=== PATIENT | female | born 1955 | race American Indian/Alaskan Native ===

== ENCOUNTER → 2017-09-29 13:35 | Outpatient (CLI) | payer OTHER, SELFPAY ==
[2017-09-29 14:53] LABS: Hemoglobin A1C% w Est Avg Glu 9.2 % (4.0-6.0)
== END ==
PROVIDERS: PCP Family Medicine; Visit Provider Family Medicine
DX: E11.610 Type 2 diabetes mellitus with diabetic neuropathic arthropathy (principal); Z79.4 Long term (current) use of insulin
CPT/HCPCS: 36415; 83036

== ENCOUNTER → 2017-12-31 12:38 | Outpatient (CLI) | payer OTHER, SELFPAY ==
[2017-12-31 13:22] LABS: Hemoglobin A1C% w Est Avg Glu 7.6 % (4.0-6.0)
[2017-12-31 13:30] LABS: Alanine Aminotransferase 26 IU/L (9-52); Albumin 4.2 g/dL (3.5-5.0); Albumin Globulin Ratio 1.3 (1.0-2.8); Alkaline Phosphatase 81 U/L (38-126); Aspartate Aminotransferase 20 IU/L (14-36); BUN Creatinine Ratio 18.6 (6-22); Bilirubin Total 0.9 mg/dL (0.2-1.3); Blood Urea Nitrogen 13 mg/dL (7-17); Calcium 9.5 mg/dL (8.4-10.2); Carbon Dioxide 30 mmol/L (22-32); Chloride 101 mmol/L (98-107); Estimated Glomerular Filt Rate > 60.0 mL/min (>60); Globulin 3.2 g/dL (1.7-4.1); Glucose 121 mg/dL (80-110); HEMOLYSIS < 15 (0-50); Potassium 4.5 mmol/L (3.4-5.1); Sodium 143 mmol/L (137-145); Total Protein 7.4 g/dL (6.3-8.2)
== END ==
PROVIDERS: PCP Family Medicine; Visit Provider Internal Medicine
DX: E11.610 Type 2 diabetes mellitus with diabetic neuropathic arthropathy (principal); I10 Essential (primary) hypertension; Z79.4 Long term (current) use of insulin
CPT/HCPCS: 36415; 80053; 83036

== ENCOUNTER → 2018-02-17 11:55 | Outpatient (CLI) | payer OTHER, SELFPAY | PROVIDERS: PCP Family Medicine; Visit Provider Internal Medicine | DX: S81.801A Unspecified open wound, right lower leg, initial encounter (principal) | CPT/HCPCS: 87070; 87075; 87205 ==

== ENCOUNTER 2018-04-20 20:45 | Inpatient (IN) | payer OTHER, SELFPAY ==
[2018-04-20] VITALS (7 sets, daily range): BP systolic 181–223; BP diastolic 64–104; PULSE 90–102; RESP 25–28; TEMP 37.3–39.4; O2SAT 90–96; BMI 51.5
--- NOTE | 2018-04-20 21:00 | ED.FEVER ---
HPI - Fever General Chief Complaint: Fever Stated Complaint: COUGHING Time Seen by Provider: 04/20/18 20:53 Source: patient Mode of arrival: ambulatory Limitations: no limitations History of Present Illness HPI Narrative: 62-year-old female with history of insulin-dependent diabetes and congestive heart failure here for evaluation of approximately 3 days of fever, cough, not feeling well. Patient denies any history of COPD. Is not on oxygen at home. Denies any chest pain. Has not tried anything for symptoms prior to arrival. Related Data Previous Rx's Medication Instructions Recorded fluoxetine 20 mg PO Q DAY #90 cap 01/29/16 atorvastatin [Lipitor] 1 tab OR HS #90 tab 04/23/16 Glucose: Test Strips 0 str EXT BID #60 str 08/26/16 Glucose: Home Monitoring Kit 0 kit BID #1 ea 09/16/16 insulin glargine [Lantus U-100 0 unit SQ SEE INSTRUCTIONS #6 bot 12/27/16 Insulin] fluticasone 1 spray INTRANASAL BID #16 gm 06/09/17 gabapentin [Neurontin] 300 mg PO TID #270 cap 06/09/17 furosemide [Lasix] 20 mg PO QDAY #180 tab 07/21/17 metoprolol succinate ER 100 mg 100 mg PO DAILY #180 tab 08/11/17 tablet,extended release 24 hr omeprazole 40 mg capsule,delayed 40 mg PO QDAY #90 cap 08/11/17 release emollient combination no.72 lotion 1 each TOP BID #250 ml 09/29/17 loratadine 10 mg tablet 10 mg PO DAILY #90 tab 09/29/17 insulin aspart U-100 100 unit/mL 32 unit SUBCUT BID #3 vial 12/23/17 subcutaneous solution meloxicam 7.5 mg tablet 7.5 mg PO BIDCC #60 tab 12/29/17 lisinopril 40 mg tablet 40 mg PO QDAY #90 tab 01/20/18 Syringes: Ultra Fine Insulin #100 each 01/30/18 Syringe w/Needle mupirocin 2 % topical ointment 1 applictn TOP BID #30 gram 02/17/18 oxycodone-acetaminophen 5 mg-325 1 tab PO Q6HP PRN #30 tab 03/25/18 mg tablet tolterodine ER 4 mg 4 mg PO DAILY #30 cap 04/02/18 capsule,extended release 24 hr nystatin 100,000 unit/gram topical 1 applictn TOP BID #15 gram 04/03/18 ointment metformin 1,000 mg tablet 1,000 mg PO BIDCC #60 tab 04/09/18 Allergies Allergy/AdvReac Type Severity Reaction Status Date / Time No Known Drug Allergies Allergy Verified 04/20/18 21:02 Review of Systems Constitutional Reports fever(s), Denies headache(s), Reports lethargy and Reports malaise ENT Ears, Nose, Mouth, and Throat: Denies headache(s) Cardiovascular Denies chest pain and Reports dyspnea Respiratory Reports pain with cough and Reports dyspnea Gastrointestinal Gastrointestinal: Denies abdominal pain, Denies nausea and Denies vomiting Genitourinary Denies dysuria Musculoskeletal Reports myalgias Integumentary/Breasts Denies rash Neurologic Denies behavioral changes and Denies headache(s) Psychiatric Denies behavioral changes Hematologic/Lymphatic Comments: Not on anticoagulation PFSH Medical History Congestive heart failure (Acute) Heart disease (Acute) History of hysterectomy (Acute) Osteoarthritis (Acute) Diabetes mellitus (Chronic) Hypertension (Chronic) Peripheral neuropathy (Chronic) Sleep apnea (Chronic) Surgical History History of cholecystectomy (Resolved) History of knee replacement (Resolved 01/2015) Social History household members: family and children Smoking Status: Never smoker Exam Initial Vital Signs Initial Vital Signs: Vital Signs Temperature 102.9 F H 04/20/18 20:58 Pulse Rate 102 H 04/20/18 20:58 Respiratory Rate 28 H 04/20/18 20:58 Blood Pressure 215/91 H 04/20/18 20:58 Pulse Oximetry 90 L 04/20/18 20:58 Const General: cooperative, well groomed, No acute distress and ill appearing Orientation: alert, awake and oriented x3 HENMT Head: normal to inspection and normocephalic Chest Chest: normal inspection of the chest Resp Effort & Inspection: cough, labored, no retractions and tachypneic Auscultation: diminished lung sounds Cardio Rate: regular rate Rhythm: regular rhythm GI Inspection: non-distended Palpation: soft Skin Lesions: no lesions Rashes: no rashes Neuro General: alert, awake and oriented x3 Cognition: normal cognition Speech: speech normal Sensory Exam: no sensory deficits noted Extrem General: normal to inspection and capillary refill normal Psych Appearance: grossly normal and well kempt Course Orders Ordered: ED Orders 04/20/18 20:55 FLU A and B [Influenza A and B by PCR Rapid] Stat 04/20/18 21:00 Chest [XR chest 1V] Stat 04/20/18 21:01 RT Consult Eval and Treat Now 04/20/18 21:05 EKG-12 Lead Stat 04/20/18 21:18 B Type Natriuretic Peptide Stat Complete Blood Count AUTO DIFF Stat Comprehensive Metabolic Panel Stat Ketones (Beta-Hydroxybutyrate) Stat Lactate (Lactic Acid) Stat Lipase Stat Procalcitonin Stat Troponin I Stat 04/20/18 21:20 Blood Culture Stat 04/21/18 Stool Culture Routine Troponin I Routine Urinalysis and Microscopic Routine 04/21/18 00:23 Magnesium Routine 04/21/18 00:28 Consult to Dietitian, Adult Routine Consult to Discharge Planning Routine 04/21/18 00:29 Hemoglobin A1C % Routine 04/21/18 00:30 Consult to Respiratory Therapy Evaluate & Treat Respiratory Panel Routine 04/21/18 05:00 Basic Metabolic Panel DAILY Complete Blood Count AUTO DIFF DAILY 04/22/18 05:00 Basic Metabolic Panel DAILY Complete Blood Count AUTO DIFF DAILY 04/23/18 05:00 Basic Metabolic Panel DAILY Complete Blood Count AUTO DIFF DAILY 04/24/18 05:00 Basic Metabolic Panel DAILY Complete Blood Count AUTO DIFF DAILY Acetaminophen (Tylenol) 650 mg PO Q6HR PRN PRN Reason: As Needed for Fever/Mild Pain Hydrocodone Bitart/Acetaminophen ([place] 5/325) 1 tab PO Q4HR PRN PRN Reason: Pain, Moderate (4-6) Last Admin: 04/21/18 01:51 Dose: 1 tab Hydrocodone Bitart/Acetaminophen ([place] 5/325) 2 tab PO Q4HR PRN PRN Reason: Pain, Severe (7-10) Al Hydrox/Mg Hydrox/Simethicone (Maalox Plus) 30 ml PO Q6HR PRN PRN Reason: Dyspepsia Albuterol/Ipratropium (Duoneb) 3 ml INH Q4H PRN PRN Reason: Shortness Of Breath Albuterol/Ipratropium (Duoneb) 3 ml INH RTBID [place] Atorvastatin Calcium (Lipitor) 40 mg PO BEDTIME [place] Last Admin: 04/21/18 01:41 Dose: Calcium Carbonate (Tums) 1,000 mg PO Q4HR PRN PRN Reason: Dyspepsia Enoxaparin Sodium (Lovenox) 40 mg SUBCUT DAILY [facility] Furosemide (Lasix) 20 mg PO DAILY [facility] Gabapentin (Neurontin) 300 mg PO TID [facility] Azithromycin 500 mg/ Dextrose 250 mls @ 250 mls/hr IV Q24H [facility] Stop: 04/24/18 00:44 Last Admin: 04/21/18 02:41 Dose: 250 mls/hr Ceftriaxone Sodium/Dextrose (Rocephin) 1 gm in 50 mls @ 100 mls/hr IV Q24H [facility] Stop: 04/26/18 00:34 Last Infusion: 04/21/18 02:43 Dose: 0 mls/hr Admin: 04/21/18 01:57 Dose: 100 mls/hr Sodium Chloride (Normal Saline 0.9%) 250 mls @ 21 mls/hr IV Q24H PRN PRN Reason: Flush Last Admin: 04/21/18 01:57 Dose: 21 mls/hr Lisinopril (Zestril) 40 mg PO DAILY [facility] Last Admin: 04/21/18 01:35 Dose: Metformin HCl (Glucophage) 1,000 mg PO BIDWM [facility] Last Admin: 04/21/18 01:36 Dose: Metoprolol Succinate (Toprol Xl) 100 mg PO DAILY [facility] Naloxone HCl (Narcan) 0.2 mg IV Q2MIN PRN PRN Reason: Opiate Reversal Ondansetron HCl (Zofran Odt) 4 mg PO Q8HR PRN PRN Reason: Nausea And Vomiting Discontinued Medications Acetaminophen (Tylenol) 650 mg PO NOW ONE Stop: 04/20/18 21:07 Last Admin: 04/20/18 21:16 Dose: 650 mg Sodium Chloride (Normal Saline 0.9%) 4,218.42 mls @ 1,406.14 mls/hr 30 ml/kg infuse over 3 hr (4218.42 ml) IV CONT [facility] Last Infusion: 04/21/18 01:02 Dose: 0 mls/hr Admin: 04/20/18 21:20 Dose: 1,406.14 mls/hr Levofloxacin (Levaquin) 750 mg in 150 mls @ 100 mls/hr IV NOW ONE Stop: 04/20/18 22:36 Last Infusion: 04/20/18 23:00 Dose: 0 mls/hr Admin: 04/20/18 21:27 Dose: 100 mls/hr Vital Signs - 8 hr 04/20/18 20:58 04/20/18 21:00 04/20/18 21:16 Temperature 102.9 F H 102.9 F H 103 F H Pulse Rate 102 H 95 H Respiratory Rate 28 H 25 H Blood Pressure 215/91 H Blood Pressure [Left Wrist] 223/104 H Pulse Oximetry 90 L 93 04/20/18 22:09 04/20/18 23:01 04/20/18 23:36 Temperature 99.1 F Pulse Rate 97 H 90 Respiratory Rate 26 H 25 H Blood Pressure Blood Pressure [Left Wrist] 192/80 H 181/64 H Pulse Oximetry 93 96 04/20/18 23:51 04/21/18 00:50 Temperature 99.6 F 98.4 F Pulse Rate 88 Respiratory Rate 20 Blood Pressure 185/84 H Blood Pressure [Left Wrist] Pulse Oximetry 98 MDM - Fever Lab Data Attestation: I reviewed the patient's lab results. Result diagrams: 04/20/18 21:18 04/20/18 21:18 Lab Results 04/20/18 04/20/18 04/20/18 Range/Units 20:55 21:18 21:18 WBC 6.3 (4.5-11.0) X10^3/uL RBC 4.70 (4.0-5.2) X10^6/uL Hgb 13.6 (12.0-16.0) g/dL Hct 40.9 (36-46) % MCV 87.1 (80-100) fL MCH 28.9 (26-34) PG MCHC 33.2 (30-36) % RDW 13.2 (11.6-14.8) % Plt Count 208 (150-400) X10^3/uL Neut % (Auto) 76.6 H (50-75) % Lymph % (Auto) 14.8 L (25-40) % [place] % (Auto) 7.9 (3-14) % Eos % (Auto) 0.2 L (2-4) % Baso % (Auto) 0.5 (0-2) % Neut # (Auto) 4800 (3110-0106) /uL Lymph # (Auto) 900 L (2256-8551) /uL [place] # (Auto) 500 (0-900) /uL Eos # (Auto) 0 (0-450) /uL Baso # (Auto) 0 (0-100) /uL Sodium (137-145) mmol/L Potassium (3.4-5.1) mmol/L Chloride (98-107) mmol/L Carbon Dioxide (22-32) mmol/L BUN (7-17) mg/dL Creatinine (0.52-1.04) mg/dL Estimated GFR (>60) mL/min BUN/Creatinine Ratio (6-22) Glucose (80-110) mg/dL Hemoglobin A1c (4.0-6.0) % Lactate (0.7-2.1) mmol/L Calcium (8.4-10.2) mg/dL Magnesium (1.6-2.3) mg/dL Total Bilirubin (0.2-1.3) mg/dL AST (14-36) IU/L ALT (9-52) IU/L Alkaline Phosphatase (38-126) U/L Troponin I (0.01-0.034) ng/mL B-Natriuretic Peptide < 100 (<100) Total Protein (6.3-8.2) g/dL Albumin (3.5-5.0) g/dL Globulin (1.7-4.1) g/dL Albumin/Globulin Ratio (1.0-2.8) Lipase (23-300) U/L Procalcitonin (<0.5) ng/mL Ketones 0.97 H (<0.27) mmol/L Influenza A & B (PCR) Negative (Negative) 04/20/18 04/20/18 04/20/18 Range/Units 21:18 21:18 21:18 WBC (4.5-11.0) X10^3/uL RBC (4.0-5.2) X10^6/uL Hgb (12.0-16.0) g/dL Hct (36-46) % MCV (80-100) fL MCH (26-34) PG MCHC (30-36) % RDW (11.6-14.8) % Plt Count (150-400) X10^3/uL Neut % (Auto) (50-75) % Lymph % (Auto) (25-40) % [place] % (Auto) (3-14) % Eos % (Auto) (2-4) % Baso % (Auto) (0-2) % Neut # (Auto) (4154-2372) /uL Lymph # (Auto) (8959-4059) /uL [place] # (Auto) (0-900) /uL Eos # (Auto) (0-450) /uL Baso # (Auto) (0-100) /uL Sodium 134 L (137-145) mmol/L Potassium 3.8 (3.4-5.1) mmol/L Chloride 97 L (98-107) mmol/L Carbon Dioxide 25 (22-32) mmol/L BUN 8 (7-17) mg/dL Creatinine 0.80 (0.52-1.04) mg/dL Estimated GFR > 60.0 (>60) mL/min BUN/Creatinine Ratio 10.0 (6-22) Glucose 279 H (80-110) mg/dL Hemoglobin A1c (4.0-6.0) % Lactate 1.1 (0.7-2.1) mmol/L Calcium 8.2 L (8.4-10.2) mg/dL Magnesium (1.6-2.3) mg/dL Total Bilirubin 1.0 (0.2-1.3) mg/dL AST 25 (14-36) IU/L ALT 37 (9-52) IU/L Alkaline Phosphatase 90 (38-126) U/L Troponin I < 0.012 (0.01-0.034) ng/mL B-Natriuretic Peptide (<100) Total Protein 7.6 (6.3-8.2) g/dL Albumin 4.1 (3.5-5.0) g/dL Globulin 3.5 (1.7-4.1) g/dL Albumin/Globulin Ratio 1.2 (1.0-2.8) Lipase 10 L (23-300) U/L Procalcitonin < 0.05 (<0.5) ng/mL Ketones (<0.27) mmol/L Influenza A & B (PCR) (Negative) 04/20/18 04/20/18 Range/Units 21:18 21:18 WBC (4.5-11.0) X10^3/uL RBC (4.0-5.2) X10^6/uL Hgb (12.0-16.0) g/dL Hct (36-46) % MCV (80-100) fL MCH (26-34) PG MCHC (30-36) % RDW (11.6-14.8) % Plt Count (150-400) X10^3/uL Neut % (Auto) (50-75) % Lymph % (Auto) (25-40) % [place] % (Auto) (3-14) % Eos % (Auto) (2-4) % Baso % (Auto) (0-2) % Neut # (Auto) (9468-6980) /uL Lymph # (Auto) (2372-1679) /uL [place] # (Auto) (0-900) /uL Eos # (Auto) (0-450) /uL Baso # (Auto) (0-100) /uL Sodium (137-145) mmol/L Potassium (3.4-5.1) mmol/L Chloride (98-107) mmol/L Carbon Dioxide (22-32) mmol/L BUN (7-17) mg/dL Creatinine (0.52-1.04) mg/dL Estimated GFR (>60) mL/min BUN/Creatinine Ratio (6-22) Glucose (80-110) mg/dL Hemoglobin A1c 9.7 H (4.0-6.0) % Lactate (0.7-2.1) mmol/L Calcium (8.4-10.2) mg/dL Magnesium 1.7 (1.6-2.3) mg/dL Total Bilirubin (0.2-1.3) mg/dL AST (14-36) IU/L ALT (9-52) IU/L Alkaline Phosphatase (38-126) U/L Troponin I (0.01-0.034) ng/mL B-Natriuretic Peptide (<100) Total Protein (6.3-8.2) g/dL Albumin (3.5-5.0) g/dL Globulin (1.7-4.1) g/dL Albumin/Globulin Ratio (1.0-2.8) Lipase (23-300) U/L Procalcitonin (<0.5) ng/mL Ketones (<0.27) mmol/L Influenza A & B (PCR) (Negative) Point of Care Testing Glucose POC 268 Imaging Data Chest x-ray: Radiologist's impression: PROCEDURE: XR CHEST 1V INDICATIONS: shortness of breath/fever TECHNIQUE: One view of the chest was acquired. COMPARISON: [facility], CHEST 2 VIEW, 05/20/2016, 16:21. [facility], CHEST 2 VIEW, 04/19/2016, 12:03. FINDINGS: Surgical changes and devices: None. Lungs and pleura: No pleural effusions or pneumothorax. Mild increased pulmonary vascularity. Minimal increased right basilar opacity. Mediastinum: Mediastinal contours appear normal. Heart size is normal. Bones and chest wall: No suspicious bony lesions. Overlying soft tissues appear unremarkable. IMPRESSION: Mild increased vascularity with minimal increased right basilar opacity. The latter could be represent focal edema or developing airspace disease such as pneumonia and/or atelectasis. Dictated by: Dianne Dominguez M.D. on 04/20/2018 at 21:36 Approved by: Dianne Dominguez M.D. on 04/20/2018 at 21:37 ECG Data Attestation: I personally reviewed and interpreted this ECG as follows: Prior ECG tracings: not available for review Interpretation: Sinus rhythm Ventricular rate of 96 Normal axis Normal QRS Normal QTC No ST T wave changes MDM Narrative Medical decision making narrative: Patient arrived was tachypneic and hypoxic to the high 80s on room air. This improved with oxygen by nasal cannula. Chest x-ray is concerning for pneumonia. She was given antibiotics here in the emergency department. She was hyper glycemic however the rest of her workup was negative for DKA. Blood cultures were obtained. Lactate and procalcitonin was negative. Clinically patient has pneumonia. Discussed case with an piece got the night hospitalist who will admit the patient for further evaluation and treatment. Discharge Plan Departure Patient Disposition: Admitted As Inpatient Clinical Impression: Pneumonia, Hyperglycemia, Fever, Shortness of breath Discharge Date/Time: 04/21/18 01:02 Interventions: ED Discharge Assessment Last Done: 04/21/18 01:01 Admit Date/Time: 04/20/18 23:57 Admit Provider: Eduardo Sims
[2018-04-20] MEDS: ACETAMINOPHEN 325 MG TABLET 650 MG PO (21:16)
[2018-04-20 21:17] LABS: Influenza A and B by PCR Rapid Negative (Negative)
[2018-04-20] MEDS: SODIUM CHLORIDE 0.9% 1406.14 ML IV (21:20)
--- NOTE | 2018-04-20 21:21 | PC.NURSE ---
1000ml NS started of septic fluid bolus
[2018-04-20] MEDS: levoFLOXacin 750 MG/150 ML PIGGYBACK 100 MG IV (21:27)
--- NOTE | 2018-04-20 21:27 | PC.NURSE ---
blood cultures drawn, abx started
[2018-04-20 21:32] LABS: Add Manual Diff / Slide Review NO; Basophils Absolute Auto 0 /uL (0-100); Basophils Percent Auto 0.5 % (0-2); Eosinophils Absolute Auto 0 /uL (0-450); Eosinophils Percent Auto 0.2 % (2-4); Hematocrit 40.9 % (36-46); Hemoglobin 13.6 g/dL (12.0-16.0); Lymphocytes Absolute Auto 900 /uL (1100-4500); Lymphocytes Percent Auto 14.8 % (25-40); Mean Corpuscular HGB Conc 33.2 % (30-36); Mean Corpuscular Hemoglobin 28.9 PG (26-34); Mean Corpuscular Volume 87.1 fL (80-100); Monocytes Absolute Auto 500 /uL (0-900); Monocytes Percent Auto 7.9 % (3-14); Neutrophils Absolute Auto 4800 /uL (1500-7000); Neutrophils Percent Auto 76.6 % (50-75); Platelet Count 208 X10^3/uL (150-400); Red Cell Distribution Width 13.2 % (11.6-14.8); White Blood Cell Count 6.3 X10^3/uL (4.5-11.0)
[2018-04-20 21:42] LABS: Lactate (Lactic Acid) 1.1 mmol/L (0.7-2.1)
[2018-04-20 21:43] LABS: Alanine Aminotransferase 37 IU/L (9-52); Albumin 4.1 g/dL (3.5-5.0); Albumin Globulin Ratio 1.2 (1.0-2.8); Alkaline Phosphatase 90 U/L (38-126); Aspartate Aminotransferase 25 IU/L (14-36); Blood Urea Nitrogen 8 mg/dL (7-17); Calcium 8.2 mg/dL (8.4-10.2); Carbon Dioxide 25 mmol/L (22-32); Chloride 97 mmol/L (98-107); Estimated Glomerular Filt Rate > 60.0 mL/min (>60); Globulin 3.5 g/dL (1.7-4.1); Glucose 279 mg/dL (80-110); HEMOLYSIS < 15 (0-50); Lipase 10 U/L (23-300); Potassium 3.8 mmol/L (3.4-5.1); Sodium 134 mmol/L (137-145); Total Protein 7.6 g/dL (6.3-8.2)
[2018-04-20 21:47] LABS: Ketones (Beta-Hydroxybutyrate) 0.97 mmol/L (<0.27)
[2018-04-20 22:00] LABS: Troponin I < 0.012 ng/mL (0.01-0.034)
[2018-04-20 22:05] LABS: Procalcitonin < 0.05 ng/mL (<0.5)
[2018-04-20 22:09] LABS: B Type Natriuretic Peptide < 100 (<100)
--- NOTE | 2018-04-20 22:10 | PC.NURSE ---
on arrival pt sats were in the upper 80s, pt placed on 2l nasal cannula, sats improved to 93
--- NOTE | 2018-04-20 23:28 | PC.NURSE ---
NS bag # 2 and 3 of 4.2 hung.
[2018-04-21] VITALS (10 sets, daily range): BP systolic 140–185; BP diastolic 65–84; PULSE 61–89; RESP 16–20; TEMP 36.4–37.2; O2SAT 93–99; BMI 51.5
--- NOTE | 2018-04-21 00:44 | PM.HP.1 ---
History of Present Illness Date Patient Seen: 04/20/18 Time Patient Seen: 23:50 Chief complaint: COUGHING Narrative: Ms Jules this is a 62-year-old morbidly obese female with a history of diabetes , hypertension and CHF who presents to the hospital for acute and fever dyspnea, cough and fever. The patient states that her symptoms began abruptly 3 days ago without significant prodrome symptoms. She describes difficulty breathing, wheezing and a cough that is productive for clear sputum. She had associated nausea, vomiting and diarrhea and complains of orthostatic dizziness and headache. She also reports lower chest and epigastric pressure that is worse with deep inspiration but endorses previous cardiac workup and EKG is suggestive of an inferior [place]. Also of note patient underwent cardiac workup in 2016 with an echocardiogram in June, Lexiscan in October and a left heart catheterization in January of that year. Upon arrival in the emergency department patient's initial temperature was 102.9?. Patient was also found to have a pulse oximetry of 90% on air. The patient is also found to be hyperglycemic with a blood sugar 279 on chemistries. The patient states that she has been too sick the last few days to use her insulin indicating that she takes glargine and sliding scale insulin. 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 The patient is a past smoker having quit 40 years ago and describes herself as a social smoker at that time. Patient does not consume alcohol. She does not use recreational pharmaceuticals or cannabis products. Advanced directives: The patient wishes full resuscitation, she has not designated a surrogate decision maker. Meds Home Medications Medication Instructions Recorded Confirmed Type fluoxetine 20 mg PO Q DAY #90 cap 01/29/16 02/19/18 Rx atorvastatin [Lipitor] 1 tab OR HS #90 tab 04/23/16 02/19/18 Rx Glucose: Test Strips 0 str EXT BID #60 str 08/26/16 02/19/18 Rx Glucose: Home Monitoring Kit 0 kit BID #1 ea 09/16/16 02/19/18 Rx insulin glargine [Lantus U-100 0 unit SQ SEE INSTRUCTIONS #6 bot 12/27/16 02/19/18 Rx Insulin] fluticasone 1 spray INTRANASAL BID #16 gm 06/09/17 02/19/18 Rx gabapentin [Neurontin] 300 mg PO TID #270 cap 06/09/17 02/19/18 Rx furosemide [Lasix] 20 mg PO QDAY #180 tab 07/21/17 02/19/18 Rx metoprolol succinate ER 100 mg 100 mg PO DAILY #180 tab 08/11/17 02/19/18 Rx tablet,extended release 24 hr omeprazole 40 mg capsule,delayed 40 mg PO QDAY #90 cap 08/11/17 02/19/18 Rx release emollient combination no.72 lotion 1 each TOP BID #250 ml 09/29/17 02/19/18 Rx loratadine 10 mg tablet 10 mg PO DAILY #90 tab 09/29/17 02/19/18 Rx insulin aspart U-100 100 unit/mL 32 unit SUBCUT BID #3 vial 12/23/17 02/19/18 Rx subcutaneous solution meloxicam 7.5 mg tablet 7.5 mg PO BIDCC #60 tab 12/29/17 02/19/18 Rx lisinopril 40 mg tablet 40 mg PO QDAY #90 tab 01/20/18 02/19/18 Rx Syringes: Ultra Fine Insulin #100 each 01/30/18 02/19/18 Rx Syringe w/Needle mupirocin 2 % topical ointment 1 applictn TOP BID #30 gram 02/17/18 02/19/18 Rx oxycodone-acetaminophen 5 mg-325 1 tab PO Q6HP PRN #30 tab 03/25/18 Rx mg tablet tolterodine ER 4 mg 4 mg PO DAILY #30 cap 04/02/18 Rx capsule,extended release 24 hr nystatin 100,000 unit/gram topical 1 applictn TOP BID #15 gram 04/03/18 Rx ointment metformin 1,000 mg tablet 1,000 mg PO BIDCC #60 tab 04/09/18 Rx Allergies Allergy/AdvReac Type Severity Reaction Status Date / Time No Known Drug Allergies Allergy Verified 04/20/18 21:02 Review of Systems Review of Systems Constitutional: Positive for fevers and chills, sweats and malaise, poor appetite Denies weight chaneg Eyes: Denies visual changes, denies floaters, diplopia ENT: Positive for headache nasal congestion and left lymph node pain, Denies hearing changes, ear pain, dysphagia, dentalgia, no neck stiffness Respiratory: Positive for cough intermittently productive for clear sputum, wheezing and shortness of breath Cardiovascular: Pleuritic low chest and epigastric pain, orthostatic dizziness denies palpitations, syncope, edema Gastrointestinal: Positive for nausea, vomiting, dry heaves, diarrhea, Denies abdominal pain, denies blood in stool. Genitourinary: denies vaginal discharge, no complains of frequency, burning or urgency, hematuria on voiding Musculoskeletal: Positive for history of osteoarthritis, partial right knee replacement, left knee pain, lumbar spine pain, denies falls, weakness, muscle cramps, myalgia or joint swelling. Integumentary: Positive for abdominal skin rash, denies skin lesions, masses, hives, itching or hair loss Neurological: denies dizziness, confusion, speech difficulties or seizures Psychiatric: denies disturbances in thought, attentions or mood, denies substance abuse Endocrine: Positive for diabetes, denies goiter, lethargy, abnormal sweating, and heat/cold intolerance. Heme/lymph: Denies lymphadenopathy, abnormal bleeding or bruising Exam Vital Signs (past 8 hours): - 04/20/18 20:58 04/20/18 21:00 04/20/18 21:16 Temperature 102.9 F H 102.9 F H 103 F H Pulse Rate 102 H 95 H Respiratory Rate 28 H 25 H Blood Pressure 215/91 H Blood Pressure [Left Wrist] 223/104 H Pulse Oximetry 90 L 93 04/20/18 22:09 04/20/18 23:01 04/20/18 23:36 Temperature 99.1 F Pulse Rate 97 H 90 Respiratory Rate 26 H 25 H Blood Pressure Blood Pressure [Left Wrist] 192/80 H 181/64 H Pulse Oximetry 93 96 04/20/18 23:51 Temperature 99.6 F Pulse Rate Respiratory Rate Blood Pressure Blood Pressure [Left Wrist] Pulse Oximetry Oxygen Delivery Method Nasal Cannula Oxygen Flow Rate 2 Narrative Exam Narrative: General: Well developed, morbidly obese female, BMI 50.6, moderately ill-appearing Skin: Warm, dry, pink, no rashes, no visible lesions HEENT: Normocephalic, PERRLA, EOMs intact without nystagmus, conjunctiva moist, sclera is anicteric, hearing grossly normal, no sinus tenderness to percussion, no rhinorrhea, oropharynx is moist and pink without lesions or exudate, on dentition, uvula midline, posterior pharynx without inflammation, left superior anterior cervical lymphadenopathy Neck: Supple, no masses, thyroid non tender without thyromegaly or nodules, trachea midline, no carotid bruits or JVD, no supraclavicular lymphadenopathy Cardiac: Regular rate and rhythm, S1-S2, no murmur, no gallops or rubs, 2+ radial pulse, 1+ dorsalis pedis pulse, capillary refill is brisk, trace pedal edema Chest: No pain to AP and lateral compression, shallow respirations, symmetrical movement, breathing non labored, dry nonproductive cough present, BS diminished globally with expiratory wheezes, right basilar crackles not clearing with cough Abdomen: Large round, no epigastric or abdominal tenderness or guarding, no masses or organomegaly, exam limited by body habitus no flank or suprapubic pain, BS normal. Back: Normal curvature, lumbar tenderness to palpation, no palpable muscle spasms, no CVA tenderness on percussion Extremities: Preserved range of motion, no synovial effusions or deformities, strength 5/5 and symmetrical, stable gait without accessory devices Neuro: AAOx4, cranial nerves II-XII grossly intact, reflexes 1+ and symmetrical no paresthesias Psych: Somewhat flat affect, cooperative, stable mood and congruent affect Objective Labs Result Diagrams: 04/20/18 21:18 04/20/18 21:18 Labs: Laboratory Results - last 24 hr 04/20/18 04/20/18 04/20/18 20:55 21:18 21:18 WBC 6.3 RBC 4.70 Hgb 13.6 Hct 40.9 MCV 87.1 MCH 28.9 MCHC 33.2 RDW 13.2 Plt Count 208 Neut % (Auto) 76.6 H Lymph % (Auto) 14.8 L [place] % (Auto) 7.9 Eos % (Auto) 0.2 L Baso % (Auto) 0.5 Neut # (Auto) 4800 Lymph # (Auto) 900 L [place] # (Auto) 500 Eos # (Auto) 0 Baso # (Auto) 0 Sodium Potassium Chloride Carbon Dioxide BUN Creatinine Estimated GFR BUN/Creatinine Ratio Glucose Lactate Calcium Total Bilirubin AST ALT Alkaline Phosphatase Troponin I B-Natriuretic Peptide < 100 Total Protein Albumin Globulin Albumin/Globulin Ratio Lipase Procalcitonin Ketones 0.97 H Influenza A & B (PCR) Negative 04/20/18 04/20/18 04/20/18 21:18 21:18 21:18 WBC RBC Hgb Hct MCV MCH MCHC RDW Plt Count Neut % (Auto) Lymph % (Auto) [place] % (Auto) Eos % (Auto) Baso % (Auto) Neut # (Auto) Lymph # (Auto) [place] # (Auto) Eos # (Auto) Baso # (Auto) Sodium 134 L Potassium 3.8 Chloride 97 L Carbon Dioxide 25 BUN 8 Creatinine 0.80 Estimated GFR > 60.0 BUN/Creatinine Ratio 10.0 Glucose 279 H Lactate 1.1 Calcium 8.2 L Total Bilirubin 1.0 AST 25 ALT 37 Alkaline Phosphatase 90 Troponin I < 0.012 B-Natriuretic Peptide Total Protein 7.6 Albumin 4.1 Globulin 3.5 Albumin/Globulin Ratio 1.2 Lipase 10 L Procalcitonin < 0.05 Ketones Influenza A & B (PCR) PATIENT NAME: ROSE MARIE JULES : 1955 EXAM DATE: 04/20/2018 21:[address] MOLLY LINDSAY M.D. CC: MODALITY: CR PATIENT TYPE: ER CONTRAST MEDIA: STATION ID: [id number] FLUORO TIME: PROCEDURE: XR CHEST 1V INDICATIONS: shortness of breath/fever TECHNIQUE: One view of the chest was acquired. COMPARISON: [facility], CHEST 2 VIEW, 05/20/2016, 16:21. [facility], CHEST 2 VIEW, 04/19/2016, 12:03. FINDINGS: Surgical changes and devices: None. Lungs and pleura: No pleural effusions or pneumothorax. Mild increased pulmonary vascularity. Minimal increased right basilar opacity. Mediastinum: Mediastinal contours appear normal. Heart size is normal. Bones and chest wall: No suspicious bony lesions. Overlying soft tissues appear unremarkable. IMPRESSION: Mild increased vascularity with minimal increased right basilar opacity. The latter could be represent focal edema or developing airspace disease such as pneumonia and/or atelectasis. Dictated by: Dianne Dominguez M.D. on 04/20/2018 at 21:36 Approved by: Dianne Dominguez M.D. on 04/20/2018 at 21:37 Assessment & Plan Plan: Assessment/Plan Narrative: 1. Pneumonia, community acquired, acute -patient presents with sudden onset of symptoms 3 days ago with intermittently productive cough and high fever -white cell count is 6.3 however there is a left shift present, procalcitonin and lactate are both negative, flu a and B are negative, -chest x-ray demonstrates right basilar opacity -will obtain a respiratory panel -antibiotics azithromycin for 2 days and ceftriaxone daily days -respiratory to consult and DuoNeb scheduled twice daily and as needed -oxygen as needed keep sats greater than 92% 2. Diabetes type 2, uncontrolled, chronic -patient presents with morbid obesity BMI of 50.6 -hyperglycemic on chemistry at 279, hemoglobin A1c 9.7 -positive for neuropathy, no evidence of nephropathy or retinopathy -patient states has not been taking her insulin the last few days due to feeling poorly -Accu-Cheks AC and HS, sliding-scale insulin. -dietary to consult, patient will need diabetic education 3. Congestive heart failure, present on admission, chronic -chest x-ray demonstrates vascular congestion -troponin is less than 0.012, will recheck troponin with morning labs -prior history of echocardiogram in June 2016 demonstrating normal left ventricle with diastolic dysfunction, EF 60-65% at that time. Patient had 1 Lexiscan on 10/25/2016 and like heart catheterization on 01/23/2017. -12 lead EKG is suggestive of inferior infarct with small Q-waves inferiorly, questionable ST depression in V5 and V6 however there are no EKG changes compared with tracing of 08/15/2016. -patient has been on Lasix 20 mg daily it appears dehydrated and has only trace pedal edema bilateral ankles. She received 1 L of IV fluid emergency department. 4. Hypertension, present on admission, chronic -patient's pressures in the ER are variable between 130s and 180s -blood pressures have been taken on patient's wrist due to obesity -patient typically takes lisinopril 40 metoprolol 100 for hypertension which will be continued 5. Hyperlipidemia, chronic, presumed stable -the patient is taking atorvastatin 40 mg daily 6. Osteoarthritis, chronic -patient has had a partial knee replacement on the right has chronic pain left -patient also describes chronic lumbar spine pain -she has been taking gabapentin 300 mg t.i.d. which will be continued ,-will cover pain with Tylenol and 1-2 [place] as needed The patient is admitted inpatient and will remain past 2 midnights.
[2018-04-21 00:48] LABS: Magnesium 1.7 mg/dL (1.6-2.3)
--- NOTE | 2018-04-21 01:03 | PC.NURSE ---
Fluids to be continued in acute care. ED provider reccomended AC RN get an order to stop fluids and change to TKO rate. JOB Polanco informed by JOB everett.
[2018-04-21 01:12] LABS: Hemoglobin A1C% w Est Avg Glu 9.7 % (4.0-6.0)
[2018-04-21] MEDS: HYDROCODONE/ACET 5/325 TABLET 1 TAB PO ×2 (01:51→09:23)
[2018-04-21] MEDS: SODIUM CHLORIDE 0.9% 250 ML 21 ML IV (01:57)
[2018-04-21] MEDS: CEFTRIAXONE 1 GM/50 ML FROZ.PIGGY IV (01:57)
[2018-04-21] MEDS: AZITHROMYCIN 500 MG in DEXTROSE 5% IN WATER 250 ML IV (02:41)
--- NOTE | 2018-04-21 05:24 | PC.NURSE ---
Shift note: Admitted pt to unit 00:50, pt able to ambulate with FWW but c/o SOB and weakness, also states that she has no cartilage in left knee which makes walking difficult and hx of partial right knee replacement, uses walker or cane at home. Pt has bruising to sacrum but denies recent falls. Pt reports hx of ulcer to right lower extremity that at admission is slightly indurated but appears to be healed. Pt c/o diarrhea since start of illness 3 days ago, and has a hx of stress incontinence for which she wears an adult brief since 1987. Diarrhea was present in brief and adelita-care and brief change were performed, subsequent order for stool and urine sample ordered d/t on-going c/o diarrhea. Pt has various c/o pain but specifically in her back that was 8/10 on pain scale and treated per JUN. Pt appeared to be resting comfortably and this RN noted that pt was talking in her sleep. VSS noted for hypertension of 185/84 on admission with hx of HTN managed with medications. Breath sounds were absent in the bases and diminished throughout with no wheezing or adventitious breath sounds but pt unable to take deep breaths d/t complaints of pain on inspiration. At this time on 2L NC with O2 sat of 99. Pt given abx per JUN but no IV fluids at this time d/t CHF and PIV is saline locked.
[2018-04-21 06:45] LABS: Add Manual Diff / Slide Review NO; Basophils Absolute Auto 0 /uL (0-100); Basophils Percent Auto 0.6 % (0-2); Eosinophils Absolute Auto 0 /uL (0-450); Eosinophils Percent Auto 0.2 % (2-4); Hematocrit 38.4 % (36-46); Hemoglobin 12.6 g/dL (12.0-16.0); Lymphocytes Absolute Auto 1100 /uL (1100-4500); Lymphocytes Percent Auto 18.9 % (25-40); Mean Corpuscular HGB Conc 32.9 % (30-36); Mean Corpuscular Hemoglobin 28.8 PG (26-34); Mean Corpuscular Volume 87.6 fL (80-100); Monocytes Absolute Auto 500 /uL (0-900); Monocytes Percent Auto 9.3 % (3-14); Neutrophils Absolute Auto 4000 /uL (1500-7000); Platelet Count 181 X10^3/uL (150-400); Red Blood Cell Count 4.38 X10^6/uL (4.0-5.2); Red Cell Distribution Width 13.4 % (11.6-14.8); White Blood Cell Count 5.7 X10^3/uL (4.5-11.0)
[2018-04-21 06:51] LABS: BUN Creatinine Ratio 11.7 (6-22); Blood Urea Nitrogen 7 mg/dL (7-17); Calcium 7.4 mg/dL (8.4-10.2); Carbon Dioxide 24 mmol/L (22-32); Chloride 102 mmol/L (98-107); Estimated Glomerular Filt Rate > 60.0 mL/min (>60); Glucose 243 mg/dL (80-110); HEMOLYSIS < 15 (0-50); Potassium 3.9 mmol/L (3.4-5.1); Sodium 135 mmol/L (137-145)
[2018-04-21 07:09] LABS: Troponin I < 0.012 ng/mL (0.01-0.034)
--- NOTE | 2018-04-21 08:54 | CM.DANOTE ---
DCP: Case received, EMR reviewed and met with patient. Introduced self and role. DCP template completed with information currently available. Patient is a 62 year old female who admitted yesterday evening to the care of the hospitalist team. PCP: Dr. Patel. Payer: confirmed: [facility]. Patient came to hospital via family vehicle due to severe cough and weakness. Patient has history of IDDM as well as CHF. Patient carries diagnosis of Pneumonia. Met with patient in room. Pleasant, alert and oriented. 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 Has other son and [id number] as well, and offer support as well. She stated that her son has family to care for him while she is here in hospital. Patient is independent at home, uses no walker or cane, and drives. Asked her if she had any issues wither her medications, insulin, etc. She stated that she has had no problem with her medications to manage her blood sugars. Patient stated that these symptoms of coughing had gone on for approximately 3 ays, and she developed a fever as well. She has been for 25 years, and is a full code. P: DCP to continue to follow and offer any resources that patient may need at discharge. She should be able to go home when she is medically stable. Fatmata Mendenhall RN/Quality Assurance Nurse
[2018-04-21] MEDS: ACETAMINOPHEN 325 MG TABLET 650 MG PO (09:24)
[2018-04-21] MEDS: FUROSEMIDE 20 MG TABLET PO (09:25)
[2018-04-21] MEDS: METFORMIN HCL 500 MG TABLET 1000 MG PO ×2 (09:25→17:01)
[2018-04-21] MEDS: ENOXAPARIN 40 MG/0.4 ML SYRINGE SUBCUT (09:25)
[2018-04-21] MEDS: METOPROLOL ER 50 MG TABLET 100 MG PO (09:26)
[2018-04-21] MEDS: GABAPENTIN 300 MG CAPSULE PO ×2 (09:26→20:45)
[2018-04-21] MEDS: LISINOPRIL 20 MG TABLET 40 MG PO (09:26)
[2018-04-21] MEDS: ALBUTEROL/IPRATROPIUM 3 ML AMPUL INH ×2 (09:28→19:41)
--- NOTE | 2018-04-21 13:12 | PC.NURSE ---
Addendum entered by Angelique Layton R.N. 04/21/18 15:52: Note left for Dr Villa requesting that she order the sliding scale insulin that this copywriter had talked with her about earlier (I tried but could not figure out to input it and pharmacy couldn't help me either). Also, mentioned in the note that patient had 1 bottle (anaerobic) of blood cultures positive for Gram+ Cocci. Placed on contact and droplet isolation. Droplet per MD Villa, as a cautionary for possible norovirus, until all cultures come back. Original Note: Home med list: Patient unsure exactly which meds she takes. Her PCP was Dr Linn at [facility] and she was not due to see her new PCP until later this month. This copywriter left message at [facility] (via machine packager to pass on to RN) asking if they can fax up a copy of her list of meds from Dr Linn. Will look out for fax, office is open until 1700 if fax not received.
[2018-04-21 16:05] LABS: RBC Urine None Seen (0-5/HPF)
[2018-04-21 16:08] LABS: Appearance Urine UA CLEAR; Bilirubin Urine UA NEGATIVE (NEGATIVE); Color Urine UA YELLOW; Glucose Urine UA 2+ g/dL (Negative); Ketones Urine UA 1+ (NEGATIVE); Leukocyte Esterase Urine UA NEGATIVE (NEGATIVE); Nitrite Urine UA POSITIVE (Negative); Occult Blood Urine UA NEGATIVE (Negative); Protein Urine UA NEGATIVE (Negative); Urobilinogen Urine UA 0.2 E.U./dL (0.2)
[2018-04-21 16:15] LABS: Squamous Epithelial Cell Urine 1-5 /HPF; WBC Urine 1-5/HPF (0-5/HPF)
[2018-04-21 16:16] LABS: Bacteria Urine Moderate (10-30); Culture Indicated Urine Specimen Cultured
[2018-04-21 16:44] LABS: Enterococcus species Not Detected (Not Detect); Methicillin-resistant gene Detected (Not Detect)
[2018-04-21 16:45] LABS: Acinetobacter baumannii Not Detected (Not Detect); Candida albicans Not Detected (Not Detect); Candida glabrata Not Detected (Not Detect); Candida krusei Not Detected (Not Detect); Candida parapsilosis Not Detected (Not Detect); Candida tropicalis Not Detected (Not Detect); E. coli Not Detected (Not Detect); Enterobacter cloacae complex Not Detected (Not Detect); Enterobacteriaceae species Not Detected (Not Detect); Haemophilus influenzae Not Detected (Not Detect); Listeria monocytogenes Not Detected (Not Detect); Neisseria meningitidis Not Detected (Not Detect); Proteus species Not Detected (Not Detect); Pseudomonas aeruginosa Not Detected (Not Detect); Serratia marcescens Not Detected (Not Detect); Staphylococcus species Detected (Not Detect); Streptococcus agalactiae (Gr B Not Detected (Not Detect); Streptococcus pneumonia Not Detected (Not Detect); Streptococcus pyogenes (Gr A) Not Detected (Not Detect); Streptococcus species Not Detected (Not Detect)
[2018-04-21] MEDS: HYDROCODONE/ACET 5/325 TABLET 2 TAB PO ×2 (17:09→21:49)
[2018-04-21 18:09] LABS: Adenovirus Not Detected (Not Detect); Bordetella pertussis Not Detected (Not Detect); Chlamydophila pneumoniae Not Detected (Not Detect); Coronavirus 229E Not Detected (Not Detect); Coronavirus HKU1 Not Detected (Not Detect); Coronavirus NL 63 Not Detected (Not Detect); Coronavirus OC43 Not Detected (Not Detect); Human Metapneumovirus Not Detected (Not Detect); Human Rhinovirus/Enterovirus Not Detected (Not Detect); Influenza A Not Detected (Not Detect); Influenza B Not Detected (Not Detect); Mycoplasma pneumoniae Not Detected (Not Detect); Parainfluenza Virus 1 Not Detected (Not Detect); Parainfluenza Virus 2 Not Detected (Not Detect); Parainfluenza Virus 3 Not Detected (Not Detect); Parainfluenza Virus 4 Not Detected (Not Detect); Respiratory Syncytial Virus Detected (Not Detect)
[2018-04-21 18:11] LABS: Adenovirus F 40/41 Not Detected (Not Detect); Astrovirus Not Detected (Not Detect); Campylobacter Not Detected (Not Detect); Clostridium difficile toxin AB Not Detected (Not Detect); Cryptosporidium Not Detected (Not Detect); Cyclospora cayetanensis Not Detected (Not Detect); Entamoeba histolytica Not Detected (Not Detect); Enteroaggregative E.coli Not Detected (Not Detect); Enteropathogenic E.coli Not Detected (Not Detect); Enterotoxigenic E.coli It/st Not Detected (Not Detect); Giardia lamblia Not Detected (Not Detect); Norovirus GI/GII Not Detected (Not Detect); Plesiomonsa shigelloides Not Detected (Not Detect); Rotavirus A Not Detected (Not Detect); Salmonella Not Detected (Not Detect); Sapovirus Not Detected (Not Detect); Shiga-like toxin-prod E.coli Not Detected (Not Detect); Shigella/Enteroinvasive E.coli Not Detected (Not Detect); Vibrio Not Detected (Not Detect); Vibrio cholerae Not Detected (Not Detect); Yersinia enterocolitica Not Detected (Not Detect)
[2018-04-21] MEDS: ONDANSETRON 4 MG ODT PO (19:38)
[2018-04-21] MEDS: ATORVASTATIN 20 MG TABLET 40 MG PO (20:44)
[2018-04-21] MEDS: INSULIN ASPART 100 UNIT/ML INSULN PEN SUBCUT (20:45)
[2018-04-21] MEDS: SODIUM CHLORIDE 0.9% FLUSH 10 ML IV (20:46)
[2018-04-21] MEDS: INSULIN GLARGINE 100 UNIT/ML 3ML PEN 20 UNIT SUBCUT (20:46)
[2018-04-22] VITALS (7 sets, daily range): BP systolic 114–148; BP diastolic 56–76; PULSE 56–66; RESP 15–20; TEMP 36.5–36.6; O2SAT 93–96
[2018-04-22] MEDS: SODIUM CHLORIDE 0.9% FLUSH 10 ML IV ×3 (00:30→12:27)
[2018-04-22] MEDS: CEFTRIAXONE 1 GM/50 ML FROZ.PIGGY IV (00:30)
[2018-04-22] MEDS: ALBUTEROL/IPRATROPIUM 3 ML AMPUL INH ×3 (00:50→12:45)
[2018-04-22] MEDS: AZITHROMYCIN 500 MG in DEXTROSE 5% IN WATER 250 ML IV (01:11)
--- NOTE | 2018-04-22 01:37 | PC.NURSE ---
Addendum entered by Tawny Arita R.N. 04/22/18 05:47: Up to bathroom with walker and SBA. Noted buttocks and posterior thighs reddened but no open areas. Also noted reddened right LE with quarter size darker red area but nothing is open. Sat now while awake is 97% on 2L/min oxygen. States pain currently 2/10 and tolerable. Original Note: Addendum entered by Tawny Arita R.N. 04/22/18 03:19: Has been asleep and sats 92% with CPAP + 2L oxygen. CBG currently 267. Complains of 6/10 back pain so medicated with [place]. Original Note: Patient is alert and oriented. Breath sounds tight with expiratory wheezes throughout. Oxygen at 2L/min per NC with sat of 97%. RT placed on CPAP without oxygen but patient noted to desat into 70's so now has oxygen bled in and sat is 98%. Patient states she is coughing up clear sputum but no coughing has been noted since start of shift. HRR but bradycardic at 56 bpm. Denies nausea. BT present and abdomen is soft; had loose stools on previous shift. Denies dysuria, frequency or urgency. Is able to move self in bed but due to weakness gets out of bed only with assistance. Fall risk score is moderate; bed alarm is activated because patient does not always call appropriately. Denies pain. Wearing bilateral SCD's. On contact precautions for gm + cocci on blood culture and droplet for RSV +.
[2018-04-22] MEDS: HYDROCODONE/ACET 5/325 TABLET 1 TAB PO (03:18)
[2018-04-22] MEDS: PANTOPRAZOLE 40 MG TABLET PO (06:01)
[2018-04-22 06:25] LABS: Add Manual Diff / Slide Review NO; Basophils Absolute Auto 0 /uL (0-100); Basophils Percent Auto 0.5 % (0-2); Eosinophils Absolute Auto 200 /uL (0-450); Eosinophils Percent Auto 3.4 % (2-4); Hematocrit 37.3 % (36-46); Hemoglobin 12.2 g/dL (12.0-16.0); Lymphocytes Absolute Auto 1900 /uL (1100-4500); Mean Corpuscular HGB Conc 32.8 % (30-36); Mean Corpuscular Hemoglobin 28.8 PG (26-34); Mean Corpuscular Volume 87.9 fL (80-100); Monocytes Absolute Auto 400 /uL (0-900); Monocytes Percent Auto 8.8 % (3-14); Neutrophils Absolute Auto 2400 /uL (1500-7000); Neutrophils Percent Auto 49.3 % (50-75); Platelet Count 197 X10^3/uL (150-400); Red Blood Cell Count 4.25 X10^6/uL (4.0-5.2); Red Cell Distribution Width 13.6 % (11.6-14.8)
[2018-04-22 06:29] LABS: Blood Urea Nitrogen 8 mg/dL (7-17); Calcium 7.6 mg/dL (8.4-10.2); Carbon Dioxide 26 mmol/L (22-32); Chloride 100 mmol/L (98-107); Estimated Glomerular Filt Rate > 60.0 mL/min (>60); Glucose 320 mg/dL (80-110); HEMOLYSIS < 15 (0-50); Magnesium 1.8 mg/dL (1.6-2.3); Potassium 3.5 mmol/L (3.4-5.1); Sodium 135 mmol/L (137-145)
--- NOTE | 2018-04-22 06:39 | P.PN_ITS ---
Subjective Date Patient Seen: 04/22/18 Interval history: Donald Jules is a 62-year-old morbidly obese female with past medical history significant for hypertension, diastolic heart failure stage I, and hypertension who presented to [facility] for fever, productive cough, dyspnea, nausea, vomiting, diarrhea. Overnight: The patient was stable and there were no acute events. The patient is resting in bed comfortably and in no acute distress. He or she denies headache, ear pain, rhinitis, sore throat, cough, shortness of breath, chest pain, abdominal pain, nausea, vomiting, fever, chills, dysuria, diarrhea or constipation. He or she is voiding and eliminating without difficulty. He or she is up ambulating without or with assistance. Exam Vital Signs (past 8 hours): - 04/22/18 00:15 04/22/18 00:51 04/22/18 03:05 Temperature 97.7 F 97.8 F Pulse Rate 56 L 56 L Respiratory Rate 15 16 Blood Pressure 148/76 H 115/56 L Pulse Oximetry 96 96 93 04/22/18 05:26 Temperature Pulse Rate Respiratory Rate Blood Pressure Pulse Oximetry 96 Oxygen Delivery Method Nasal Cannula Oxygen Flow Rate 2 Narrative Exam Narrative: General: No acute distress, well-developed, well-nourished, appropriately interactive HEENT: Normocephalic, atraumatic. External ears without defect. Pupils equal, round, and reactive to light and accommodation. Anicteric sclerae, moist conjunctivae, and no lid lag. Oropharynx free of erythema and cobble stoning with moist mucosa. Neck: Supple with full range of motion. No jugular venous distension. No bruits. No lymphadenopathy or thyromegaly. Cardiovascular: Regular rate and rhythm without murmurs, rubs, or gallops appreciated Pulmonary: Clear to auscultation bilaterally without crackles, wheezes, or rhonchi. Normal respiratory effort with no use of accessory muscles. Abdomen: Bowel tones present. Soft, nontender, nondistended. No hepatosplenomegaly or masses appreciated. Extremities: No clubbing, cyanosis, or edema. Skin: Normal temperature, turgor, and texture; no rash, ulcers, or subcutaneous nodules appreciated. Neurological: Cranial nerves grossly intact. Normal muscle strength, tone, and bulk. Reflexes, coordination, and sensory function within normal limits. No known gait impairment. Psychiatric: Normal mood and affect. Alert and oriented to person, place, and time. Objective Labs Result Diagrams: 04/22/18 05:58 04/21/18 06:22 Labs: Laboratory Results - last 24 hr 04/20/18 04/21/18 04/21/18 21:18 06:20 06:22 WBC 5.7 RBC 4.38 Hgb 12.6 Hct 38.4 MCV 87.6 MCH 28.8 MCHC 32.9 RDW 13.4 Plt Count 181 Neut % (Auto) 71.0 Lymph % (Auto) 18.9 L Jackson % (Auto) 9.3 Eos % (Auto) 0.2 L Baso % (Auto) 0.6 Neut # (Auto) 4000 Lymph # (Auto) 1100 Jackson # (Auto) 500 Eos # (Auto) 0 Baso # (Auto) 0 Sodium 135 L Potassium 3.9 Chloride 102 Carbon Dioxide 24 BUN 7 Creatinine 0.60 Estimated GFR > 60.0 BUN/Creatinine Ratio 11.7 Glucose 243 H Calcium 7.4 L Troponin I Urine Color Urine Appearance Urine pH Ur Specific Downey Urine Protein Urine Glucose (UA) Urine Ketones Urine Occult Blood Urine Nitrate Urine Bilirubin Urine Urobilinogen Ur Leukocyte Esterase Urine RBC Urine WBC Ur Squamous Epith Cells Urine Bacteria Ur Culture Indicated? Stl C. cayetanensis PCR Stool Rotavirus (PCR) Stool Adenovirus (PCR) Stool Astrovirus (PCR) Stool Cryptosporidium PCR Stl E.coli Shiga Tox PCR St Sh/Enteroin Ecoli PCR Stool E coli O157 PCR Stl Enterotoxigenic E PCR Stool EPEC (PCR) Stl E. histolytica PCR Stool Giardia Lamblia PCR Stool Sapovirus (PCR) Stl P. shigelloides PCR St Y.enterocolitica PCR Stool Vibrio (PCR) Stl Vibrio cholerae PCR Stl Enteroaggr Ecoli PCR Stl Norovirus GI/GII PCR A. baumannii (PCR) Not detected Chlamy pneumoniae PCR Adenovirus (PCR) B.parapertussis DNA PCR Campylobacter (PCR) Princess albicans (PCR) Not detected C. glabrata (PCR) Not detected C. krusei (PCR) Not detected C. parapsilosis (PCR) Not detected C. tropicalis (PCR) Not detected C. difficile Tox (PCR) Coronavirus OC43 (PCR) Coronavirus HKU1 (PCR) Coronavirus 229E (PCR) Coronavirus NL63 (PCR) Enterobacteriac sp PCR Not detected E. cloacae complex PCR Not detected Enterococcus sp PCR Not detected E. coli (PCR) Not detected H. influenzae (PCR) Not detected Human Metapneumovir PCR Influenza Type A (PCR) Influenza Type B (PCR) Klebsiella oxytoca PCR Not detected Klebsiella pneumoniae Not detected List. monocytogenes PCR Not detected M. pneumoniae (PCR) N. meningitidis (PCR) Not detected Parainfluenza 1 (PCR) Parainfluenza 2 (PCR) Parainfluenza 3 (PCR) Parainfluenza 4 (PCR) Proteus species (PCR) Not detected RSV (PCR) Entero/Rhino (PCR) Salmonella (PCR) Serratia marcescens PCR Not detected Staphylococcus sp PCR Detected H Staph aureus (PCR) Not detected mecA-Methicil Res Gene Detected H Streptococcus sp PCR Not detected Group A Strep (PCR) Not detected Strep agalactiae (PCR) Not detected Strep pneumoniae (PCR) Not detected P. aeruginosa (PCR) Not detected Tito/B-Vanco Res Genes TNP KPC-Carbap Res Gene PCR TNP 04/21/18 04/21/18 04/21/18 06:22 10:30 15:59 WBC RBC Hgb Hct MCV MCH MCHC RDW Plt Count Neut % (Auto) Lymph % (Auto) Jackson % (Auto) Eos % (Auto) Baso % (Auto) Neut # (Auto) Lymph # (Auto) Jackson # (Auto) Eos # (Auto) Baso # (Auto) Sodium Potassium Chloride Carbon Dioxide BUN Creatinine Estimated GFR BUN/Creatinine Ratio Glucose Calcium Troponin I < 0.012 Urine Color Yellow Urine Appearance Clear Urine pH 6.0 Ur Specific Downey 1.010 Urine Protein Negative Urine Glucose (UA) 2+ H Urine Ketones 1+ H Urine Occult Blood Negative Urine Nitrate Positive H Urine Bilirubin Negative Urine Urobilinogen 0.2 Ur Leukocyte Esterase Negative Urine RBC None seen Urine WBC 1-5/hpf Ur Squamous Epith Cells 1-5 /hpf Urine Bacteria Moderate (10-30) H Ur Culture Indicated? Specimen cultured Stl C. cayetanensis PCR Not detected Stool Rotavirus (PCR) Not detected Stool Adenovirus (PCR) Not detected Stool Astrovirus (PCR) Not detected Stool Cryptosporidium PCR Not detected Stl E.coli Shiga Tox PCR Not detected St Sh/Enteroin Ecoli PCR Not detected Stool E coli O157 PCR Not Reportable Stl Enterotoxigenic E PCR Not detected Stool EPEC (PCR) Not detected Stl E. histolytica PCR Not detected Stool Giardia Lamblia PCR Not detected Stool Sapovirus (PCR) Not detected Stl P. shigelloides PCR Not detected St Y.enterocolitica PCR Not detected Stool Vibrio (PCR) Not detected Stl Vibrio cholerae PCR Not detected Stl Enteroaggr Ecoli PCR Not detected Stl Norovirus GI/GII PCR Not detected A. baumannii (PCR) Chlamy pneumoniae PCR Adenovirus (PCR) B.parapertussis DNA PCR Campylobacter (PCR) Not detected Princess albicans (PCR) C. glabrata (PCR) C. krusei (PCR) C. parapsilosis (PCR) C. tropicalis (PCR) C. difficile Tox (PCR) Not detected Coronavirus OC43 (PCR) Coronavirus HKU1 (PCR) Coronavirus 229E (PCR) Coronavirus NL63 (PCR) Enterobacteriac sp PCR E. cloacae complex PCR Enterococcus sp PCR E. coli (PCR) H. influenzae (PCR) Human Metapneumovir PCR Influenza Type A (PCR) Influenza Type B (PCR) Klebsiella oxytoca PCR Klebsiella pneumoniae List. monocytogenes PCR M. pneumoniae (PCR) N. meningitidis (PCR) Parainfluenza 1 (PCR) Parainfluenza 2 (PCR) Parainfluenza 3 (PCR) Parainfluenza 4 (PCR) Proteus species (PCR) RSV (PCR) Entero/Rhino (PCR) Salmonella (PCR) Not detected Serratia marcescens PCR Staphylococcus sp PCR Staph aureus (PCR) mecA-Methicil Res Gene Streptococcus sp PCR Group A Strep (PCR) Strep agalactiae (PCR) Strep pneumoniae (PCR) P. aeruginosa (PCR) Tito/B-Vanco Res Genes KPC-Carbap Res Gene PCR 04/21/18 04/22/18 16:20 05:58 WBC 5.0 RBC 4.25 Hgb 12.2 Hct 37.3 MCV 87.9 MCH 28.8 MCHC 32.8 RDW 13.6 Plt Count 197 Neut % (Auto) 49.3 L D Lymph % (Auto) 38.0 Jackson % (Auto) 8.8 Eos % (Auto) 3.4 Baso % (Auto) 0.5 Neut # (Auto) 2400 Lymph # (Auto) 1900 Jackson # (Auto) 400 Eos # (Auto) 200 Baso # (Auto) 0 Sodium Potassium Chloride Carbon Dioxide BUN Creatinine Estimated GFR BUN/Creatinine Ratio Glucose Calcium Troponin I Urine Color Urine Appearance Urine pH Ur Specific Downey Urine Protein Urine Glucose (UA) Urine Ketones Urine Occult Blood Urine Nitrate Urine Bilirubin Urine Urobilinogen Ur Leukocyte Esterase Urine RBC Urine WBC Ur Squamous Epith Cells Urine Bacteria Ur Culture Indicated? Stl C. cayetanensis PCR Stool Rotavirus (PCR) Stool Adenovirus (PCR) Stool Astrovirus (PCR) Stool Cryptosporidium PCR Stl E.coli Shiga Tox PCR St Sh/Enteroin Ecoli PCR Stool E coli O157 PCR Stl Enterotoxigenic E PCR Stool EPEC (PCR) Stl E. histolytica PCR Stool Giardia Lamblia PCR Stool Sapovirus (PCR) Stl P. shigelloides PCR St Y.enterocolitica PCR Stool Vibrio (PCR) Stl Vibrio cholerae PCR Stl Enteroaggr Ecoli PCR Stl Norovirus GI/GII PCR A. baumannii (PCR) Chlamy pneumoniae PCR Not detected Adenovirus (PCR) Not detected B.parapertussis DNA PCR Not detected Campylobacter (PCR) Princess albicans (PCR) C. glabrata (PCR) C. krusei (PCR) C. parapsilosis (PCR) C. tropicalis (PCR) C. difficile Tox (PCR) Coronavirus OC43 (PCR) Not detected Coronavirus HKU1 (PCR) Not detected Coronavirus 229E (PCR) Not detected Coronavirus NL63 (PCR) Not detected Enterobacteriac sp PCR E. cloacae complex PCR Enterococcus sp PCR E. coli (PCR) H. influenzae (PCR) Human Metapneumovir PCR Not detected Influenza Type A (PCR) Not detected Influenza Type B (PCR) Not detected Klebsiella oxytoca PCR Klebsiella pneumoniae List. monocytogenes PCR M. pneumoniae (PCR) Not detected N. meningitidis (PCR) Parainfluenza 1 (PCR) Not detected Parainfluenza 2 (PCR) Not detected Parainfluenza 3 (PCR) Not detected Parainfluenza 4 (PCR) Not detected Proteus species (PCR) RSV (PCR) Detected H Entero/Rhino (PCR) Not detected Salmonella (PCR) Serratia marcescens PCR Staphylococcus sp PCR Staph aureus (PCR) mecA-Methicil Res Gene Streptococcus sp PCR Group A Strep (PCR) Strep agalactiae (PCR) Strep pneumoniae (PCR) P. aeruginosa (PCR) Tito/B-Vanco Res Genes KPC-Carbap Res Gene PCR Assessment & Plan Plan: Assessment/Plan Narrative: Donald Jules is a 62-year-old morbidly obese female with past medical history significant for hypertension, diastolic heart failure stage I, and hypertension who presented to [facility] for fever, productive cough, dyspnea nausea, vomiting, diarrhea. 1. Acute RSV with possible superimposed bacterial community-acquired pneumonia , present on admission. Active. -Patient presented with fever, productive cough, dyspnea, nausea, vomiting, and diarrhea x 3 days. -Initial WBC was 6.3 with normal procalcitonin and lactic acid. -Chest x-ray demonstrated right basilar opacity. -Respiratory viral PCR positive for RSV. Continue symptom management. -Continue azithromycin 500 mg for 3 days and ceftriaxone daily for 5 days. -Ordered DuoNeb scheduled twice daily and every 4 hr as needed. -May use supplemental oxygen as needed keep sats greater than 92%. 2. Diastolic congestive heart failure stage I, possible acute on chronic, present on admission. Active. -Chest x-ray demonstrates vascular congestion -Initial Troponin within normal limits at less than 0.012. -Previous echocardiogram 06/2016 preserved systolic function with EF 60-65% and diastolic stage I. Patient had Lexiscan on 10/25/2016 and heart catheterization on 01/23/2017 which did not demonstrate any obstructive cardiomyopathy. Ordered repeat echocardiogram. -12 lead EKG is suggestive of inferior infarct with small Q-waves inferiorly, questionable ST depression in V5 and V6 however there are no EKG changes compared with tracing of 08/15/2016. -Patient has been on Lasix 20 mg daily with mild bilateral peripheral edema. She received 1 L of IV fluid emergency department. 3. Diabetes mellitus type 2, insulin using, chronic, present on admission. Active. -Hemoglobin A1c 9.7 %. -Continue gabapentin for diabetic neuropathy. -Continue Lantus 20 units twice daily. Patient previously on Lantus 80 units twice daily outpatient but was being titrated down? -Ordered high-dose correction scale insulin. -Accu-Cheks ACHS. , sliding-scale insulin. -Dietary to consult, patient will need diabetic education. 4. Hypertension, chronic, present on admission. Stable. -Continue lisinopril 40 and metoprolol succinate 100 mg daily. 5. Hyperlipidemia, chronic, present on admission. Presumed stable. -Continue atorvastatin 40 mg daily 6. Osteoarthritis, chronic, present on admission. Stable. -Patient has had a partial knee replacement on the right has chronic pain left -Continue gabapentin 300 mg 3 times daily. -Ordered Tylenol and 1-2 Ethel as needed for mild and severe, respectively. 7. Morbid obesity, chronic, present on admission. Presumed stable. -Initial BMI of 50.6. -Counseled the patient on lifestyle modification including diet and exercise. -Dietary consult as above. Disposition: Quality VTE Deep Vein Thrombosis/Pulmonary Embolism Present on Admission: No
[2018-04-22 06:47] LABS: Procalcitonin 0.05 ng/mL (<0.5)
[2018-04-22] MEDS: FLUoxetine 20 MG CAPSULE PO (08:26)
[2018-04-22] MEDS: TOLTERODINE LA 4 MG PO (08:26)
[2018-04-22] MEDS: ENOXAPARIN 40 MG/0.4 ML SYRINGE SUBCUT (08:26)
[2018-04-22] MEDS: LORATADINE 10 MG TABLET PO (08:27)
[2018-04-22] MEDS: GABAPENTIN 300 MG CAPSULE PO (08:30)
[2018-04-22] MEDS: FUROSEMIDE 20 MG TABLET PO (08:31)
[2018-04-22] MEDS: INSULIN ASPART 100 UNIT/ML INSULN PEN SUBCUT ×2 (08:34→12:27)
[2018-04-22] MEDS: INSULIN GLARGINE 100 UNIT/ML 3ML PEN 20 UNIT SUBCUT (08:34)
[2018-04-22] MEDS: HYDROCODONE/ACET 5/325 TABLET 2 TAB PO (09:30)
[2018-04-22] MEDS: LISINOPRIL 20 MG TABLET 40 MG PO (12:26)
[2018-04-22] MEDS: METOPROLOL ER 50 MG TABLET 100 MG PO (12:36)
--- NOTE | 2018-04-22 14:06 | CM.DPC ---
DCP Discharge Home: Per MD, pt seems to be medically stable and requesting to d/c home today and pt not in any acute needs to pursue Echo here in the hospital and could be followed up with her PCP after discharge if needed. No barriers to discharge identified. Plan: Patient to d/c home today via POV and follow up with her primary clinic at discharge. No SW needs at this time. LIZZY Neves
--- NOTE | 2018-04-22 14:24 | P.DS_ITS ---
History of Present Illness Date Patient Seen: 04/21/18 Chief complaint: COUGHING Narrative: Written by Eduardo BUSTILLOS: Ms Jules this is a 62-year-old morbidly obese female with a history of diabetes , hypertension and CHF who presents to the hospital for acute and fever dyspnea , cough and fever. The patient states that her symptoms began abruptly 3 days ago without significant prodrome symptoms. She describes difficulty breathing, wheezing and a cough that is productive for clear sputum. She had associated nausea, vomiting and diarrhea and complains of orthostatic dizziness and headache. She also reports lower chest and epigastric pressure that is worse with deep inspiration but endorses previous cardiac workup and EKG is suggestive of an inferior MA. Also of note patient underwent cardiac workup in 2016 with an echocardiogram in June, Lexiscan in October and a left heart catheterization in January of that year. Upon arrival in the emergency department patient's initial temperature was 102.9?. Patient was also found to have a pulse oximetry of 90% on air. The patient is also found to be hyperglycemic with a blood sugar 279 on chemistries. The patient states that she has been too sick the last few days to use her insulin indicating that she takes glargine and sliding scale insulin. Discharge Providers Date of admission: 04/20/18 23:57 Primary care physician: Florin Patel MD Consults: 04/21/18 00:28 Consult to Dietitian, Adult Routine Comment: Reason For Exam: Diabetes, Morbid Obesity Consult to Discharge Planning Routine Comment: 04/21/18 00:30 Consult to Respiratory Therapy Evaluate & Treat Comment: Pneumonia, wheezing Physician Instructions: Evaluate and treat Discharge provider: Kandis Villa DO Discharge Date: 04/22/18 Summary Discharge Diagnosis: 1. Acute RSV with less likely superimposed bacterial community-acquired pneumonia, present on admission. Improved. 2. Diastolic congestive heart failure stage I, chronic, present on admission. Presumed stable. 3. Diabetes mellitus type 2, insulin using, chronic, present on admission. Presumed stable. 4. Hypertension, chronic, present on admission. Stable. 5. Hyperlipidemia, chronic, present on admission. Presumed stable. 6. Osteoarthritis, chronic, present on admission. Stable. 7. Morbid obesity, chronic, present on admission. Presumed stable. Hospital Course: Donald Jules is a 62-year-old morbidly obese female with past medical history significant for hypertension, diastolic heart failure stage I, and hypertension who presented to [facility] for fever, productive cough, dyspnea nausea, vomiting, diarrhea. 1. Acute RSV with less likely superimposed bacterial community-acquired pneumonia, present on admission. Improved. -Patient presented with fever, productive cough, dyspnea, nausea, vomiting, and diarrhea x 3 days. -No leukocytosis with normal procalcitonin and lactic acid. -Chest x-ray demonstrated right basilar opacity. -Respiratory viral PCR positive for RSV. Continue symptom management. -Ordered DuoNeb scheduled twice daily and every 4 hr as needed. -May use supplemental oxygen as needed keep sats greater than 92%. -Started on azithromycin 500 mg for 3 days (discharged with last to complete course) and received ceftriaxone x 2 doses. 2. Diastolic congestive heart failure stage I, chronic, present on admission. Presumed stable. -Chest x-ray demonstrated vascular congestion -Initial Troponin within normal limits at less than 0.012. -Previous echocardiogram 06/2016 preserved systolic function with EF 60-65% and diastolic stage I. Patient had Lexiscan on 10/25/2016 and heart catheterization on 01/23/2017 which did not demonstrate any obstructive cardiomyopathy. Ordered repeat echocardiogram. -12 lead EKG is suggestive of inferior infarct with small Q-waves inferiorly, questionable ST depression in V5 and V6 however there are no EKG changes compared with tracing of 08/15/2016. -Patient has been on Lasix 20 mg daily and appears dehydrated with only trace pedal edema bilateral ankles. She received 1 L of IV fluid emergency department. -Ordered echocardiogram to delineate status of CHF, however, patient significantly improved with hydration and minimal treatment therefore she was discharged. Could consider pursuing echocardiogram outpatient. 3. Diabetes mellitus type 2, insulin using, chronic, present on admission. Presumed stable. -Hemoglobin A1c 9.7 %. -Continued gabapentin for diabetic neuropathy. -Continue Lantus 20 units twice daily. Patient previously on Lantus 80 units twice daily outpatient but was being titrated down? Recommended addressing outpatient with her PCP on 04/29/2018. -Ordered high-dose correction scale insulin. -Accu-Cheks ACHS. 4. Hypertension, chronic, present on admission. Stable. -Continued lisinopril 40 and metoprolol succinate 100 mg daily. 5. Hyperlipidemia, chronic, present on admission. Presumed stable. -Continued atorvastatin 40 mg daily 6. Osteoarthritis, chronic, present on admission. Stable. -Patient has had a partial knee replacement on the right has chronic pain left -Continued gabapentin 300 mg 3 times daily. -Ordered Tylenol and 1-2 [place] as needed for mild and severe, respectively. 7. Morbid obesity, chronic, present on admission. Presumed stable. -Initial BMI of 50.6. -Counseled the patient on lifestyle modification including diet and exercise. Status at Discharge Functional status at discharge: independent ambulation Overall status at discharge: patient is progressing back to baseline Exam Vital Signs (past 8 hours): - 04/22/18 08:00 04/22/18 12:00 04/22/18 12:45 Temperature 97.9 F Pulse Rate 60 66 Respiratory Rate 16 20 Blood Pressure 114/56 L 126/63 Pulse Oximetry 96 94 Fraction of Inspired Oxygen 21 Oxygen Delivery Method Room Air Oxygen Flow Rate 0 Narrative Exam Narrative: General: Middle-aged female sitting in bed and in no acute distress, well- developed, well-nourished, appropriately interactive. HEENT: Normocephalic, atraumatic. External ears without defect. Pupils equal, round, and reactive to light and accommodation. Anicteric sclerae, moist conjunctivae, and no lid lag. Oropharynx free of erythema and cobble stoning with moist mucosa. Neck: Supple with full range of motion. No jugular venous distension.No lymphadenopathy or thyromegaly. Cardiovascular: Regular rate and rhythm without murmurs, rubs, or gallops appreciated Pulmonary: Clear to auscultation bilaterally with scattered wheezes. No crackles or rhonchi. Normal respiratory effort with no use of accessory muscles. Abdomen: Soft, obese, bowel sounds present, nontender, nondistended. No hepatosplenomegaly or masses appreciated. Extremities: No clubbing or cyanosis. Bipedal edema. Skin: Normal temperature, turgor, and texture; no rash, ulcers, or subcutaneous nodules appreciated. Neurological: Cranial nerves grossly intact. Normal muscle strength, tone, and bulk. Reflexes, coordination, and sensory function within normal limits. No known gait impairment. Psychiatric: Normal mood and affect. Alert and oriented to person, place, and time. Objective Labs Result Diagrams: 04/22/18 05:58 04/22/18 05:58 Labs: Laboratory Results - last 24 hr 04/20/18 04/21/18 04/21/18 21:18 10:30 15:59 WBC RBC Hgb Hct MCV MCH MCHC RDW Plt Count Neut % (Auto) Lymph % (Auto) [place] % (Auto) Eos % (Auto) Baso % (Auto) Neut # (Auto) Lymph # (Auto) [place] # (Auto) Eos # (Auto) Baso # (Auto) Sodium Potassium Chloride Carbon Dioxide BUN Creatinine Estimated GFR BUN/Creatinine Ratio Glucose Calcium Magnesium Procalcitonin Urine Color Yellow Urine Appearance Clear Urine pH 6.0 Ur Specific [place] 1.010 Urine Protein Negative Urine Glucose (UA) 2+ H Urine Ketones 1+ H Urine Occult Blood Negative Urine Nitrate Positive H Urine Bilirubin Negative Urine Urobilinogen 0.2 Ur Leukocyte Esterase Negative Urine RBC None seen Urine WBC 1-5/hpf Ur Squamous Epith Cells 1-5 /hpf Urine Bacteria Moderate (10-30) H Ur Culture Indicated? Specimen cultured Stl C. cayetanensis PCR Not detected Stool Rotavirus (PCR) Not detected Stool Adenovirus (PCR) Not detected Stool Astrovirus (PCR) Not detected Stool Cryptosporidium PCR Not detected Stl E.coli Shiga Tox PCR Not detected St Sh/Enteroin Ecoli PCR Not detected Stool E coli O157 PCR Not Reportable Stl Enterotoxigenic E PCR Not detected Stool EPEC (PCR) Not detected Stl E. histolytica PCR Not detected Stool Giardia Lamblia PCR Not detected Stool Sapovirus (PCR) Not detected Stl P. shigelloides PCR Not detected St Y.enterocolitica PCR Not detected Stool Vibrio (PCR) Not detected Stl Vibrio cholerae PCR Not detected Stl Enteroaggr Ecoli PCR Not detected Stl Norovirus GI/GII PCR Not detected A. baumannii (PCR) Not detected Chlamy pneumoniae PCR Adenovirus (PCR) B.parapertussis DNA PCR Campylobacter (PCR) Not detected Princess albicans (PCR) Not detected C. glabrata (PCR) Not detected C. krusei (PCR) Not detected C. parapsilosis (PCR) Not detected C. tropicalis (PCR) Not detected C. difficile Tox (PCR) Not detected Coronavirus OC43 (PCR) Coronavirus HKU1 (PCR) Coronavirus 229E (PCR) Coronavirus NL63 (PCR) Enterobacteriac sp PCR Not detected E. cloacae complex PCR Not detected Enterococcus sp PCR Not detected E. coli (PCR) Not detected H. influenzae (PCR) Not detected Human Metapneumovir PCR Influenza Type A (PCR) Influenza Type B (PCR) Klebsiella oxytoca PCR Not detected Klebsiella pneumoniae Not detected List. monocytogenes PCR Not detected M. pneumoniae (PCR) N. meningitidis (PCR) Not detected Parainfluenza 1 (PCR) Parainfluenza 2 (PCR) Parainfluenza 3 (PCR) Parainfluenza 4 (PCR) Proteus species (PCR) Not detected RSV (PCR) Entero/Rhino (PCR) Salmonella (PCR) Not detected Serratia marcescens PCR Not detected Staphylococcus sp PCR Detected H Staph aureus (PCR) Not detected mecA-Methicil Res Gene Detected H Streptococcus sp PCR Not detected Group A Strep (PCR) Not detected Strep agalactiae (PCR) Not detected Strep pneumoniae (PCR) Not detected P. aeruginosa (PCR) Not detected Tito/B-Vanco Res Genes TNP KPC-Carbap Res Gene PCR TNP 04/21/18 04/22/18 04/22/18 16:20 05:58 05:58 WBC 5.0 RBC 4.25 Hgb 12.2 Hct 37.3 MCV 87.9 MCH 28.8 MCHC 32.8 RDW 13.6 Plt Count 197 Neut % (Auto) 49.3 L D Lymph % (Auto) 38.0 [place] % (Auto) 8.8 Eos % (Auto) 3.4 Baso % (Auto) 0.5 Neut # (Auto) 2400 Lymph # (Auto) 1900 [place] # (Auto) 400 Eos # (Auto) 200 Baso # (Auto) 0 Sodium 135 L Potassium 3.5 Chloride 100 Carbon Dioxide 26 BUN 8 Creatinine 0.80 Estimated GFR > 60.0 BUN/Creatinine Ratio 10.0 Glucose 320 H Calcium 7.6 L Magnesium 1.8 Procalcitonin Urine Color Urine Appearance Urine pH Ur Specific [place] Urine Protein Urine Glucose (UA) Urine Ketones Urine Occult Blood Urine Nitrate Urine Bilirubin Urine Urobilinogen Ur Leukocyte Esterase Urine RBC Urine WBC Ur Squamous Epith Cells Urine Bacteria Ur Culture Indicated? Stl C. cayetanensis PCR Stool Rotavirus (PCR) Stool Adenovirus (PCR) Stool Astrovirus (PCR) Stool Cryptosporidium PCR Stl E.coli Shiga Tox PCR St Sh/Enteroin Ecoli PCR Stool E coli O157 PCR Stl Enterotoxigenic E PCR Stool EPEC (PCR) Stl E. histolytica PCR Stool Giardia Lamblia PCR Stool Sapovirus (PCR) Stl P. shigelloides PCR St Y.enterocolitica PCR Stool Vibrio (PCR) Stl Vibrio cholerae PCR Stl Enteroaggr Ecoli PCR Stl Norovirus GI/GII PCR A. baumannii (PCR) Chlamy pneumoniae PCR Not detected Adenovirus (PCR) Not detected B.parapertussis DNA PCR Not detected Campylobacter (PCR) Princess albicans (PCR) C. glabrata (PCR) C. krusei (PCR) C. parapsilosis (PCR) C. tropicalis (PCR) C. difficile Tox (PCR) Coronavirus OC43 (PCR) Not detected Coronavirus HKU1 (PCR) Not detected Coronavirus 229E (PCR) Not detected Coronavirus NL63 (PCR) Not detected Enterobacteriac sp PCR E. cloacae complex PCR Enterococcus sp PCR E. coli (PCR) H. influenzae (PCR) Human Metapneumovir PCR Not detected Influenza Type A (PCR) Not detected Influenza Type B (PCR) Not detected Klebsiella oxytoca PCR Klebsiella pneumoniae List. monocytogenes PCR M. pneumoniae (PCR) Not detected N. meningitidis (PCR) Parainfluenza 1 (PCR) Not detected Parainfluenza 2 (PCR) Not detected Parainfluenza 3 (PCR) Not detected Parainfluenza 4 (PCR) Not detected Proteus species (PCR) RSV (PCR) Detected H Entero/Rhino (PCR) Not detected Salmonella (PCR) Serratia marcescens PCR Staphylococcus sp PCR Staph aureus (PCR) mecA-Methicil Res Gene Streptococcus sp PCR Group A Strep (PCR) Strep agalactiae (PCR) Strep pneumoniae (PCR) P. aeruginosa (PCR) Tito/B-Vanco Res Genes KPC-Carbap Res Gene PCR 04/22/18 05:58 WBC RBC Hgb Hct MCV MCH MCHC RDW Plt Count Neut % (Auto) Lymph % (Auto) [place] % (Auto) Eos % (Auto) Baso % (Auto) Neut # (Auto) Lymph # (Auto) [place] # (Auto) Eos # (Auto) Baso # (Auto) Sodium Potassium Chloride Carbon Dioxide BUN Creatinine Estimated GFR BUN/Creatinine Ratio Glucose Calcium Magnesium Procalcitonin 0.05 Urine Color Urine Appearance Urine pH Ur Specific [place] Urine Protein Urine Glucose (UA) Urine Ketones Urine Occult Blood Urine Nitrate Urine Bilirubin Urine Urobilinogen Ur Leukocyte Esterase Urine RBC Urine WBC Ur Squamous Epith Cells Urine Bacteria Ur Culture Indicated? Stl C. cayetanensis PCR Stool Rotavirus (PCR) Stool Adenovirus (PCR) Stool Astrovirus (PCR) Stool Cryptosporidium PCR Stl E.coli Shiga Tox PCR St Sh/Enteroin Ecoli PCR Stool E coli O157 PCR Stl Enterotoxigenic E PCR Stool EPEC (PCR) Stl E. histolytica PCR Stool Giardia Lamblia PCR Stool Sapovirus (PCR) Stl P. shigelloides PCR St Y.enterocolitica PCR Stool Vibrio (PCR) Stl Vibrio cholerae PCR Stl Enteroaggr Ecoli PCR Stl Norovirus GI/GII PCR A. baumannii (PCR) Chlamy pneumoniae PCR Adenovirus (PCR) B.parapertussis DNA PCR Campylobacter (PCR) Princess albicans (PCR) C. glabrata (PCR) C. krusei (PCR) C. parapsilosis (PCR) C. tropicalis (PCR) C. difficile Tox (PCR) Coronavirus OC43 (PCR) Coronavirus HKU1 (PCR) Coronavirus 229E (PCR) Coronavirus NL63 (PCR) Enterobacteriac sp PCR E. cloacae complex PCR Enterococcus sp PCR E. coli (PCR) H. influenzae (PCR) Human Metapneumovir PCR Influenza Type A (PCR) Influenza Type B (PCR) Klebsiella oxytoca PCR Klebsiella pneumoniae List. monocytogenes PCR M. pneumoniae (PCR) N. meningitidis (PCR) Parainfluenza 1 (PCR) Parainfluenza 2 (PCR) Parainfluenza 3 (PCR) Parainfluenza 4 (PCR) Proteus species (PCR) RSV (PCR) Entero/Rhino (PCR) Salmonella (PCR) Serratia marcescens PCR Staphylococcus sp PCR Staph aureus (PCR) mecA-Methicil Res Gene Streptococcus sp PCR Group A Strep (PCR) Strep agalactiae (PCR) Strep pneumoniae (PCR) P. aeruginosa (PCR) Tito/B-Vanco Res Genes KPC-Carbap Res Gene PCR XR CHEST 1V INDICATIONS: shortness of breath/fever TECHNIQUE: One view of the chest was acquired. COMPARISON: [facility], CHEST 2 VIEW, 05/20/2016, 16:21. [facility], CHEST 2 VIEW, 04/19/2016, 12:03. FINDINGS: Surgical changes and devices: None. Lungs and pleura: No pleural effusions or pneumothorax. Mild increased pulmonary vascularity. Minimal increased right basilar opacity. Mediastinum: Mediastinal contours appear normal. Heart size is normal. Bones and chest wall: No suspicious bony lesions. Overlying soft tissues appear unremarkable. IMPRESSION: Mild increased vascularity with minimal increased right basilar opacity. The latter could be represent focal edema or developing airspace disease such as pneumonia and/or atelectasis. Dictated by: Dianne Dominguez M.D. on 04/20/2018 at 21:36 Approved by: Dianne Dominguez M.D. on 04/20/2018 at 21:37 Discharge Plan Discharge Plan Patient Disposition: Home Discharge comment: You are being discharged home. Please keep your scheduled appointment with your PCP on 04/29/2018. You will need an x-ray in 6 weeks to ensure that your pneumonia has cleared. Please discuss your insulin including Lantus and NovoLog. You have a virus called RSV in which there is no treatment other than symptom management. Please try to stay well hydrated and get plenty of rest. Please use good hand hygiene. You have 1 dose of azithromycin 500 mg to take tomorrow for complete treatment of possible bacterial pneumonia. Discharge Med Rec/Prescriptions Prescriptions: New azithromycin 500 mg tablet 500 mg PO DAILY Qty: 1 RF: 0 Continue fluoxetine 20 MG capsule 20 mg PO Q DAY Qty: 90 RF: 1 atorvastatin [Lipitor] 40 MG tablet 1 tab OR HS Qty: 90 RF: 0 Glucose: Test Strips EXT BID Qty: 60 RF: 11 Glucose: Home Monitoring Kit BID Qty: 1 RF: 0 insulin glargine [Lantus U-100 Insulin] 100 UNIT/1 ML solution SQ SEE INSTRUCTIONS Qty: 6 RF: 11 fluticasone 16 GM spray,suspension 1 spray Intranasal BID Qty: 16 RF: 3 gabapentin [Neurontin] 300 MG capsule 300 mg PO TID Qty: 270 RF: 3 furosemide [Lasix] 20 MG tablet 20 mg PO QDAY Qty: 180 RF: 3 omeprazole 40 mg capsule,delayed release(DR/EC) 40 mg PO QDAY Qty: 90 RF: 0 metoprolol succinate 100 mg tablet extended release 24 hr 100 mg PO DAILY Qty: 180 RF: 0 insulin aspart U-100 [Novolog U-100 Insulin aspart] 100 unit/mL solution 32 unit SUBCUT BID Qty: 3 RF: 1 meloxicam [Mobic] 7.5 mg tablet 7.5 mg PO BIDCC Qty: 60 RF: 3 lisinopril 40 mg tablet 40 mg PO QDAY Qty: 90 RF: 0 Syringes: Ultra Fine Insulin Syringe w/Needle .Route .MEDSUPPLY Qty: 100 RF: 0 oxycodone-acetaminophen 5-325 mg tablet 1 tab PO Q6HP PRN (Reason: pain) Qty: 30 RF: 0 tolterodine 4 mg capsule,extended release 24hr 4 mg PO DAILY Qty: 30 RF: 0 nystatin 100,000 unit/gram ointment 1 applictn TOP BID Qty: 15 RF: 0 metformin [Glucophage] 1,000 mg tablet 1,000 mg PO BIDCC Qty: 60 RF: 0 loratadine [Claritin] 10 mg tablet 10 mg PO DAILY Qty: 90 RF: 3 emollient combination no.72 [Eucerin Intensive Repair] lotion 1 each TOP BID Qty: 250 RF: 3 mupirocin 2 % ointment 1 applictn TOP BID Qty: 30 RF: 0 Provider Discharge Instructions Diet: Carb-consistent/Diabetic, Low-sodium and Low-cholesterol Activity: Activity as tolerated Skin/Wound/Dressing Care Report to your healthcare provider any signs of infection, such as:: chills, fever Visit Report/Discharge Packet Instructions: DI for Respiratory Syncytial Virus -- Adults Discharge Data Primary Care Provider: Florin Patel Attending Provider: Eduardo Sims Admit Date/Time: 04/20/18 23:57 Quality VTE Deep Vein Thrombosis/Pulmonary Embolism Present on Admission: No
[2018-04-23 14:12] LABS: Anti-Streptolysin O Antibody < 50 IU/mL (< 200)
== END 2018-04-22 17:10 | disposition home or self-care (01) | DRG 194 ==
LOC: ED 23:52 → AC 23:57
PROVIDERS: Internal Medicine; Admitting Provider Nurse Practitioner Adult Health; Emergency Provider Emergency Medicine; PCP Student in an Organized Health Care Education/Training Program; Visit Provider Nurse Practitioner Adult Health
DX: J12.1 Respiratory syncytial virus pneumonia (principal); Z68.43 Body mass index [BMI] 50.0-59.9, adult; I50.32 Chronic diastolic (congestive) heart failure; E11.65 Type 2 diabetes mellitus with hyperglycemia; E11.40 Type 2 diabetes mellitus with diabetic neuropathy, unspecified; I11.0 Hypertensive heart disease with heart failure; E66.01 Morbid (severe) obesity due to excess calories; Z79.4 Long term (current) use of insulin; E78.5 Hyperlipidemia, unspecified; M19.90 Unspecified osteoarthritis, unspecified site
CPT/HCPCS: 36415; 36591; 71045; 80048; 80053; 81001; 82009; 82962; 83036; 83605; 83690; 83735; 83880; 84145; 84484; 85025; 86060; 87040; 87077; 87086; 87147; 87150; 87205; 87400; 87449; 87507; 87633; 93005; 93010; 94640; 94762; 96361; 96365; 96366; 99284; 99285; J1650; J1956

== ENCOUNTER → 2018-04-29 13:59 | Outpatient (CLI) | payer OTHER, SELFPAY ==
[2018-04-21 00:54] VITALS: BMI 51.5
[2018-04-29 15:27] LABS: Microalbumi Creatinin Ratio Ur 56.2 ug/mg CR (<30); Microalbumin Urine Random 8.5 mg/dL (0-1.6)
== END ==
PROVIDERS: PCP Student in an Organized Health Care Education/Training Program; Visit Provider Student in an Organized Health Care Education/Training Program
DX: E11.610 Type 2 diabetes mellitus with diabetic neuropathic arthropathy (principal); Z79.4 Long term (current) use of insulin
CPT/HCPCS: 82043; 82570

== ENCOUNTER 2018-06-16 12:11 | Day surgery (SDC) | payer OTHER, SELFPAY ==
[2018-04-21 00:54] VITALS: BMI 51.5
[2018-06-16] VITALS (8 sets, daily range): BP systolic 132–153; BP diastolic 54–91; PULSE 57–84; RESP 11–20; TEMP 36.3–37; O2SAT 95–97; BMI 51.1
[2018-06-16] MEDS: SODIUM CHLORIDE 0.9% 1,000 ML 150 ML IV (13:47)
--- NOTE | 2018-06-16 14:06 | PM.HP.1 ---
History of Present Illness Date Patient Seen: 06/16/18 Time Patient Seen: 14:07 Chief complaint: [id number] SCREENING COLONOSCOPY Narrative: Pleasant 63-year-old lady who presents for her 1st screening colonoscopy. She denies any new problems or symptoms related to the function of her GI tract. She admits that her diabetes is poorly controlled. She does not have any family history of colon cancer or other GI malignancy. She denies any bright red blood per rectum or unexplained weight loss. She denies any constitutional symptoms. She reports she needs a colonoscopy as part of a health maintenance program. Patient History Medical History Congestive heart failure (Acute) Heart disease (Acute) History of hysterectomy (Acute) Osteoarthritis (Acute) Diabetes mellitus (Chronic) Hypertension (Chronic) Peripheral neuropathy (Chronic) Sleep apnea (Chronic) Surgical History History of cholecystectomy (Resolved) History of knee replacement (Resolved 01/2015) Family History Mother Alcohol abuse Skin cancer Father Heart attack Social History household members: family and children Smoking Status: Never smoker Family & Social History Family History Mother Alcohol abuse Skin cancer Father Heart attack Social History: household members family,children Tobacco & Substance use: Smoking Status Never smoker alcohol intake frequency 0-2 drinks per day Substance Use Type does not use Meds Home Medications Medication Instructions Recorded Confirmed Type fluticasone 1 spray INTRANASAL BID #16 gm 06/09/17 05/12/18 Rx omeprazole 40 mg capsule,delayed 40 mg PO QDAY #90 cap 08/11/17 05/12/18 Rx release emollient combination no.72 lotion 1 each TOP BID #250 ml 09/29/17 05/12/18 Rx loratadine 10 mg tablet 10 mg PO DAILY #90 tab 09/29/17 06/16/18 Rx mupirocin 2 % topical ointment 1 applictn TOP BID #30 gram 02/17/18 05/12/18 Rx nystatin 100,000 unit/gram topical 1 applictn TOP BID #15 gram 04/03/18 06/16/18 Rx ointment Glucose: Home Monitoring Kit #1 device 04/29/18 05/12/18 Rx Glucose: Test Strips #100 each 04/29/18 05/12/18 Rx Syringes: Ultra Fine Insulin #100 each 04/29/18 05/12/18 Rx Syringe w/Needle atorvastatin 40 mg tablet 40 mg PO HS #90 tab 04/29/18 06/16/18 Rx furosemide 20 mg tablet 20 mg PO QDAY #90 tab 04/29/18 06/16/18 Rx insulin aspart U- 100 100 unit/mL 30 unit SUBCUT QAC #3 vial 04/29/18 06/16/18 Rx subcutaneous solution lisinopril 40 mg tablet 40 mg PO QDAY #90 tab 04/29/18 06/16/18 Rx meloxicam 7.5 mg tablet 7.5 mg PO BIDCC #180 tab 04/29/18 06/16/18 Rx metoprolol succinate ER 200 mg 200 mg PO DAILY #90 tab 04/29/18 06/16/18 Rx tablet,extended release 24 hr oxycodone-acetaminophen 5 mg-325 1 tab PO Q6H PRN #60 tab 04/29/18 06/16/18 Rx mg tablet tolterodine ER 4 mg 4 mg PO DAILY #90 cap 04/29/18 06/16/18 Rx capsule,extended release 24 hr metformin 1,000 mg tablet 1,000 mg PO BIDCC #180 tab 05/06/18 06/16/18 Rx gabapentin 300 mg capsule 300 mg PO TID #270 cap 05/26/18 06/16/18 Rx insulin glargine (U- 100) 100 80 unit SUBCUT BID #50 ml 06/04/18 06/16/18 Rx unit/mL subcutaneous solution Allergies Allergy/AdvReac Type Severity Reaction Status Date / Time No Known Drug Allergies Allergy Verified 05/12/18 15:44 Review of Systems Review of Systems All systems reviewed & are unremarkable except as noted in HPI and below Exam Vital Signs (past 8 hours): - 06/16/18 13:24 Temperature 97.4 F L Pulse Rate 60 Respiratory Rate 20 Blood Pressure 149/81 H Pulse Oximetry 95 Oxygen Delivery Method Room Air Narrative Exam Narrative: Pleasant lady in no obvious distress. She is morbidly obese with a BMI 51.2 HEENT: Normocephalic and atraumatic, pupils equal round reactive to light accommodation with anicteric sclera Lungs: Clear to auscultation bilaterally Heart: Regular rate and rhythm without murmur rub or gallop Abdomen: Soft, nontender, active bowel sounds. Extremities: Warm and well perfused without edema Assessment & Plan Assessment & Plan narrative: Pleasant lady with significant underlying health problems making her at the very least and ASA 3. Her diabetes is very poorly controlled and was greater than 300 today at the time of admission even after having used 80 units of Lantus. I have discussed the risks and benefits of colonoscopy with her today. She understands that she has a greater than average risk of complications and greater than average risk of poor outcome if any complications should occur. Even considering all of these things, she has expressed a willingness to complete the procedure today because she has already completed the prep.
[2018-06-16] MEDS: MIDAZOLAM 5 MG/5 ML VIAL IV (14:20)
[2018-06-16] MEDS: fentaNYL 250 MCG/5 ML INJ IV (14:21)
--- NOTE | 2018-06-16 14:44 | P.OP_ITS ---
Operative Date/Time/Diagnoses Date of procedure: 06/16/18 Time of procedure: 14:41 Pre-op diagnosis: Screening colonoscopy Post-op diagnosis: same Procedure & Clinicians Procedure: colonoscopy to the cecum with polypectomy x1 Same procedure as scheduled: Yes Indications: no prior colonoscopy Surgeon: Deneen Villareal Click Yes if Unassisted: Yes Anesthesia Type: Sedation ( Versed 6 mg; fentanyl 200 mcg) Operative Notes Findings: 1. Very poor prep 2. A single 3 mm pedunculated polyp just distal to the cecum. This was removed with snare and cautery. We were not able to retain the polyp due to the large amount of matter within the colon. It repeatedly clogged the scope and we were not able to separate the polyp material from the other solid matter. 3. minimal diverticulosis limited to the sigmoid region 4. grade 2 internal hemorrhoids Closure Type: not applicable Specimen(s): none sent Procedure in detail: After obtaining informed consent, the patient was brought to the GI suite and placed in the left lateral decubitus position on the examination table. After placement of appropriate monitors, the patient was given incremental doses of Versed and Fentanyl until an appropriate level of sedation was achieved. A time out was held per SCOAP protocol. A digital rectal examination was performed and did not reveal any masses or obstructing lesions. The colonoscope was gently passed into the patient's anus and the entire colon navigated to the level of the cecum with minimal d ifficulty. Once in the cecum, the scope was withdrawn being sure to go before and beyond all mucosal folds and prominences and get an excellent examination. The findings are noted above. At the level of the rectal vault, the scope was retroflexed and the internal anal canal was examined. The scope was straightened and air aspirated from the colon. The instrument was removed from the patient's body and the procedure was concluded. The patient was allowed to awaken from sedation without difficulty and taken to the post-anesthesia care unit in good condition. total sedation time was 28 min total withdrawal time was 16 min Complications: other ( unable to retain polyp) Condition: stable Disposition: PACU Plan for aftercare: 1. Discharge to home 2. Plan to repeat colonoscopy in 3 years with stacked preps.
[2018-06-16] MEDS: INSULIN REGULAR 100 UNIT/ML 3 ML VIAL SUBCUT (15:01)
--- NOTE | 2018-06-16 15:12 | SUR.PHASEI ---
dr gleason notified about blodd sugar od 253, 5 units regular insulin given, will keep pt 1 hour and recheck per her instructions. to opd.
--- NOTE | 2018-06-16 15:27 | SUR.PHASEII ---
Pt brought to opd for observation eating ice and call germain in hand.
--- NOTE | 2018-06-16 16:12 | SUR.PHASEII ---
Dr Villareal called, informed of cbg, pt ok to leave, assisted pt to dress.
--- NOTE | 2018-06-16 16:17 | SUR.PHASEII ---
Pt left when ready and left in stable condition.
== END 2018-06-16 16:27 ==
LOC: ENDO 12:12
PROVIDERS: PCP Student in an Organized Health Care Education/Training Program; Visit Provider Surgery
PROC: 0DJD8ZZ Inspection of Lower Intestinal Tract, Via Natural or Artificial Opening Endoscopic (ICD-10-PCS; CPT 45378; principal; 2018-06-16 16:00)
DX: Z12.11 Encounter for screening for malignant neoplasm of colon (principal); K57.30 Diverticulosis of large intestine without perforation or abscess without bleeding; K64.1 Second degree hemorrhoids; E11.9 Type 2 diabetes mellitus without complications; I50.9 Heart failure, unspecified; I10 Essential (primary) hypertension; G62.9 Polyneuropathy, unspecified; G47.30 Sleep apnea, unspecified; Z79.4 Long term (current) use of insulin
CPT/HCPCS: 45385; 99152; 99153; J2250; J3010

== ENCOUNTER → 2018-07-28 14:40 | Outpatient (CLI) | payer OTHER, SELFPAY ==
[2018-04-21 00:54] VITALS: BMI 51.5
[2018-07-28 17:39] LABS: Appearance Urine UA SL CLOUDY; Bilirubin Urine UA NEGATIVE (NEGATIVE); Color Urine UA YELLOW; Glucose Urine UA NEGATIVE (Negative); Ketones Urine UA TRACE (NEGATIVE); Leukocyte Esterase Urine UA 2+ (NEGATIVE); Nitrite Urine UA NEGATIVE (Negative); Occult Blood Urine UA TRACE-LYSED (Negative); Protein Urine UA 2+ (Negative); Urobilinogen Urine UA 0.2 E.U./dL (0.2); pH Urine UA 5.5 (4.5-8.0)
[2018-07-28 17:45] LABS: Bacteria Urine Few (2-10); Culture Indicated Urine Specimen Cultured; RBC Urine 0-1/HPF (0-5/HPF); Squamous Epithelial Cell Urine 0-1 /HPF (0-5/HPF); WBC Urine 10-30/HPF (0-5/HPF)
[2018-07-28 19:10] LABS: BUN Creatinine Ratio 13.8 (6-22); Blood Urea Nitrogen 11 mg/dL (7-17); Calcium 8.4 mg/dL (8.4-10.2); Carbon Dioxide 26 mmol/L (22-32); Chloride 101 mmol/L (98-107); Cholesterol 138 mg/dL (140-199); Estimated Glomerular Filt Rate > 60.0 mL/min (>60); Glucose 47 mg/dL (80-110); HDL Cholesterol 33 mg/dL (40-60); HEMOLYSIS < 15 (0-50); LDL Cholesterol Calculated 27 mg/dL (<100); Potassium 4.1 mmol/L (3.4-5.1); Sodium 138 mmol/L (137-145); Triglycerides 391 mg/dL (35-150)
[2018-07-28 19:50] LABS: Hemoglobin A1C% w Est Avg Glu 7.9 % (4.0-6.0)
[2018-07-28 20:04] LABS: Creatinine Urine Random 254.1 mg/dL
[2018-07-28 20:21] LABS: Microalbumi Creatinin Ratio Ur 99.9 ug/mg CR (<30); Microalbumin Urine Random 25.4 mg/dL (0-1.6)
[2018-07-28 20:51] LABS: Vitamin D 25 Hydroxy (D3) < 12.8 ng/mL (30.0-100.0)
== END ==
PROVIDERS: PCP Student in an Organized Health Care Education/Training Program; Visit Provider Student in an Organized Health Care Education/Training Program
DX: E55.9 Vitamin D deficiency, unspecified (principal); E11.610 Type 2 diabetes mellitus with diabetic neuropathic arthropathy; E11.69 Type 2 diabetes mellitus with other specified complication; E66.01 Morbid (severe) obesity due to excess calories; E78.5 Hyperlipidemia, unspecified; I10 Essential (primary) hypertension; E11.21 Type 2 diabetes mellitus with diabetic nephropathy; R30.0 Dysuria; Z68.43 Body mass index [BMI] 50.0-59.9, adult; Z79.4 Long term (current) use of insulin
CPT/HCPCS: 36415; 80048; 80061; 81001; 82043; 82306; 82570; 83036; 87077; 87086; 87186

== ENCOUNTER → 2018-09-11 13:52 | Outpatient (CLI) | payer OTHER, SELFPAY ==
[2018-04-21 00:54] VITALS: BMI 51.5
--- NOTE | 2018-09-11 | DI.MG.S_ITS ---
BILATERAL DIGITAL SCREENING MAMMOGRAM 3D/2D WITH CAD: 09/11/2018 CLINICAL: Routine screening. Comparison is made to exams dated: 05/13/2017 mammogram, 04/22/2016 mammogram - [facility], and 06/05/2009 mammogram - [facility]. The tissue of both breasts is heterogeneously dense. This may lower the sensitivity of mammography. Current study was also evaluated with a Computer Aided Detection (CAD) system. No significant masses, calcifications, or other findings are seen in either breast. There has been no significant interval change. IMPRESSION: NEGATIVE There is no mammographic evidence of malignancy. A 1 year screening mammogram is recommended. This exam was interpreted at Station ID: [id number]. NOTE: For mammograms, a report in lay terms will be sent to the patient. Approximately 15% of breast malignancies will not be visualized mammographically. In the management of a palpable breast mass, a negative mammogram must not discourage biopsy of a clinically suspicious lesion. Electronically Signed By: Agustin mark/jena:09/14/2018 16:36:44 letter sent: Normal Exam ACR BI-RADS Category 1: Negative [id number]
== END ==
PROVIDERS: PCP Student in an Organized Health Care Education/Training Program; Visit Provider Student in an Organized Health Care Education/Training Program
DX: Z12.31 Encounter for screening mammogram for malignant neoplasm of breast (principal)
CPT/HCPCS: 77063; 77067

== ENCOUNTER → 2018-10-19 11:53 | Outpatient (CLI) | payer OTHER, SELFPAY ==
[2018-04-21 00:54] VITALS: BMI 51.5
== END ==
PROVIDERS: PCP Student in an Organized Health Care Education/Training Program; Visit Provider Registered Nurse
DX: L02.416 Cutaneous abscess of left lower limb (principal)
CPT/HCPCS: 87070; 87077; 87147; 87185; 87186; 87205

== ENCOUNTER 2018-11-04 11:25 | Emergency (ER) | payer OTHER, SELFPAY ==
[2018-04-21 00:54] VITALS: BMI 51.5
[2018-11-04 11:30] VITALS: BP 230/92; PULSE 77; RESP 16; TEMP 36.7; O2SAT 97; BMI 51.3
--- NOTE | 2018-11-04 11:37 | DI.RAD.S_ITS ---
PROCEDURE: XR RIBS LT MIN 3V W CXR1V INDICATIONS: Rib pain while pushing laundry bins TECHNIQUE: 2 views of the left ribs were acquired, along with a single view chest. COMPARISON: None. FINDINGS: Surgical changes and devices: None. Bones and chest wall: No fractures or dislocations. No suspicious bony lesions. Overlying soft tissues appear unremarkable. Lungs and pleura: No pleural effusions or pneumothorax. Lungs appear clear. Mediastinum: Mediastinal contours appear normal. Heart size is normal. IMPRESSION: No displaced rib fracture Dictated by: Farida Cooper MD, PhD on 11/04/2018 at 12:19 Approved by: Farida Cooper MD, PhD on 11/04/2018 at 12:24
--- NOTE | 2018-11-04 11:38 | ED.CHESTPAIN ---
HPI - Chest Pain <Bertha MejiaTRESSA - Last Filed: 11/04/18 15:59> General Chief Complaint: Chest Pain Stated Complaint: L rib pain Time Seen by Provider: 11/04/18 11:27 Source: patient Mode of arrival: ambulatory Limitations: no limitations History of Present Illness HPI narrative: 63-year-old female with a history of diabetes, high blood pressure, cholecystectomy, and morbid obesity, presents emergency department today complaining of left rib pain starting yesterday after she was pushing laundry carts around. She states the pain is a burning 8/10 that is worse with movement, sitting, and better with lying down. She states it feels like ?my ribs are trying to bust and reported the pain was worse when she tried to sit on the toilet. She denies any trauma, falls, headaches, chest pain, shortness of breath, abdominal pain, nausea, vomiting, diarrhea, syncope, or fevers. She states she took Tylenol for it yesterday but has not taken anything today. MD complaint: other Onset (ago): hour(s) Duration: constant Onset: during exertion Pain location: other Severity: severe Quality: other Pain radiation: none Relieving factors: rest Exacerbating factors: movement Related Data Home Medications Medication Instructions Recorded Confirmed Lantus U-100 Insulin 100 unit SUBCUT BID 11/04/18 11/04/18 atorvastatin [Lipitor] 40 mg PO BEDTIME 11/04/18 11/04/18 bupropion HCl 150 mg PO QAM 11/04/18 11/04/18 furosemide [Lasix] 20 mg PO DAILY 11/04/18 11/04/18 gabapentin 600 mg PO TID 11/04/18 11/04/18 lisinopril 40 mg PO QNOON 11/04/18 11/04/18 Previous Rx's Medication Instructions Recorded Glucose: Home Monitoring Kit #1 device 04/29/18 Glucose: Test Strips #100 each 04/29/18 Syringes: Ultra Fine Insulin #100 each 04/29/18 Syringe w/Needle insulin aspart U- 100 100 unit/mL 30 unit SUBCUT QAC #3 vial 04/29/18 subcutaneous solution metoprolol succinate ER 200 mg 200 mg PO DAILY #90 tab 04/29/18 tablet,extended release 24 hr metformin 1,000 mg tablet 1,000 mg PO BIDCC #180 tab 05/06/18 oxycodone-acetaminophen 5 mg-325 1 tab PO BID PRN #60 tab 10/28/18 mg tablet sulfamethoxazole-trimethoprim 1 tab PO BID 7 Days #14 tab 11/04/18 [Bactrim DS] Allergies Allergy/AdvReac Type Severity Reaction Status Date / Time No Known Drug Allergies Allergy Verified 11/04/18 11:30 Review of Systems <TRESSA oTbar - Last Filed: 11/04/18 15:59> Review of Systems REVIEW OF SYSTEMS: GENERAL: Denies fever or chills. HENT: No head trauma. EYES: No double vision or vision loss. CARDIOVASCULAR: No chest pain or syncope. RESPIRATORY: No shortness of breath or cough. GASTROINTESTINAL: No nausea, vomiting, diarrhea, or constipation. GENITOURINARY: No flank pain or dysuria. MUSCULOSKELETAL: Complains of left side pain, see HPI. INTEGUMENTARY: No rash, lesions, or pruritus. NEURO: No numbness, tingling. PSYCH: No behavior or mood changes. PFSH <TRESSA Tobar - Last Filed: 11/04/18 15:59> Medical History Congestive heart failure (Acute) Heart disease (Acute) History of hysterectomy (Acute) Osteoarthritis (Acute) Diabetes mellitus (Chronic) Hypertension (Chronic) Peripheral neuropathy (Chronic) Sleep apnea (Chronic) Surgical History History of cholecystectomy (Resolved) History of knee replacement (Resolved 01/2015) Family History Mother Alcohol abuse Skin cancer Father Heart attack Social History household members: family and children Smoking Status: Never smoker Family History Mother Alcohol abuse Skin cancer Father Heart attack Social History household members: family and children Smoking Status: Never smoker Exam <TRESSA Tobar - Last Filed: 11/04/18 15:59> Initial Vital Signs Initial Vital Signs: Vital Signs Temperature 98.1 F 11/04/18 11:30 Pulse Rate 77 11/04/18 11:30 Respiratory Rate 16 11/04/18 11:30 Blood Pressure 230/92 H 11/04/18 11:30 Pulse Oximetry 97 11/04/18 11:30 PHYSICAL EXAMINATION: GENERAL: Alert, and cooperative, obese appearing female. Answers questions promptly and appropriately. Vital signs noted. HENT: Normocephalic, atraumatic. EYES: Symmetrical, sclera white, no periorbital swelling. CARDIOVASCULAR: S1 and S2 sounds normal. Regular rate and rhythm, no murmurs, clicks, or bruits. No pedal edema. RESPIRATORY: Normal respiratory rate, trachea midline, airway patent. No stridor, nasal flaring or accessory muscle use. Lungs are clear in all alfredo. MUSCULOSKELETAL: Very slight tenderness along the left-sided latissimus Dorsi muscle, reproducible and worse with movement. Patient has slow gait due to pain. Decreased spinal rotation range of motion due to pain. After administration of Toradol patient exhibited full range of motion of her back including spinal rotation, she was able to stand and sit without pain. Equal tone and mass bilaterally. No spinal tenderness or deformities. EXTREMITIES: CMS intact. No pedal edema. SKIN: Warm, dry, soft, appropriate color for ethnicity. No lesions, rashes, or wounds. NEURO: Alert and Oriented X 3. No sensory deficits. PSYCH: Appropriate affect and mood. <Ghazal Camp DO - Last Filed: 11/04/18 17:41> Initial Vital Signs Initial Vital Signs: Vital Signs Temperature 98.1 F 11/04/18 11:30 Pulse Rate 77 11/04/18 11:30 Respiratory Rate 16 11/04/18 11:30 Blood Pressure 230/92 H 11/04/18 11:30 Pulse Oximetry 97 11/04/18 11:30 Course <TRESSA Tobar - Last Filed: 11/04/18 15:59> Course Narrative: After administration of Toradol patient was able to exhibit full spinal rotation, she reports significant decrease in pain and increasing mobility. She states she feels better much to go home. Orders Ordered: ED Orders 11/04/18 11:37 XR ribs LT min 3V w CXR1V Stat 11/04/18 13:58 Urine Culture Stat Urine Microscopic Stat Discontinued Medications Ketorolac Tromethamine (Toradol) 30 mg IM NOW ONE Stop: 11/04/18 11:38 Last Admin: 11/04/18 11:49 Dose: 30 mg Vital Signs - 8 hr 11/04/18 11:30 11/04/18 12:20 11/04/18 13:00 Temperature 98.1 F Pulse Rate 77 60 60 Respiratory Rate 16 19 19 Blood Pressure 230/92 H Blood Pressure [Left Wrist] 130/50 L 152/85 H Pulse Oximetry 97 93 96 11/04/18 14:30 Temperature Pulse Rate 53 L Respiratory Rate 19 Blood Pressure Blood Pressure [Left Wrist] 182/87 H Pulse Oximetry 99 <Ghazal Camp DO - Last Filed: 11/04/18 17:41> Orders Ordered: ED Orders 11/04/18 11:37 XR ribs LT min 3V w CXR1V Stat 11/04/18 13:58 Urine Culture Stat Urine Microscopic Stat Discontinued Medications Ketorolac Tromethamine (Toradol) 30 mg IM NOW ONE Stop: 11/04/18 11:38 Last Admin: 11/04/18 11:49 Dose: 30 mg Vital Signs - 8 hr 11/04/18 11:30 11/04/18 12:20 11/04/18 13:00 Temperature 98.1 F Pulse Rate 77 60 60 Respiratory Rate 16 19 19 Blood Pressure 230/92 H Blood Pressure [Left Wrist] 130/50 L 152/85 H Pulse Oximetry 97 93 96 11/04/18 14:30 Temperature Pulse Rate 53 L Respiratory Rate 19 Blood Pressure Blood Pressure [Left Wrist] 182/87 H Pulse Oximetry 99 MDM - Chest Pain <TRESSA Tobar - Last Filed: 11/04/18 15:59> Medical Records Data Attestation: I reviewed the patient's medical records. Lab Data Attestation: I reviewed the patient's lab results. Lab Results 11/04/18 Range/Units 13:58 Urine RBC None seen (0-5/HPF) Urine WBC 10-30/hpf H (0-5/HPF) Ur Squamous Epith Cells 1-5 /hpf (0-5/HPF) Urine Bacteria Many (>30) H (None) Ur Culture Indicated? Specimen cultured Urine Dip Bedside Urine Glucose 100 mg/dl Bedside Urine Bilirubin - Negative Bedside Urine Ketone - Negative Urine Specific [place] 1.015 Bedside Urine Occult Blood - Negative Bedside Urine pH 6.0 Bedside Urine Protein +/- 15 Bedside Urine Urobilinogen - Negative Bedside Urine Nitrite - Negative Bedside Urine Leukocytes +++ 500 Esterase MDM Narrative Medical decision making narrative: Muscle strain most likely the cause of patient's back pain due mechanism of injury (pushing a cart), pain is reproducible with movement and better with rest, slight tenderness on examination, and lack of systemic symptoms for infection. However due to location urinalysis was ordered and a urinary tract infection was found. It is possible that this could be contributing to her pain, however I have a low suspicion of pyelonephritis has pain is reproducible with movement, no systemic symptoms, no dysuria, and pain and heard after pushing a cart. Culture was sent. Strict return precautions were given and follow-up instructions discussed. Very little concern for an acute abdomen due to very benign examination and no complaints of nausea, vomiting, or diarrhea. <Ghazal Camp DO - Last Filed: 11/04/18 17:41> Lab Data Lab Results 11/04/18 Range/Units 13:58 Urine RBC None seen (0-5/HPF) Urine WBC 10-30/hpf H (0-5/HPF) Ur Squamous Epith Cells 1-5 /hpf (0-5/HPF) Urine Bacteria Many (>30) H (None) Ur Culture Indicated? Specimen cultured Urine Dip Bedside Urine Glucose 100 mg/dl Bedside Urine Bilirubin - Negative Bedside Urine Ketone - Negative Urine Specific [place] 1.015 Bedside Urine Occult Blood - Negative Bedside Urine pH 6.0 Bedside Urine Protein +/- 15 Bedside Urine Urobilinogen - Negative Bedside Urine Nitrite - Negative Bedside Urine Leukocytes +++ 500 Esterase Discharge Plan Departure Patient Disposition: Home Clinical Impression: Back strain Qualifiers: Encounter type: initial encounter Qualified Code(s): S39.012A - Strain of muscle, fascia and tendon of lower back, initial encounter Urinary tract infection Qualifiers: Urinary tract infection type: acute cystitis Hematuria presence: without hematuria Qualified Code(s): N30.00 - Acute cystitis without hematuria Discharge Date/Time: 11/04/18 14:57 Interventions: ED Discharge Assessment Last Done: 11/04/18 14:56 Instructions: DI for Low Back Pain, DI for Urinary Tract Infection (UTI) Activity Restrictions/Additional Instructions: Thank you for entrusting me with your care today. As discussed, your x-ray does not show any fractures. However, your urine test showed that you have a urinary tract infection. I prescribed antibiotics at this time. We have sent this to be cultured and will call you in 2 days if your antibiotics need to be changed. Please follow up with her primary care provider in the next week. Return to the emergency department if he develops fevers, chills, abdominal pain, uncontrollable nausea and vomiting, chest pain, or shortness of breath. Prescriptions: New sulfamethoxazole-trimethoprim [Bactrim DS] 800-160 mg tablet 1 tab PO BID 7 Days Qty: 14 RF: 0 No Action metformin [Glucophage] 1,000 mg tablet 1,000 mg PO BIDCC Qty: 180 RF: 3 oxycodone-acetaminophen 5-325 mg tablet 1 tab PO BID PRN (Reason: pain) Qty: 60 RF: 0 insulin aspart U-100 [Novolog U-100 Insulin aspart] 100 unit/mL solution 30 unit SUBCUT QAC Qty: 3 RF: 11 metoprolol succinate 200 mg tablet extended release 24 hr 200 mg PO DAILY Qty: 90 RF: 3 Glucose: Home Monitoring Kit .Route .MEDSUPPLY Qty: 1 RF: 0 Glucose: Test Strips .Route .MEDSUPPLY Qty: 100 RF: 11 Syringes: Ultra Fine Insulin Syringe w/Needle .Route .MEDSUPPLY Qty: 100 RF: 11 gabapentin 300 mg Capsule 600 mg PO TID RF: 0 bupropion HCl 150 mg Tablet Extended Release 24 Hr 150 mg PO QAM RF: 0 atorvastatin [Lipitor] 40 mg tablet 40 mg PO BEDTIME RF: 0 furosemide [Lasix] 20 mg tablet 20 mg PO DAILY RF: 0 lisinopril 40 mg tablet 40 mg PO QNOON RF: 0 Lantus U-100 Insulin 100 unit/mL solution 100 unit SUBCUT BID RF: 0 Referrals: Florin Patel MD [Primary Care Provider] - <Ghazal Camp DO - Last Filed: 11/04/18 17:41> Cosign ED Attending Jackson[place] Attestation: I was immediately available in the department for consultation. This documentation has been reviewed and I agree with assessment and plan. Supervised by Ghazal Camp DO
[2018-11-04] MEDS: KETOROLAC 60 MG/2 ML VIAL 30 MG IM (11:49)
[2018-11-04 12:20] VITALS: BP 130/50; PULSE 60; RESP 19; O2SAT 93
[2018-11-04 13:00] VITALS: BP 152/85; PULSE 60; RESP 19; O2SAT 96
[2018-11-04 14:21] LABS: RBC Urine None Seen (0-5/HPF)
[2018-11-04 14:30] VITALS: BP 182/87; PULSE 53; RESP 19; O2SAT 99
[2018-11-04 14:37] LABS: Bacteria Urine Many (>30); Culture Indicated Urine Specimen Cultured; Squamous Epithelial Cell Urine 1-5 /HPF (0-5/HPF); WBC Urine 10-30/HPF (0-5/HPF)
== END 2018-11-04 14:57 | disposition home or self-care (01) ==
PROVIDERS: Emergency Provider Nurse Practitioner; PCP Student in an Organized Health Care Education/Training Program
DX: S39.012A Strain of muscle, fascia and tendon of lower back, initial encounter (principal); N30.00 Acute cystitis without hematuria; X50.0XXA Overexertion from strenuous movement or load, initial encounter
CPT/HCPCS: 71101; 81003; 81015; 87077; 87086; 87186; 96372; 99283; J1885

== ENCOUNTER → 2019-01-07 08:29 | Outpatient (CLI) | payer OTHER, SELFPAY ==
[2018-04-21 00:54] VITALS: BMI 51.5
[2019-01-07 09:42] LABS: Alkaline Phosphatase 98 U/L (38-126); BUN Creatinine Ratio 22.9 (6-22); Blood Urea Nitrogen 16 mg/dL (7-17); Calcium 9.3 mg/dL (8.4-10.2); Carbon Dioxide 27 mmol/L (22-32); Chloride 100 mmol/L (98-107); Estimated Glomerular Filt Rate > 60.0 mL/min (>60); Glucose 184 mg/dL (80-110); HEMOLYSIS < 15 (0-50); Phosphorous 3.5 mg/dL (2.8-4.1); Potassium 3.8 mmol/L (3.4-5.1); Sodium 139 mmol/L (137-145)
[2019-01-07 10:10] LABS: Vitamin D 25 Hydroxy (D3) 20.8 ng/mL (30.0-100.0)
[2019-01-09 14:47] LABS: Parathyroid Hormone Int 76 pg/mL (14-64)
== END ==
PROVIDERS: PCP Student in an Organized Health Care Education/Training Program; Visit Provider Student in an Organized Health Care Education/Training Program
DX: E55.9 Vitamin D deficiency, unspecified (principal); E11.610 Type 2 diabetes mellitus with diabetic neuropathic arthropathy; Z79.4 Long term (current) use of insulin
CPT/HCPCS: 36415; 80048; 82306; 83036; 83516; 83970; 84075; 84100

== ENCOUNTER → 2019-04-30 14:05 | Outpatient (CLI) | payer OTHER, SELFPAY ==
[2018-04-21 00:54] VITALS: BMI 51.5
[2019-04-30 15:17] LABS: Appearance Urine UA SL CLOUDY; Bilirubin Urine UA NEGATIVE (NEGATIVE); Color Urine UA YELLOW; Glucose Urine UA NEGATIVE (Negative); Ketones Urine UA NEGATIVE (NEGATIVE); Leukocyte Esterase Urine UA 1+ (NEGATIVE); Nitrite Urine UA NEGATIVE (Negative); Occult Blood Urine UA NEGATIVE (Negative); Protein Urine UA NEGATIVE (Negative); Specific Gravity Urine UA 1.015 (1.000-1.035); Urobilinogen Urine UA 0.2 E.U./dL (0.2)
[2019-04-30 15:24] LABS: Bacteria Urine Many (>30); Culture Indicated Urine Cult Not Indicated; RBC Urine 0-1/HPF (0-5/HPF); Squamous Epithelial Cell Urine 1-5 /HPF (0-5/HPF); WBC Urine 5-10/HPF (0-5/HPF); pH Urine UA 6.5 (4.5-8.0)
[2019-04-30 15:32] LABS: Hemoglobin A1C% w Est Avg Glu 8.1 % (4.0-6.0)
[2019-04-30 16:10] LABS: Vitamin D 25 Hydroxy (D3) 20.7 ng/mL (30.0-100.0)
[2019-05-04 15:03] LABS: Parathyroid Hormone Int 120 pg/mL (14-64)
== END ==
PROVIDERS: PCP Student in an Organized Health Care Education/Training Program; Visit Provider Student in an Organized Health Care Education/Training Program
DX: E11.21 Type 2 diabetes mellitus with diabetic nephropathy (principal); E55.9 Vitamin D deficiency, unspecified; R30.0 Dysuria; E11.610 Type 2 diabetes mellitus with diabetic neuropathic arthropathy; I10 Essential (primary) hypertension; Z79.4 Long term (current) use of insulin
CPT/HCPCS: 36415; 81001; 82306; 83036; 83970; 87077; 87086; 87186

== ENCOUNTER 2019-05-15 13:21 | Emergency (ER) | payer OTHER, SELFPAY ==
[2018-04-21 00:54] VITALS: BMI 51.5
[2019-05-15 13:30] VITALS: BP 180/7; PULSE 75; RESP 18; TEMP 37; O2SAT 96; BMI 54.5
--- NOTE | 2019-05-15 13:48 | ED_ITS ---
HPI - Extremity Problem <Bertha MejiaTRESSA - Last Filed: 05/15/19 21:34> General Chief complaint: Extremity Problem,Nontraumatic Stated complaint: Pain in Both Legs Time Seen by Provider: 05/15/19 13:24 Source: patient Mode of arrival: Ambulatory Limitations: no limitations History of Present Illness HPI Narrative: 63yo female with a history of DM, obesity, CHF, presents to the emergency department complaining of worsening right leg swelling since this morning. She also states her leg has begun ?burning? she noticed the area of redness has increased and is concerned that she may need antibiotics. She states she takes daily ?water pills ?and is consistent with controlling her salt and fluid intake to help with her fluid retention. Patient denies any other symptoms such as chest pain, shortness of breath, dizziness, nausea, vomiting, diarrhea, or other concerns. She states she recently seen Dr. Patel 8 days ago and was put on ?blood pressure medication and antibiotics (patient states she thought that the antibiotics were for her leg, however, note states it was for the urinary tract infection). Related Data Home Medications Medication Instructions Recorded Confirmed furosemide [Lasix] 20 mg PO DAILY 11/04/18 04/30/19 lisinopril 40 mg PO QNOON 11/04/18 04/30/19 Previous Rx's Medication Instructions Recorded Glucose: Home Monitoring Kit #1 device 04/29/18 metoprolol succinate 200 mg 200 mg PO DAILY #90 tab 04/29/18 tablet,extended release 24 hr metformin 1,000 mg tablet 1,000 mg PO BIDCC #180 tab 05/06/18 Glucose: Test Strips #100 each 12/16/18 Syringes: Ultra Fine Insulin #100 each 12/16/18 Syringe w/Needle gabapentin 300 mg capsule 600 mg PO TID #180 cap 12/16/18 insulin aspart U-100 100 unit/mL 30 unit SUBCUT QAC #3 vial 12/16/18 subcutaneous solution insulin glargine 100 unit/mL 80 unit SUBCUT BID #10 ml 12/16/18 subcutaneous solution omeprazole 40 mg capsule,delayed 40 mg PO DAILY #90 cap 12/21/18 release atorvastatin 40 mg tablet 40 mg PO BEDTIME #90 tab 01/19/19 meloxicam 7.5 mg tablet 7.5 mg PO BIDCC #180 tab 01/19/19 furosemide [Lasix] 20 mg PO DAILY 14 Days #14 tab 05/15/19 oxycodone-acetaminophen 5 mg-325 1 tab PO BID PRN #60 tab 05/25/19 mg tablet diltiazem HCl 120 mg 120 mg PO BID #60 cap 05/26/19 capsule,extended release 12 hr Allergies Allergy/AdvReac Type Severity Reaction Status Date / Time No Known Drug Allergies Allergy Verified 04/30/19 13:34 Review of Systems <TRESSA Tobar - Last Filed: 05/15/19 21:34> Review of Systems Narrative: REVIEW OF SYSTEMS: GENERAL: Denies fever or chills. HENT: No head trauma, hearing loss or sore throat. EYES: No loss of vision, double vision, eye pain, or irritation. CARDIOVASCULAR: No chest pain or syncope. RESPIRATORY: No shortness of breath or cough. GASTROINTESTINAL: No nausea, vomiting, diarrhea, or constipation. GENITOURINARY: No flank pain or dysuria. MUSCULOSKELETAL: Complains of right leg swelling and pain, see HPI. INTEGUMENTARY: No rash, lesions, or pruritus. NEURO: No numbness or tingling. PSYCH: No behavior or mood changes. Patient History <TRESSA Tobar - Last Filed: 05/15/19 21:34> Medical History Congestive heart failure (Acute) Diabetes mellitus (Chronic) Heart disease (Acute) Hypertension (Chronic) Osteoarthritis (Acute) Peripheral neuropathy (Chronic) Sleep apnea (Chronic) Surgical History History of cholecystectomy (Resolved) History of hysterectomy (Acute) History of knee replacement (Resolved 01/2015) Family History Mother Alcohol abuse Skin cancer Father Heart attack Social History household members: family and children Smoking Status: Never smoker Smoking Status: Never smoker alcohol intake frequency: 0-2 drinks per day Substance Use Type: does not use Exam <TRESSA Tobar - Last Filed: 05/15/19 21:34> Initial Vital Signs Initial Vital Signs: Vital Signs Temperature 98.6 F 05/15/19 13:30 Pulse Rate 75 05/15/19 13:30 Respiratory Rate 18 05/15/19 13:30 Blood Pressure 180/7 H 05/15/19 13:30 Pulse Oximetry 96 05/15/19 13:30 PHYSICAL EXAMINATION: GENERAL: Well groomed, alert, and cooperative. Answers questions promptly and appropriately. Vital signs noted. HENT: Normocephalic, atraumatic. EYES: Conjunctiva pink, sclera white, no periorbital swelling. CHEST: Normal to inspection and without deformities. CARDIOVASCULAR: S1 and S2 sounds normal. Regular rate and rhythm, no murmurs, clicks, or bruits. No pedal edema. RESPIRATORY: Normal respiratory rate, trachea midline, airway patent. No stridor, nasal flaring or accessory muscle use. Lungs are clear in all alfredo w ithout wheeze, rhonchi, or crackles. GASTROINTESTINAL: Bowel sounds normoactive. Abdomen is soft and non-tender. No organomegaly. MUSCULOSKELETAL: Significant swelling noted to legs bilaterally, increased erythema noted to anterior and lateral aspect of leg suggesting possible beginnings of cellulitis. No blisters, lesions, or oozing. EXTREMITIES: CMS intact. Moves all extremities. Cap refill less than 2 seconds in toes. SKIN: Warm, dry, soft, appropriate color for ethnicity. No lesions, rashes, or wounds. NEURO: Alert and Oriented X 3. Good coordination. PSYCH: Appropriate affect and mood. <Catrina Fonseca MD - Last Filed: 05/29/19 18:36> Initial Vital Signs Initial Vital Signs: Vital Signs Temperature 98.6 F 05/15/19 13:30 Pulse Rate 75 05/15/19 13:30 Respiratory Rate 18 05/15/19 13:30 Blood Pressure 180/7 H 05/15/19 13:30 Pulse Oximetry 96 05/15/19 13:30 Scores <TRESSA Tobar - Last Filed: 05/15/19 21:34> Wells' Criteria for DVT Active Cancer (Treatment within 6 months): No Bedridden recently >3 days or major surgery within 4 weeks: No Calf Swelling >3cm compared to other leg: No Collateral (nonvericose) superficial veins present: No Entire leg swollen: No Localized tenderness along the deep vein system: No Pitting edema, confined to symtomatic leg: No Paralysis, paresis, or recent plaster immobilization of ext: No Previously documented DVT: No Alternative dx to DVT as likely or more likely: No Wells' criteria for DVT: 0 Course <TRESSA Tobar - Last Filed: 05/15/19 21:34> Orders Ordered: ED Orders 05/15/19 14:15 Complete Blood Count AUTO DIFF Stat Comprehensive Metabolic Panel Stat NT-proBNP (BNP-Adult 18+) Stat Consultations Consultation #1: Patient staffed with Dr. Fonseca who also viewed patient's legs. Vital Signs Vital signs: Vital Signs - 8 hr 05/15/19 13:30 05/15/19 15:50 Temperature 98.6 F Pulse Rate 75 71 Respiratory Rate 18 16 Blood Pressure 180/7 H Blood Pressure [Right Arm] 151/76 H Pulse Oximetry 96 98 <Catrina Fonseca MD - Last Filed: 05/29/19 18:36> Orders Ordered: ED Orders 05/15/19 14:15 Complete Blood Count AUTO DIFF Stat Comprehensive Metabolic Panel Stat NT-proBNP (BNP-Adult 18+) Stat Vital Signs Vital signs: Vital Signs - 8 hr 05/15/19 13:30 05/15/19 15:50 Temperature 98.6 F Pulse Rate 75 71 Respiratory Rate 18 16 Blood Pressure 180/7 H Blood Pressure [Right Arm] 151/76 H Pulse Oximetry 96 98 MDM - Extremity (Nontraumatic) <TRESSA Tobar - Last Filed: 05/15/19 21:34> Medical Records Attestation: I reviewed the patient's medical records. Lab Data Attestation: I reviewed the patient's lab results. Result diagrams: 05/15/19 14:15 05/15/19 14:15 Labs: Lab Results 05/15/19 05/15/19 Range/Units 14:15 14:15 WBC 10.9 (4.5-11.0) X10^3/uL RBC 4.00 (4.0-5.2) X10^6/uL Hgb 11.8 L (12.0-16.0) g/dL Hct 35.2 L (36-46) % MCV 87.8 (80-100) fL MCH 29.6 (26-34) PG MCHC 33.7 (30-36) % RDW 13.7 (11.6-14.8) % Plt Count 280 (150-400) X10^3/uL Neut % (Auto) 67.6 (50-75) % Lymph % (Auto) 23.7 L (25-40) % [place] % (Auto) 4.6 (3-14) % Eos % (Auto) 3.5 (2-4) % Baso % (Auto) 0.6 (0-2) % Neut # (Auto) 7400 H (4406-5252) /uL Lymph # (Auto) 2600 (5410-5650) /uL [place] # (Auto) 500 (0-900) /uL Eos # (Auto) 400 (0-450) /uL Baso # (Auto) 100 (0-100) /uL Sodium 140 (137-145) mmol/L Potassium 3.7 (3.4-5.1) mmol/L Chloride 102 (98-107) mmol/L Carbon Dioxide 30 (22-32) mmol/L BUN 12 (7-17) mg/dL Creatinine 0.80 (0.52-1.04) mg/dL Estimated GFR > 60.0 (>60) mL/min BUN/Creatinine Ratio 15.0 (6-22) Glucose 131 H (80-110) mg/dL Calcium 8.6 (8.4-10.2) mg/dL Total Bilirubin 0.5 (0.2-1.3) mg/dL AST 22 (14-36) IU/L ALT 23 (<35) IU/L Alkaline Phosphatase 118 (38-126) U/L NT-Pro-B Natriuret Pep 72 (<125) pg/mL Total Protein 7.3 (6.3-8.2) g/dL Albumin 3.9 (3.5-5.0) g/dL Globulin 3.4 (1.7-4.1) g/dL Albumin/Globulin Ratio 1.1 (1.0-2.8) MDM Narrative Medical decision making narrative: 63-year-old female presenting to the emergency department for increased swelling to right leg, burning, and redness. I suspect this most likely caused from worsening chronic lymphedema and possibly the start of cellulitis due to increased redness. Less likely CHF exacerbation as patient denies shortness of breath, lung sounds are normal, and BNP is within normal limits. Patient's renal function is intact so after consultation with Dr. Fonseca, her Lasix was increased. Patient's blood pressure is slightly elevated so do not suspect that this will largely affect her blood pressure. She was also started on doxycycline to cover for cellulitis (redness, complains of burning, and increased swelling). Less likely DVT due to location of pain mostly on the lateral aspect leg, associated redness, and history of lymphedema, no history of blood clots. Patient agreed to plan of care verbalized unde rstanding. She was encouraged to follow-up the primary care provider in 1-2 weeks for further evaluation. <Catrina Fonseca MD - Last Filed: 05/29/19 18:36> Lab Data Labs: Lab Results 05/15/19 05/15/19 Range/Units 14:15 14:15 WBC 10.9 (4.5-11.0) X10^3/uL RBC 4.00 (4.0-5.2) X10^6/uL Hgb 11.8 L (12.0-16.0) g/dL Hct 35.2 L (36-46) % MCV 87.8 (80-100) fL MCH 29.6 (26-34) PG MCHC 33.7 (30-36) % RDW 13.7 (11.6-14.8) % Plt Count 280 (150-400) X10^3/uL Neut % (Auto) 67.6 (50-75) % Lymph % (Auto) 23.7 L (25-40) % [place] % (Auto) 4.6 (3-14) % Eos % (Auto) 3.5 (2-4) % Baso % (Auto) 0.6 (0-2) % Neut # (Auto) 7400 H (1846-2545) /uL Lymph # (Auto) 2600 (7356-4417) /uL [place] # (Auto) 500 (0-900) /uL Eos # (Auto) 400 (0-450) /uL Baso # (Auto) 100 (0-100) /uL Sodium 140 (137-145) mmol/L Potassium 3.7 (3.4-5.1) mmol/L Chloride 102 (98-107) mmol/L Carbon Dioxide 30 (22-32) mmol/L BUN 12 (7-17) mg/dL Creatinine 0.80 (0.52-1.04) mg/dL Estimated GFR > 60.0 (>60) mL/min BUN/Creatinine Ratio 15.0 (6-22) Glucose 131 H (80-110) mg/dL Calcium 8.6 (8.4-10.2) mg/dL Total Bilirubin 0.5 (0.2-1.3) mg/dL AST 22 (14-36) IU/L ALT 23 (<35) IU/L Alkaline Phosphatase 118 (38-126) U/L NT-Pro-B Natriuret Pep 72 (<125) pg/mL Total Protein 7.3 (6.3-8.2) g/dL Albumin 3.9 (3.5-5.0) g/dL Globulin 3.4 (1.7-4.1) g/dL Albumin/Globulin Ratio 1.1 (1.0-2.8) Discharge Plan Departure Patient Disposition: Home Clinical Impression: Lymphedema Cellulitis Qualifiers: Site of cellulitis: extremity Site of cellulitis of extremity: lower extremity Laterality: right Qualified Code(s): L03.115 - Cellulitis of right lower limb Discharge Date/Time: 05/15/19 16:13 Instructions: DI for Cellulitis -- Adult Activity Restrictions/Additional Instructions: Thank you for entrusting me with your care today. As discussed, your laboratory work is non-remarkable. I have given a prescription for an additional water pill to take daily for the next 2 weeks. Please take 1 pill with the pills that your ready take. I have also prescribed antibiotics as it appears that you may be developing an infection in your right leg. Your prescriptions were sent to [facility]. Please take these as directed. Follow up with your primary care provider in the next 1-2 weeks for further evaluation. Return emergency department for any new or worsening symptoms such as high fevers, shortness of breath, chest pain, uncontrollable vomiting, worsening swelling, or other concerns. Prescriptions: New furosemide [Lasix] 20 mg tablet 20 mg PO DAILY 14 Days Qty: 14 RF: 0 No Action metformin [Glucophage] 1,000 mg tablet 1,000 mg PO BIDCC Qty: 180 RF: 3 Novolog U-100 Insulin aspart 100 unit/mL solution 30 unit SUBCUT QAC Qty: 3 RF: 11 (DME) Glucose: Test Strips 0 .Route .MEDSUPPLY Qty: 100 RF: 11 Lantus U-100 Insulin 100 unit/mL solution 80 unit SUBCUT BID Qty: 10 RF: 11 (DME) Syringes: Ultra Fine Insulin Syringe w/Needle 0 .Route .MEDSUPPLY Qty: 100 RF: 11 gabapentin 300 mg capsule 600 mg PO TID Qty: 180 RF: 1 omeprazole 40 mg capsule,delayed release(DR/EC) 40 mg PO DAILY Qty: 90 RF: 0 atorvastatin [Lipitor] 40 mg tablet 40 mg PO BEDTIME Qty: 90 RF: 3 meloxicam [Mobic] 7.5 mg tablet 7.5 mg PO BIDCC Qty: 180 RF: 3 oxycodone-acetaminophen 5-325 mg tablet 1 tab PO BID PRN (Reason: pain) Qty: 60 RF: 0 diltiazem HCl 120 mg capsule,extended release 12 hr 120 mg PO BID Qty: 60 RF: 0 metoprolol succinate 200 mg tablet extended release 24 hr 200 mg PO DAILY Qty: 90 RF: 3 (DME) Glucose: Home Monitoring Kit 0 .Route .MEDSUPPLY Qty: 1 RF: 0 furosemide [Lasix] 20 mg tablet 20 mg PO DAILY RF: 0 lisinopril 40 mg tablet 40 mg PO QNOON RF: 0 Referrals: Florin Patel MD [Primary Care Provider] -
[2019-05-15 14:29] LABS: Add Manual Diff / Slide Review NO; Basophils Absolute Auto 100 /uL (0-100); Basophils Percent Auto 0.6 % (0-2); Eosinophils Absolute Auto 400 /uL (0-450); Eosinophils Percent Auto 3.5 % (2-4); Hematocrit 35.2 % (36-46); Hemoglobin 11.8 g/dL (12.0-16.0); Lymphocytes Absolute Auto 2600 /uL (1100-4500); Lymphocytes Percent Auto 23.7 % (25-40); Mean Corpuscular HGB Conc 33.7 % (30-36); Mean Corpuscular Hemoglobin 29.6 PG (26-34); Mean Corpuscular Volume 87.8 fL (80-100); Monocytes Absolute Auto 500 /uL (0-900); Monocytes Percent Auto 4.6 % (3-14); Neutrophils Absolute Auto 7400 /uL (1500-7000); Neutrophils Percent Auto 67.6 % (50-75); Platelet Count 280 X10^3/uL (150-400); Red Cell Distribution Width 13.7 % (11.6-14.8); White Blood Cell Count 10.9 X10^3/uL (4.5-11.0)
[2019-05-15 14:30] LABS: HEMOLYSIS < 15 (0-50)
[2019-05-15 14:36] LABS: Alanine Aminotransferase 23 IU/L (<35); Albumin 3.9 g/dL (3.5-5.0); Albumin Globulin Ratio 1.1 (1.0-2.8); Alkaline Phosphatase 118 U/L (38-126); Aspartate Aminotransferase 22 IU/L (14-36); Bilirubin Total 0.5 mg/dL (0.2-1.3); Blood Urea Nitrogen 12 mg/dL (7-17); Calcium 8.6 mg/dL (8.4-10.2); Carbon Dioxide 30 mmol/L (22-32); Chloride 102 mmol/L (98-107); Estimated Glomerular Filt Rate > 60.0 mL/min (>60); Globulin 3.4 g/dL (1.7-4.1); Glucose 131 mg/dL (80-110); Potassium 3.7 mmol/L (3.4-5.1); Sodium 140 mmol/L (137-145); Total Protein 7.3 g/dL (6.3-8.2)
[2019-05-15 15:09] LABS: NT-proBNP (BNP-Adult 18+) 72 pg/mL (<125)
[2019-05-15 15:50] VITALS: BP 151/76; PULSE 71; RESP 16; O2SAT 98
== END 2019-05-15 16:13 | disposition home or self-care (01) ==
PROVIDERS: Emergency Provider Nurse Practitioner; PCP Student in an Organized Health Care Education/Training Program
DX: I89.0 Lymphedema, not elsewhere classified (principal); L03.115 Cellulitis of right lower limb
CPT/HCPCS: 36415; 80053; 83880; 85025; 99281; 99283

== ENCOUNTER 2019-05-23 15:49 | Emergency (ER) | payer OTHER, SELFPAY ==
[2018-04-21 00:54] VITALS: BMI 51.5
[2019-05-23 16:10] VITALS: BP 161/77; PULSE 83; RESP 20; TEMP 36.5; O2SAT 98; BMI 53.2
--- NOTE | 2019-05-23 18:41 | PC.NURSE ---
pt c/o left leg infection starting, recently treated for cellulites in her right leg.
[2019-05-23 19:36] LABS: Add Manual Diff / Slide Review NO; Basophils Absolute Auto 100 /uL (0-100); Basophils Percent Auto 0.5 % (0-2); Eosinophils Absolute Auto 200 /uL (0-450); Eosinophils Percent Auto 2.3 % (2-4); Hematocrit 35.1 % (36-46); Hemoglobin 11.7 g/dL (12.0-16.0); Lymphocytes Absolute Auto 2100 /uL (1100-4500); Mean Corpuscular HGB Conc 33.2 % (30-36); Mean Corpuscular Hemoglobin 29.7 PG (26-34); Mean Corpuscular Volume 89.4 fL (80-100); Monocytes Absolute Auto 500 /uL (0-900); Monocytes Percent Auto 4.3 % (3-14); Neutrophils Absolute Auto 7700 /uL (1500-7000); Neutrophils Percent Auto 72.9 % (50-75); Platelet Count 291 X10^3/uL (150-400); Red Blood Cell Count 3.93 X10^6/uL (4.0-5.2); Red Cell Distribution Width 14.2 % (11.6-14.8); White Blood Cell Count 10.6 X10^3/uL (4.5-11.0)
[2019-05-23 19:45] LABS: Alanine Aminotransferase 38 IU/L (<35); Albumin 3.9 g/dL (3.5-5.0); Albumin Globulin Ratio 1.1 (1.0-2.8); Alkaline Phosphatase 88 U/L (38-126); Aspartate Aminotransferase 44 IU/L (14-36); BUN Creatinine Ratio 18.6 (6-22); Bilirubin Total 0.5 mg/dL (0.2-1.3); Blood Urea Nitrogen 13 mg/dL (7-17); Carbon Dioxide 32 mmol/L (22-32); Chloride 104 mmol/L (98-107); Estimated Glomerular Filt Rate > 60.0 mL/min (>60); Globulin 3.4 g/dL (1.7-4.1); Glucose 92 mg/dL (80-110); HEMOLYSIS < 15 (0-50); Sodium 142 mmol/L (137-145); Total Protein 7.3 g/dL (6.3-8.2)
[2019-05-23 19:54] LABS: NT-proBNP (BNP-Adult 18+) 133 pg/mL (<125)
[2019-05-23] MEDS: FUROSEMIDE 20 MG TABLET PO (19:56)
[2019-05-23] MEDS: IBUPROFEN 400 MG TABLET PO (19:56)
[2019-05-23] MEDS: ACETAMINOPHEN 325 MG TABLET 650 MG PO (19:56)
--- NOTE | 2019-05-23 20:01 | ED_ITS ---
HPI - Extremity Problem <TRESSA Ruiz - Last Filed: 05/23/19 22:24> General Chief complaint: Extremity Problem,Nontraumatic Stated complaint: legs swelling and lots of pain Time Seen by Provider: 05/23/19 18:40 Source: patient Mode of arrival: Wheelchair Limitations: no limitations History of Present Illness HPI Narrative: This is a 63-year-old female, nonsmoker, who presents to ED with chief complain of swelling to bilateral legs, burning and tightness sensation to bilateral leg which is worse in left side. Patient reports she has been walking more since she is working more. Patient denies chest pain, breathing difficulty, fever, nausea or vomiting. Patient takes furosemide, water pill, 20 mg twice a day usually but she had not taking the medication since she was do ing laundry at son's house and she knew the bathroom door will be locked today. Patient was evaluated in ED about a week ago for similar symptoms and was discharged to home with doxycycline b.i.d. dose for 7 day course which she just completed to cover cellulitis and increased dose of Lasix. Patient denies history of blood clots, taking hormone replacement therapy, a prolonged travel. Patient contacted Dr. Patel with request of refilling antibiotic medication and was instructed to get an evaluation in ED. Related Data Home Medications Medication Instructions Recorded Confirmed furosemide [Lasix] 20 mg PO DAILY 11/04/18 04/30/19 lisinopril 40 mg PO QNOON 11/04/18 04/30/19 Previous Rx's Medication Instructions Recorded Glucose: Home Monitoring Kit #1 device 04/29/18 metoprolol succinate 200 mg 200 mg PO DAILY #90 tab 04/29/18 tablet,extended release 24 hr metformin 1,000 mg tablet 1,000 mg PO BIDCC #180 tab 05/06/18 Glucose: Test Strips #100 each 12/16/18 Syringes: Ultra Fine Insulin #100 each 12/16/18 Syringe w/Needle gabapentin 300 mg capsule 600 mg PO TID #180 cap 12/16/18 insulin aspart U-100 100 unit/mL 30 unit SUBCUT QAC #3 vial 12/16/18 subcutaneous solution insulin glargine 100 unit/mL 80 unit SUBCUT BID #10 ml 12/16/18 subcutaneous solution omeprazole 40 mg capsule,delayed 40 mg PO DAILY #90 cap 12/21/18 release atorvastatin 40 mg tablet 40 mg PO BEDTIME #90 tab 01/19/19 meloxicam 7.5 mg tablet 7.5 mg PO BIDCC #180 tab 01/19/19 oxycodone-acetaminophen 5 mg-325 1 tab PO BID PRN #60 tab 04/27/19 mg tablet diltiazem HCl 120 mg 120 mg PO BID #60 cap 04/30/19 capsule,extended release 12 hr furosemide [Lasix] 20 mg PO DAILY 14 Days #14 tab 05/15/19 Allergies Allergy/AdvReac Type Severity Reaction Status Date / Time No Known Drug Allergies Allergy Verified 04/30/19 13:34 Review of Systems <TRESSA Ruiz - Last Filed: 05/23/19 22:24> Review of Systems Narrative: General: Denies fever, chills, fatigue, malaise, sweats. HEENT: Denies sinus pain, ear pain, sore throat, difficulty swallowing, dizziness. Respiratory: Denies dyspnea, cough, wheezing, hemoptysis, sputum. Cardiovascular: Denies chest pain, palpitations, orthopnea, edema. Gastrointestinal: Denies nausea, vomiting, abdominal pain, diarrhea, constipation, melena. : Denies dysuria, frequency, incontinence, hematuria, urinary retention. Musculoskeletal: See HPI Skin: See HPI Neurologic: Denies weakness, headache, numbness, change in speech, confusion, seizures, incoordination. Psychiatric: No concerning psychosocial issues. 12-point review of systems is negative except for those stated above. Patient History <TRESSA Ruiz - Last Filed: 05/23/19 22:24> Medical History Congestive heart failure (Acute) Diabetes mellitus (Chronic) Heart disease (Acute) Hypertension (Chronic) Osteoarthritis (Acute) Peripheral neuropathy (Chronic) Sleep apnea (Chronic) Surgical History History of cholecystectomy (Resolved) History of hysterectomy (Acute) History of knee replacement (Resolved 01/2015) Family History Mother Alcohol abuse Skin cancer Father Heart attack Social History household members: family and children Smoking Status: Never smoker Smoking Status: Never smoker alcohol intake frequency: 0-2 drinks per day Substance Use Type: does not use Exam <TRESSA Ruiz - Last Filed: 05/23/19 22:24> Narrative Exam Narrative: GEN: Alert, oriented x 3, obese female, and in no acute distres s. Head: Normal cephalic, atraumatic. No scalp or temporal tenderness, palpable mass or rash. EYES: Pupils are equal, round, and reactive to light and accommodation. Extraocular muscles are intact bilaterally. There is no subconjunctival hemorrhage, exudate and sclera non-icteric. ENT: Bilateral auditory canals and tympanic membranes clear. Hearing grossly intact. Nose without bleeding, purulent discharge or deviation. Facial sinuses nontender to palpate. Mucous membrane moist, no mucosal lesion. Throat without erythema, tonsillar hypertrophy or exudate. Uvula in midline, airway patent. Neck: Trachea in midline. No JVD, non-tender without lymphadenopathy. No masses or thyroid megaly. Supple, non-tender and no meningeal signs. CARDIAC: Normal regular rate and rhythm without murmurs, gallops, or rubs. No chest wall tenderness. +1 lower peripheral edema without cyanosis or pallor. Capillary refill is less than 2 seconds. RESPIRATORY: Lungs are clear to auscultate bilaterally. No cough, wheezes, rales, or rhonchi. No stridor, respiratory distress, increase work of breathing, or accessary muscle used. ABD: Abdomen soft, nontender, obese but non-distended. No guarding or rebound tenderness to palpate. Bowel sounds are normal in all 4 quadrants. There is no palpable masses or organomegaly. EXT: Tenderness to palpate in bilateral lower extremities with no loss of sensation, strength, effusion. SKIN: Warm, dry, normal color for patient. Bilateral lower extremity rubra without clear demarcation, small vesicles over bilateral lower leg, no signif icant warmth appreciated. Skin appears to be thicken BACK: Nontender without deformity or crepitance. No flank tenderness. NEUROLOGICAL: Alert and oriented to place, time and person. Sensation and motor function intact bilaterally. PSYCHIATRIC: Good judgement and reason, without hallucinations, abnormal affect or abnormal behaviors during the examination. Initial Vital Signs Initial Vital Signs: Vital Signs Temperature 97.7 F 05/23/19 16:10 Pulse Rate 83 05/23/19 16:10 Respiratory Rate 20 05/23/19 16:10 Blood Pressure 161/77 H 05/23/19 16:10 Pulse Oximetry 98 05/23/19 16:10 <Michael Lopez DO - Last Filed: 05/24/19 05:39> Initial Vital Signs Initial Vital Signs: Vital Signs Temperature 97.7 F 05/23/19 16:10 Pulse Rate 83 05/23/19 16:10 Respiratory Rate 20 05/23/19 16:10 Blood Pressure 161/77 H 05/23/19 16:10 Pulse Oximetry 98 05/23/19 16:10 Scores <TRESSA Ruiz - Last Filed: 05/23/19 22:24> GCS Anni coma scale eye opening: Spontaneous Anni coma scale verbal response: Orientated Anni coma scale motor response: Obey commands [place] coma scale total score: 15 Wells' Criteria for DVT Active Cancer (Treatment within 6 months): No Bedridden recently >3 days or major surgery within 4 weeks: No Calf Swelling >3cm compared to other leg: No Collateral (nonvericose) superficial veins present: No Entire leg swollen: Yes Localized tenderness along the deep vein system: No Pitting edema, confined to symtomatic leg: No Paralysis, paresis, or recent plaster immobilization of ext: No Previously documented DVT: No Alternative dx to DVT as likely or more likely: Yes Wells' criteria for DVT: -1 Course <TRESSA Ruiz - Last Filed: 05/23/19 22:24> Orders Ordered: Discontinued Medications Acetaminophen (Tylenol) 650 mg PO NOW ONE Stop: 05/23/19 19:53 Last Admin: 05/23/19 19:56 Dose: 650 mg Documented by: ELIDIA Furosemide (Lasix) 20 mg PO NOW ONE Stop: 05/23/19 19:04 Last Admin: 05/23/19 19:56 Dose: 20 mg Documented by: ELIDIA Ibuprofen (Advil) 400 mg PO NOW ONE Stop: 05/23/19 19:53 Last Admin: 05/23/19 19:56 Dose: 400 mg Documented by: ELIDIA Vital Signs Vital signs: Vital Signs - 8 hr 05/23/19 16:10 05/23/19 20:29 05/23/19 20:33 Temperature 97.7 F Pulse Rate 83 78 83 Respiratory Rate 20 18 18 Blood Pressure 161/77 H Blood Pressure [Right Arm] 188/87 H Pulse Oximetry 98 95 96 <Michael Lopez DO - Last Filed: 05/24/19 05:39> Orders Ordered: Discontinued Medications Acetaminophen (Tylenol) 650 mg PO NOW ONE Stop: 05/23/19 19:53 Last Admin: 05/23/19 19:56 Dose: 650 mg Documented by: ELIDIA Furosemide (Lasix) 20 mg PO NOW ONE Stop: 05/23/19 19:04 Last Admin: 05/23/19 19:56 Dose: 20 mg Documented by: ELIDIA Ibuprofen (Advil) 400 mg PO NOW ONE Stop: 05/23/19 19:53 Last Admin: 05/23/19 19:56 Dose: 400 mg Documented by: ELIDIA Vital Signs Vital signs: Vital Signs - 8 hr 05/23/19 16:10 05/23/19 20:29 05/23/19 20:33 Temperature 97.7 F Pulse Rate 83 78 83 Respiratory Rate 20 18 18 Blood Pressure 161/77 H Blood Pressure [Right Arm] 188/87 H Pulse Oximetry 98 95 96 MDM - Extremity (Nontraumatic) <TRESSA Ruiz - Last Filed: 05/23/19 22:24> Differential Diagnosis Differential diagnosis: Likely cellulitis, lower extremity edema, deep vein thrombosis of lower extremity and other (Venous stasis, lymphadema, venous insufficiency, CHF) Medical Records Attestation: I reviewed the patient's medical records. Lab Data Attestation: I reviewed the patient's lab results. Result diagrams: 05/23/19 19:26 05/23/19 19:26 Labs: Lab Results 05/23/19 05/23/19 Range/Units 19:26 19:26 WBC 10.6 (4.5-11.0) X10^3/uL RBC 3.93 L (4.0-5.2) X10^6/uL Hgb 11.7 L (12.0-16.0) g/dL Hct 35.1 L (36-46) % MCV 89.4 (80-100) fL MCH 29.7 (26-34) PG MCHC 33.2 (30-36) % RDW 14.2 (11.6-14.8) % Plt Count 291 (150-400) X10^3/uL Neut % (Auto) 72.9 (50-75) % Lymph % (Auto) 20.0 L (25-40) % [place] % (Auto) 4.3 (3-14) % Eos % (Auto) 2.3 (2-4) % Baso % (Auto) 0.5 (0-2) % Neut # (Auto) 7700 H (4560-0822) /uL Lymph # (Auto) 2100 (1142-0229) /uL [place] # (Auto) 500 (0-900) /uL Eos # (Auto) 200 (0-450) /uL Baso # (Auto) 100 (0-100) /uL Sodium 142 (137-145) mmol/L Potassium 4.0 (3.4-5.1) mmol/L Chloride 104 (98-107) mmol/L Carbon Dioxide 32 (22-32) mmol/L BUN 13 (7-17) mg/dL Creatinine 0.70 (0.52-1.04) mg/dL Estimated GFR > 60.0 (>60) mL/min BUN/Creatinine Ratio 18.6 (6-22) Glucose 92 (80-110) mg/dL Calcium 9.0 (8.4-10.2) mg/dL Total Bilirubin 0.5 (0.2-1.3) mg/dL AST 44 H (14-36) IU/L ALT 38 H (<35) IU/L Alkaline Phosphatase 88 (38-126) U/L NT-Pro-B Natriuret Pep 133 H (<125) pg/mL Total Protein 7.3 (6.3-8.2) g/dL Albumin 3.9 (3.5-5.0) g/dL Globulin 3.4 (1.7-4.1) g/dL Albumin/Globulin Ratio 1.1 (1.0-2.8) MDM Narrative Medical decision making narrative: This is 63-year-old female who takes daily La six for bilateral leg swelling who was in ED about a week ago with similar symptoms and was treated with doxycycline for cellulitis coverage and increased Lasix dose for her symptoms. Patient reports she had not taken today b.i.d. dose of Lasix in anticipation not being able to use restroom. Patient here for evaluation whether she needs additional course of antibiotic medication. It is unlikely patient has cellulitis. Given she just completed doxycycline course. Bilateral legs were in rubra collar without clear demarcation, hot to touch and patient was afebrile. There was no leukocytosis. BNP was drawn with very mild elevation given patient had not taken Lasix today, it is unlikely this is the cause for her symptoms. Patient also did not have chest pain, breathing difficulty. This unlikely patient has DVT since her symptoms are in bilateral lower extremity, the Wells' criteria for DVT score was -1. Her physical exam is more likely venous stasis, venous insufficiency, dependent leg edema. Patient reports she is not wearing any compression stockings at this time. Patient adv ised to follow-up with her primary care physician and discuss the possibility of getting an order or a referral to medical supply/equipment store to get compression stocking fitted. Patient advised to elevated legs during rest. She was medicated with her routine dose of Lasix 20 mg while in ED and patient refused to take another 20 mg at this time. Patient advised not to skip her Lasix dose since this will help the leg swelling and discomfort. Return precautions were discussed with the patient and patient verbalized understanding and in agreement with the treatment plan. <Michael Lopez, - Last Filed: 05/24/19 05:39> Lab Data Labs: Lab Results 05/23/19 05/23/19 Range/Units 19:26 19:26 WBC 10.6 (4.5-11.0) X10^3/uL RBC 3.93 L (4.0-5.2) X10^6/uL Hgb 11.7 L (12.0-16.0) g/dL Hct 35.1 L (36-46) % MCV 89.4 (80-100) fL MCH 29.7 (26-34) PG MCHC 33.2 (30-36) % RDW 14.2 (11.6-14.8) % Plt Count 291 (150-400) X10^3/uL Neut % (Auto) 72.9 (50-75) % Lymph % (Auto) 20.0 L (25-40) % [place] % (Auto) 4.3 (3-14) % Eos % (Auto) 2.3 (2-4) % Baso % (Auto) 0.5 (0-2) % Neut # (Auto) 7700 H (6571-9861) /uL Lymph # (Auto) 2100 (9287-9998) /uL [place] # (Auto) 500 (0-900) /uL Eos # (Auto) 200 (0-450) /uL Baso # (Auto) 100 (0-100) /uL Sodium 142 (137-145) mmol/L Potassium 4.0 (3.4-5.1) mmol/L Chloride 104 (98-107) mmol/L Carbon Dioxide 32 (22-32) mmol/L BUN 13 (7-17) mg/dL Creatinine 0.70 (0.52-1.04) mg/dL Estimated GFR > 60.0 (>60) mL/min BUN/Creatinine Ratio 18.6 (6-22) Glucose 92 (80-110) mg/dL Calcium 9.0 (8.4-10.2) mg/dL Total Bilirubin 0.5 (0.2-1.3) mg/dL AST 44 H (14-36) IU/L ALT 38 H (<35) IU/L Alkaline Phosphatase 88 (38-126) U/L NT-Pro-B Natriuret Pep 133 H (<125) pg/mL Total Protein 7.3 (6.3-8.2) g/dL Albumin 3.9 (3.5-5.0) g/dL Globulin 3.4 (1.7-4.1) g/dL Albumin/Globulin Ratio 1.1 (1.0-2.8) Discharge Plan Departure Patient Disposition: Home Clinical Impression: Edema of lower extremity due to peripheral venous insufficiency Discharge Date/Time: 05/23/19 20:33 Instructions: DI for Edema Due to Venous Stasis, DI for Peripheral Edema -- Bilateral Activity Restrictions/Additional Instructions: You have been diagnosed with [bilateral leg swelling it is likely due to venous insufficiency. Please take your water pill as scheduled and do not skip it. This will help getting rid of extra fluid in your legs. Your blood tests were unremarkable today for indication for infection and heart failure and water retention]. What to do: *Take your medications as directed. *Follow up with your primary care provider in 2-3 days, call for an appointment. Let them know you were seen in the ED and that we asked you to be seen in follow up. *Return to ED if you have any new, worsening, or concerning symptoms, such as [chest pain, breathing difficulty, fever, chills, unable to tolerate fluids, increasing redness/warmth/swelling on her bilateral legs or any acute concerns]. Prescriptions: No Action metformin [Glucophage] 1,000 mg tablet 1,000 mg PO BIDCC Qty: 180 RF: 3 Novolog U-100 Insulin aspart 100 unit/mL solution 30 unit SUBCUT QAC Qty: 3 RF: 11 (DME) Glucose: Test Strips 0 .Route .MEDSUPPLY Qty: 100 RF: 11 Lantus U-100 Insulin 100 unit/mL solution 80 unit SUBCUT BID Qty: 10 RF: 11 (DME) Syringes: Ultra Fine Insulin Syringe w/Needle 0 .Route .MEDSUPPLY Qty: 100 RF: 11 gabapentin 300 mg capsule 600 mg PO TID Qty: 180 RF: 1 omeprazole 40 mg capsule,delayed release(DR/EC) 40 mg PO DAILY Qty: 90 RF: 0 atorvastatin [Lipitor] 40 mg tablet 40 mg PO BEDTIME Qty: 90 RF: 3 meloxicam [Mobic] 7.5 mg tablet 7.5 mg PO BIDCC Qty: 180 RF: 3 oxycodone-acetaminophen 5-325 mg tablet 1 tab PO BID PRN (Reason: pain) Qty: 60 RF: 0 metoprolol succinate 200 mg tablet extended release 24 hr 200 mg PO DAILY Qty: 90 RF: 3 (DME) Glucose: Home Monitoring Kit 0 .Route .MEDSUPPLY Qty: 1 RF: 0 diltiazem HCl 120 mg capsule,extended release 12 hr 120 mg PO BID Qty: 60 RF: 0 furosemide [Lasix] 20 mg tablet 20 mg PO DAILY 14 Days Qty: 14 RF: 0 furosemide [Lasix] 20 mg tablet 20 mg PO DAILY RF: 0 lisinopril 40 mg tablet 40 mg PO QNOON RF: 0 Referrals: Florin Patel MD [Primary Care Provider] -
[2019-05-23 20:29] VITALS: BP 188/87; PULSE 78; RESP 18; O2SAT 95
[2019-05-23 20:33] VITALS: PULSE 83; RESP 18; O2SAT 96
== END 2019-05-23 20:33 | disposition home or self-care (01) ==
PROVIDERS: Emergency Provider Nurse Practitioner Family; PCP Student in an Organized Health Care Education/Training Program
DX: I87.2 Venous insufficiency (chronic) (peripheral) (principal); R60.9 Edema, unspecified
CPT/HCPCS: 36415; 80053; 83880; 85025; 99283

== ENCOUNTER → 2019-07-27 12:36 | Outpatient (CLI) | payer OTHER, SELFPAY ==
[2018-04-21 00:54] VITALS: BMI 51.5
--- NOTE | 2019-07-27 12:39 | DI.US.S_ITS ---
PROCEDURE: US PERIP VENOUS LOW EXTREM LT INDICATIONS: LT LEG SWELLING TECHNIQUE: Real-time imaging, as well as color and pulse Doppler interrogation, were performed of the lower extremity deep veins from the inguinal ligament to the popliteal fossa. COMPARISON: [facility], PERIP.PRAVEEN EXT BILAT, 08/15/2016, 22:37. [facility], PVE UNILATERAL LEFT, 06/11/2014, 0:39. FINDINGS: The common femoral, femoral and popliteal veins are normally compressible, and free of intraluminal thrombus. Color and pulse Doppler demonstrate normal phasic intraluminal flow. There is normal augmentation response to distal compression maneuver. This study is limited by body habitus. IMPRESSION: Negative for deep venous thrombosis. Dictated by: Rio Jackson M.D. on 07/27/2019 at 13:04 Approved by: Rio Jackson M.D. on 07/27/2019 at 13:05
== END ==
PROVIDERS: PCP Student in an Organized Health Care Education/Training Program; Referring Provider Student in an Organized Health Care Education/Training Program; Visit Provider Student in an Organized Health Care Education/Training Program
DX: M79.89 Other specified soft tissue disorders (principal)
CPT/HCPCS: 93971

== ENCOUNTER → 2020-03-30 10:44 | Outpatient (CLI) | payer OTHER, SELFPAY ==
[2018-04-21 00:54] VITALS: BMI 51.5
[2020-03-30 11:48] LABS: Appearance Urine UA CLEAR; Bilirubin Urine UA NEGATIVE (NEGATIVE); Color Urine UA YELLOW; Glucose Urine UA TRACE g/dL (Negative); Ketones Urine UA NEGATIVE (NEGATIVE); Leukocyte Esterase Urine UA 2+ (NEGATIVE); Nitrite Urine UA POSITIVE (Negative); Occult Blood Urine UA 3+ (Negative); Protein Urine UA TRACE (Negative); Specific Gravity Urine UA 1.015 (1.000-1.035); Urobilinogen Urine UA 0.2 E.U./dL (0.2)
[2020-03-30 11:58] LABS: Bacteria Urine Moderate (10-30); Culture Indicated Urine Specimen Cultured; RBC Urine 10-30/HPF (0-5/HPF); Squamous Epithelial Cell Urine 0-1 /HPF (0-5/HPF); WBC Urine 10-30/HPF (0-5/HPF)
== END ==
PROVIDERS: PCP Student in an Organized Health Care Education/Training Program; Referring Provider Student in an Organized Health Care Education/Training Program; Visit Provider Student in an Organized Health Care Education/Training Program
DX: R30.0 Dysuria (principal)
CPT/HCPCS: 81001; 87077; 87086; 87186

== ENCOUNTER → 2020-05-03 14:03 | Outpatient (CLI) | payer OTHER, SELFPAY ==
[2018-04-21 00:54] VITALS: BMI 51.5
== END ==
PROVIDERS: PCP Student in an Organized Health Care Education/Training Program; Visit Provider Nurse Practitioner
DX: N34.3 Urethral syndrome, unspecified (principal)
CPT/HCPCS: 87086

== ENCOUNTER 2020-09-25 05:21 | Emergency (ER) | payer OTHER, SELFPAY ==
[2018-04-21 00:54] VITALS: BMI 51.5
[2020-09-25 05:40] VITALS: BP 196/93; PULSE 64; RESP 18; TEMP 36; O2SAT 95; BMI 56.5
--- NOTE | 2020-09-25 06:31 | ED_ITS ---
HPI - Extremity Injury (Lower) General Chief Complaint: Extremity Problem,Nontraumatic Stated Complaint: left leg pain for over a week Time Seen by Provider: 09/25/20 05:32 Source: patient Mode of arrival: Ambulatory Limitations: no limitations History of Present Illness HPI Narrative: Patient is a 65-year-old female is with history of lower extremity edema hyperlipidemia hypertension is congestive heart failure p resenting with left medial thigh burning. She says it was so bad she was unable to sleep. It comes and goes. She denies any pelvic pain or injury. She does have larger legs and has increased her Lasix over the last few days is because she has noticed it however last night it was much worse. No fever or chills. She says that she suffers from urinary continence and testing keep herself is clean and she can cut she is quite embarrassed by it. She denies any fever or chills. She took Percocet at home for pain she says only helped a little bit. Related Data Home Medications Medication Instructions Recorded Confirmed lisinopril 40 mg PO QNOON 11/04/18 09/14/20 Previous Rx's Medication Instructions Recorded Glucose: Home Monitoring Kit #1 device 04/29/18 Glucose: Test Strips #100 each 12/16/18 omeprazole 40 mg capsule,delayed 40 mg PO DAILY #90 cap 12/21/18 release meloxicam 7.5 mg tablet 7.5 mg PO BIDCC #180 tab 01/19/19 ketoconazole 2 % topical cream 1 applictn TOP BID #60 gram 12/22/19 diltiazem HCl 120 mg 120 mg PO BID #180 cap 01/26/20 capsule,extended release 12 hr metformin 1,000 mg tablet 1,000 mg PO BIDCC #180 tab 02/03/20 insulin syringe-needle U-100 1 mL See Rx Instructions .ROUTE 04/05/20 31 gauge x 08/20 .COMPLEX #100 ea furosemide 20 mg tablet 20 mg PO DAILY #90 tab 07/03/20 metoprolol succinate 200 mg 200 mg PO DAILY #90 tab 07/03/20 tablet,extended release 24 hr gabapentin 300 mg capsule 300 mg PO BID #180 cap 07/20/20 atorvastatin 40 mg tablet 40 mg PO BEDTIME #90 tab 07/25/20 oxycodone-acetaminophen 5 mg-325 1 tab PO BID PRN #60 tab 08/28/20 mg tablet insulin glargine 100 unit/mL 80 unit SUBCUT BID #50 ml 08/29/20 subcutaneous solution insulin regular human 100 unit/mL See Rx Instructions .ROUTE 09/01/20 injection solution .COMPLEX #30 milliliter fluconazole 150 mg tablet 150 mg PO Q3D #2 tab 09/14/20 nystatin 100,000 unit/gram topical 1 applic TOP DAILY #30 gram 09/15/20 powder Allergies Allergy/AdvReac Type Severity Reaction Status Date / Time No Known Drug Allergies Allergy Verified 05/03/20 14:33 Review of Systems Review of Systems Narrative: GENERAL: Denies chills, fatigue, malaise, fever, sweats, travel HEENT: Denies sinus pain, ear pain, sore throat, difficulty swallowing, neck pain RESPIRATORY: Denies dyspnea, cough, wheezing, hemoptysis, sputum. CARDIOVASCULAR: Denies chest pain, palpitations, orthopnea, edema GASTROINTESTINAL: Denies nausea, vomiting, abdominal pain, diarrhea, constipation, melena. : Denies dysuria, frequency, incontinence, hematuria, urinary retention, flank pain. MUSCULOSKELETAL: Denies weakness, joint pain, or bony pain SKIN: No rash, no erythema, no pruritus NEUROLOGIC: Burning sensation left medial thigh Denies weakness, dizziness, headache, numbness, change in speech, confusion PSYCHIATRIC: No concerning psychosocial issues. 12 point review of systems is negative except for those stated above and HPI Patient History Medical History Congestive heart failure Diabetes mellitus Heart disease Hypertension Morbid obesity with BMI of 50.0-59.9, adult Osteoarthritis Peripheral neuropathy Sleep apnea Urinary incontinence Surgical History History of cholecystectomy History of hysterectomy History of knee replacement (01/2015) Family History Mother Alcohol abuse Skin cancer Father Heart attack Social History household members: family and children Smoking Status: Never smoker Smoking Status: Never smoker alcohol intake frequency: 0-2 drinks per day Substance Use Type: does not use Exam Initial Vital Signs Initial Vital Signs: Vital Signs Temperature 96.8 F L 09/25/20 05:40 Pulse Rate 64 06/21/21 05:40 Respiratory Rate 18 09/25/20 05:40 Blood Pressure 196/93 H 09/25/20 05:40 Pulse Oximetry 95 09/25/20 05:40 GENERAL: Alert 65-year-old female with BMI of 56 HEENT: Head atraumatic,EOMI, pupils reactive, face symmetric, [moist] mucous membranes CARDIOVASCULAR: Regular rate and rhythm without murmurs, rubs or gallops. RESPIRATORY: Breath sounds equal bilaterally, no wheezes rales or rhonchi. ABDOMEN: Soft, nontender. Normoactive bowel sounds all 4 quadrants. No guarding or rebound. EXTREMITIES: Normal range of motion, no clubbing or edema. Neurovascularly intact NEUROLOGICAL: Alert and oriented x4.Normal gait and speech. SKIN: Lower extremities over large with inter Mitten erythema she says that that is always there. Is not any worse than normal. I did look in her left medial thigh no rash or vesicles noted. Course Orders Ordered: Discontinued Medications Ketorolac Tromethamine (Ketorolac 30 Mg/Ml Vial) 30 mg IM NOW ONE Stop: 09/25/20 06:25 Last Admin: 09/25/20 06:32 Dose: 30 mg Documented by: ROSA Vital Signs Vital signs: Vital Signs - 8 hr 09/25/20 05:40 Temperature 96.8 F L Pulse Rate 64 Respiratory Rate 18 Blood Pressure 196/93 H Pulse Oximetry 95 MDM - Extremity Injury (Lower) MDM Narrative Medical decision making narrative: Patient is describing burning which is likely neuropathic pain. Possible shingles. However no vesicles are seen yet. She thinks that she has had shingles in the past. She denies any fevers chills she is given Toradol. She has Percocet at home of. She is not having any shortness of breath or fever nothing to suggest CHF is exacerbation. She has not had any injury or fall no indication for imaging. Discharge Plan Departure Patient Disposition: Home Clinical Impression: Nerve pain Instructions: Neuropathic Pain Activity Restrictions/Additional Instructions: *You have been diagnosed with nerve pain *What to do: At this time I am unsure exactly what is causing your pain. However please continue to look and monitor closely for any new rash. At this time I do not think you need antibiotics or x-ray *Continue to take medications as directed Ibuprofen 400 mg every 6-8 hours if needed for pain *Follow up with your primary care provider in 2-3 days *Return to ER if you should have pain inability to walk, or any new, worsening or concerning symptoms Prescriptions: No Action fluconazole 150 mg tablet 150 mg PO Q3D Qty: 2 RF: 0 (DME) Glucose: Test Strips 0 .Route .MEDSUPPLY Qty: 100 RF: 11 omeprazole 40 mg capsule,delayed release(DR/EC) 40 mg PO DAILY Qty: 90 RF: 0 meloxicam [Mobic] 7.5 mg tablet 7.5 mg PO BIDCC Qty: 180 RF: 3 diltiazem HCl 120 mg capsule,extended release 12 hr 120 mg PO BID Qty: 180 RF: 3 metformin [Glucophage] 1,000 mg tablet 1,000 mg PO BIDCC Qty: 180 RF: 1 insulin syringe-needle U-100 [BD Insulin Syringe Ultra-Fine] 1 mL 31 gauge x 5/16 syringe See Rx Instructions .ROUTE .COMPLEX Qty: 100 RF: 3 metoprolol succinate 200 mg tablet extended release 24 hr 200 mg PO DAILY Qty: 90 RF: 3 furosemide [Lasix] 20 mg tablet 20 mg PO DAILY Qty: 90 RF: 1 gabapentin 300 mg capsule 300 mg PO BID Qty: 180 RF: 3 atorvastatin [Lipitor] 40 mg tablet 40 mg PO BEDTIME Qty: 90 RF: 2 oxycodone-acetaminophen 5-325 mg tablet 1 tab PO BID PRN (Reason: pain) Qty: 60 RF: 0 Lantus U-100 Insulin 100 unit/mL solution 80 unit SUBCUT BID Qty: 50 RF: 2 insulin regular human [Humulin R Regular U-100 Insuln] 100 unit/mL solution See Rx Instructions .ROUTE .COMPLEX Qty: 30 RF: 10 nystatin 100,000 unit/gram powder 1 applic TOP DAILY Qty: 30 RF: 0 (DME) Glucose: Home Monitoring Kit 0 .Route .MEDSUPPLY Qty: 1 RF: 0 ketoconazole 2 % cream 1 applictn TOP BID Qty: 60 RF: 0 lisinopril 40 mg tablet 40 mg PO QNOON RF: 0 Referrals: Florin Patel MD [Primary Care Provider] -
[2020-09-25] MEDS: KETOROLAC 30 MG/ML VIAL IM (06:32)
== END 2020-09-25 06:54 | disposition home or self-care (01) ==
PROVIDERS: Emergency Provider Emergency Medicine; PCP Student in an Organized Health Care Education/Training Program
DX: M79.2 Neuralgia and neuritis, unspecified (principal); R32 Unspecified urinary incontinence
CPT/HCPCS: 96372; 99283; J1885

== ENCOUNTER → 2020-10-17 14:34 | Outpatient (CLI) | payer OTHER, SELFPAY ==
[2018-04-21 00:54] VITALS: BMI 51.5
--- NOTE | 2020-10-17 14:36 | DI.RAD.S_ITS ---
PROCEDURE: XR FOOT LT MIN 3V INDICATIONS: swollen LT FOOT TECHNIQUE: 3 views of the foot were acquired. COMPARISON: None. FINDINGS: Bones: No fractures or dislocations. No suspicious bony lesions. No periosteal reaction. No osseous erosive changes. Small calcaneal bone spurs. Soft tissues: No tibiotalar joint effusion. Achilles tendon appears normal. Soft tissue swelling noted. No soft tissue gas. IMPRESSION: 1. No jacki evidence of osteomyelitis. Plain film radiographs can be insensitive to osteomyelitis during the initial 15 days of the disease process. If there is clinical concern for osteomyelitis, then three-phase nuclear medicine bone scan should be considered for further evaluation. 2. Nonspecific soft tissue swelling. Infectious cellulitis cannot be excluded. Dictated by: Farida Cooper MD, PhD on 10/17/2020 at 16:41 Approved by: Farida Cooper MD, PhD on 10/17/2020 at 16:42
== END ==
PROVIDERS: PCP Student in an Organized Health Care Education/Training Program; Referring Provider Physician Assistant; Visit Provider Physician Assistant
DX: B99.9 Unspecified infectious disease (principal); M79.89 Other specified soft tissue disorders
CPT/HCPCS: 73630

== ENCOUNTER → 2020-11-23 07:57 | Outpatient (CLI) | payer OTHER, SELFPAY ==
[2018-04-21 00:54] VITALS: BMI 51.5
--- NOTE | 2020-11-23 | DI.ECHO.S_ITS ---
[facility] +---------+ : : [address] : : : : [id number] : : : : Phone: [phone]---------+ Echocardiogram Report + + :Name: ROSE MARIE LIZARRAGA Study Date: 11/23/2020 Height: 65 in : :[facility] ReadingLocation: Weight: 344 lb : : Gender: Female BSA: 2.5 m2 : :: 1955 Age: 65 yrs BP: 162/86 mmHg: :Reason For Study: HYPERTENSION : :Ordering Physician: CAMERON, : :JEANETTE Performed By: Donita Soto : :Referring: JEANETTE OSULLIVAN : + + Interpretation Summary The ejection fraction is estimated to be 60-65%. The mitral valve leaflets appear mildly thickened, but open well. There is mild mitral annular calcification. The ascending aorta is mildly enlarged. Procedure: A two-dimensional transthoracic echocardiogram with color flow and Doppler was performed. The study quality was technically adequate. Comparison is made with the echocardiogram of 06/19/2016. The patient was in sinus rhythm with heart rates between 59-68 bpm during the exam. Left Ventricle: The left ventricle is normal in size. There is mild concentric left ventricular hypertrophy. The ejection fraction is estimated to be 60-65%. Left ventricular wall motion is normal. Right Ventricle: The right ventricle is mildly dilated. The right ventricular systolic function is normal. Mitral Valve: The mitral valve leaflets appear mildly thickened, but open well. There is mild mitral annular calcification. There is no mitral regurgitation noted. Aortic Valve: The aortic valve opens well. There is no aortic valve stenosis. No aortic regurgitation is present. Tricuspid Valve: The tricuspid valve is normal in structure and function. There is trace tricuspid regurgitation. Pulmonic Valve: The pulmonic valve is not well seen, but is grossly normal. There is no pulmonic valvular regurgitation. Great Vessels: The aortic root is normal size. The ascending aorta is mildly enlarged. The inferior vena cava was not visualized. Pericardium/ Pleura There is no pericardial effusion. There is no pleural effusion. MMode/2D Measurements & Calculations LVIDd: 4.5 cm LVOT diam: 2.0 cm LVIDs: 2.6 cm Ao root diam: 3.6 cm FS: 42.9 % asc Aorta Diam: 3.5 cm IVSd: 1.2 cm LVPWd: 1.1 cm LV santos. diameter/BSA (cm/m^2): 1.8 LV sys. diameter/BSA (cm/m^2): 1.0 LA A2 area: 21.1 cm2 RA long axis: 5.4 cm LA A4 area: 23.6 cm2 RA area: 18.1 cm2 LA length (vol): 5.3 cm RA vol: 51.3 ml LA vol: 80.3 ml RA : 20.6 ml/m2 LA vol index: 32.3 ml/m2 RVD1 (basal): 4.3 cm TAPSE: 2.2 cm Doppler Measurements & Calculations Ao V2 max: 163.1 cm/sec LVOT Max Alli: 94.0 cm/sec Ao V2 mean: 107.5 cm/sec LV V1 max P.5 mmHg Ao max P.6 mmHg LV V1 VTI: 24.8 cm Ao mean P.4 mmHg ANA(I,D): 2.1 cm2 Ao V2 VTI: 38.5 cm ANA(V,D): 1.9 cm2 sev ratio: 0.65 ANA indexed to BSA (cm^2/m^2): 0.83 MV E max alli: 134.6 cm/sec PA V2 max: 106.9 cm/sec MV A max alli: 135.8 cm/sec PA V2 mean: 82.3 cm/sec MV E/A: 0.99 PA mean P.9 mmHg Med Peak E' Alli: 5.0 cm/sec PA pr(Accel): 34.5 mmHg E/E' med: 26.8 Lat Peak E' Alli: 7.3 cm/sec E/E' lat: 18.5 E/e' average: 22.7 MV dec time: 0.29 sec MVA(VTI): 1.5 cm2 MV V2 mean: 92.6 cm/sec SV(LVOT): 79.9 ml MV mean P.9 mmHg MV V2 VTI: 51.8 cm Reading Physician:08:57 AM
== END ==
PROVIDERS: PCP Student in an Organized Health Care Education/Training Program; Referring Provider Internal Medicine Cardiovascular Disease; Visit Provider Internal Medicine Cardiovascular Disease
DX: I77.89 Other specified disorders of arteries and arterioles (principal); I10 Essential (primary) hypertension; K21.9 Gastro-esophageal reflux disease without esophagitis; E08.00 Diabetes mellitus due to underlying condition with hyperosmolarity without nonketotic hyperglycemic-hyperosmolar coma (NKHHC); R60.9 Edema, unspecified
CPT/HCPCS: 93306

== ENCOUNTER → 2020-12-15 17:48 | Outpatient (CLI) | payer OTHER, SELFPAY ==
[2018-04-21 00:54] VITALS: BMI 51.5
--- NOTE | 2020-12-15 17:48 | DI.MG.S_ITS ---
BILATERAL DIGITAL SCREENING MAMMOGRAM 3D/2D WITH CAD: 12/15/2020 Comparison is made to exams dated: 09/11/2018 mammogram, 05/13/2017 mammogram, 04/22/2016 [facility], 06/05/2009 mammogram, and 11/19/2007 mammogram - [facility]. The tissue of both breasts is heterogeneously dense. This may lower the sensitivity of mammography. Current study was also evaluated with a Computer Aided Detection (CAD) system. There are benign vascular calcifications in both breasts. No significant masses, calcifications, or other findings are seen in either breast. There has been no significant interval change. IMPRESSION: BENIGN There is no mammographic evidence of malignancy. A 1 year screening mammogram is recommended. This exam was interpreted at Station ID: [id number]. NOTE: For mammograms, a report in lay terms will be sent to the patient. Approximately 15% of breast malignancies will not be visualized mammographically. In the management of a palpable breast mass, a negative mammogram must not discourage biopsy of a clinically suspicious lesion. Electronically Signed By: Marc Hill acr/penrad:12/25/2020 14:09:40 letter sent: Normal Exam ACR BI-RADS Category 2: Benign Finding(s) [id number]
== END ==
PROVIDERS: PCP Student in an Organized Health Care Education/Training Program; Referring Provider Student in an Organized Health Care Education/Training Program; Visit Provider Student in an Organized Health Care Education/Training Program
DX: Z12.31 Encounter for screening mammogram for malignant neoplasm of breast (principal)
CPT/HCPCS: 77063; 77066; 77067; G0279

== ENCOUNTER 2021-01-27 13:36 | Emergency (ER) | payer OTHER, SELFPAY ==
[2018-04-21 00:54] VITALS: BMI 51.5
[2021-01-27 14:20] VITALS: BP 172/76; PULSE 59; RESP 24; TEMP 36.2; O2SAT 100; BMI 55.5
--- NOTE | 2021-01-27 14:49 | DI.US.S_ITS ---
PROCEDURE: US PERIP VENOUS LOW EXTREM BI INDICATIONS: PAIN, EDEMA TECHNIQUE: Real-time imaging, as well as color and pulse Doppler interrogation, were performed of the deep veins of both legs from the inguinal ligament to the popliteal fossa. COMPARISON: [facility], , [facility].PRAVEEN EXT BILAT, 08/15/2016, 22:37. [facility], , US PERIP VENOUS LOW EXTREM LT, 07/27/2019, 13:05. FINDINGS: Right: The common femoral, femoral and popliteal veins are normally compressible, and free of intraluminal thrombus. Color and pulse Doppler demonstrate normal phasic intravascular flow. There is normal augmentation response to distal compression maneuver. Left: The common femoral, femoral and popliteal veins are normally compressible, and free of intraluminal thrombus. Color and pulse Doppler demonstrate normal phasic intravascular flow. There is normal augmentation response to distal compression maneuver. This study is limited by body habitus. IMPRESSION: Negative for deep venous thrombosis. Dictated by: Rio Jackson M.D. on 01/27/2021 at 16:30 Approved by: Rio Jackson M.D. on 01/27/2021 at 16:32
--- NOTE | 2021-01-27 17:08 | ED.EXTPRO ---
HPI - Extremity Problem <Reji Caban PA-C - Last Filed: 01/27/21 19:31> General Chief complaint: Extremity Problem,Nontraumatic Stated complaint: Poss blood clot in left leg Time Seen by Provider: 01/27/21 16:15 Source: patient Mode of arrival: Wheelchair Limitations: no limitations History of Present Illness HPI Narrative: Patient is a 65-year-old female that presents to the emergency department today for an evaluation bilateral lower extremity swelling that began 3 days ago. Patient states that the swelling in her legs bilaterally has worsened since onset, and she notes pain in her left leg that is worsened with movement and activity. Additionally she reports experiencing numbness and tingling in the left lower extremity. She denies fever, chills, chest pain, shortness of breath, cough, abdominal pain, nausea, vomiting, diarrhea, constipation. Patient denies any recent changes in medications. No other complaints reported at this time. Related Data Home Medications Medication Instructions Recorded Confirmed lisinopril 40 mg tablet 40 mg PO QNOON 11/04/18 10/31/20 Previous Rx's Medication Instructions Recorded Glucose: Home Monitoring Kit #1 device 04/29/18 Glucose: Test Strips #100 each 12/16/18 ketoconazole 2 % topical cream 1 applictn TOP BID #60 gram 12/22/19 metformin 1,000 mg tablet 1,000 mg PO BIDCC #180 tab 02/03/20 (Glucophage) insulin syringe-needle U-100 1 mL See Rx Instructions .ROUTE 04/05/20 31 gauge x 5/16 (BD Insulin .COMPLEX #100 ea Syringe Ultra-Fine) furosemide 20 mg tablet (Lasix) 20 mg PO DAILY #90 tab 07/03/20 metoprolol succinate 200 mg 200 mg PO DAILY #90 tab 07/03/20 tablet,extended release 24 hr gabapentin 300 mg capsule 300 mg PO BID #180 cap 07/20/20 atorvastatin 40 mg tablet (Lipitor) 40 mg PO BEDTIME #90 tab 07/25/20 insulin glargine 100 unit/mL 80 unit SUBCUT BID #50 ml 08/29/20 subcutaneous solution (Lantus U-100 Insulin) insulin regular human 100 unit/mL See Rx Instructions .ROUTE 09/01/20 injection solution (Humulin R .COMPLEX #30 milliliter Regular U-100 Insulin) fluconazole 150 mg tablet 150 mg PO Q3D #2 tab 09/14/20 omeprazole 40 mg capsule,delayed 40 mg PO DAILY #90 cap 09/28/20 release meloxicam 7.5 mg tablet (Mobic) 7.5 mg PO BIDCC #180 tab 10/10/20 fluoxetine 20 mg capsule 20 mg PO DAILY #30 cap 10/31/20 nystatin 100,000 unit/gram topical 1 applic TOP DAILY #30 gram 10/31/20 powder diltiazem HCl 120 mg 120 mg PO BID #180 cap 01/17/21 capsule,extended release 12 hr oxycodone-acetaminophen 5 mg-325 1 tab PO BID PRN #30 tab 01/25/21 mg tablet Allergies Allergy/AdvReac Type Severity Reaction Status Date / Time No Known Drug Allergies Allergy Verified 01/27/21 14:20 Review of Systems <Reji Caban PA-C - Last Filed: 01/27/21 19:31> Constitutional Constitutional: Denies chills, Denies fever(s), Denies lethargy and Denies weakness Cardiovascular Cardiovascular: Denies chest pain, Denies irregular heart rhythm, Denies lightheadedness, Denies palpitations, Denies dyspnea, Denies dyspnea on exertion and Denies orthopnea Respiratory Respiratory: Denies cough, Denies dyspnea, Denies dyspnea on exertion and Denies wheezing Gastrointestinal Gastrointestinal: Denies abdominal pain, Denies change in bowel habits, Denies diarrhea, Denies nausea and Denies vomiting Musculoskeletal Comments: Bilateral lower extremity swelling. Pain in the left lower extremity. Integumentary/Breasts Skin/Breast: Denies pruritus, Denies erythema, Denies rash and Denies wounds Neurologic Neurologic: Denies weakness Endocrine Endocrine: Denies palpitations Allergic/Immunologic Allergic/Immunologic: Denies wheezing Patient History <Reji Caban PA-C - Last Filed: 01/27/21 19:31> Medical History Congestive heart failure Diabetes mellitus Heart disease Hypertension Morbid obesity with BMI of 50.0-59.9, adult Osteoarthritis Peripheral neuropathy Sleep apnea Urinary incontinence Surgical History History of cholecystectomy History of hysterectomy History of knee replacement (01/2015) Family History Mother Alcohol abuse Skin cancer Father Heart attack Social History household members: family and children Smoking Status: Never smoker Smoking Status: Never smoker alcohol intake frequency: 0-2 drinks per day Substance Use Type: does not use Exam <Reji Caban PA-C - Last Filed: 01/27/21 19:31> Narrative Exam Narrative: GENERAL: 65 year old patient appears stated age. Well-developed patient, in mild distress. HEAD: Atraumatic. Normocephalic. EYES: Pupils equal round and reactive. Extraocular motions intact. No scleral icterus. No injection or drainage. ENT: Nose without bleeding, purulent drainage. Throat without erythema, tonsillar hypertrophy or exudate. Airway patent. NECK: Trachea midline. Non tender CARDIOVASCULAR: Regular rate and rhythm without murmurs, gallops, or rubs. RESPIRATORY: Clear to auscultation. Breath sounds equal bilaterally. No wheezes, rales, or rhonchi. GASTROINTESTINAL: Abdomen soft, non-tender, nondistended. EXTREMITIES: Pitting edema noted throughout the bilateral upper extremities. Tenderness to palpation appreciated along the length of the left leg. Pain with dorsiflexion against resistance in the left lower extremity. BACK: Nontender without deformity or crepitance. No flank tenderness. NEURO: AOx3. SKIN: No rash or erythema of visible areas Initial Vital Signs Initial Vital Signs: Vital Signs Temperature 97.1 F L 01/27/21 14:20 Pulse Rate 59 L 01/27/21 14:20 Respiratory Rate 24 01/27/21 14:20 Blood Pressure 172/76 H 01/27/21 14:20 Pulse Oximetry 100 01/27/21 14:20 Cardio Pulses: dorsalis pedis present bilaterally <Michael Lopez DO - Last Filed: 01/28/21 08:35> Initial Vital Signs Initial Vital Signs: Vital Signs Temperature 97.1 F L 01/27/21 14:20 Pulse Rate 59 L 01/27/21 14:20 Respiratory Rate 24 01/27/21 14:20 Blood Pressure 172/76 H 01/27/21 14:20 Pulse Oximetry 100 01/27/21 14:20 Course <Reji Caban PA-C - Last Filed: 01/27/21 19:31> Course Course Narrative: Patient is a 65-year-old female that presents to the emergency department today for an evaluation bilateral lower extremity swelling that began 3 days ago. Ordered lower extremity ultrasound, chest x-ray, CBC, BNP, CMP. Orders Ordered: ED Orders 01/27/21 14:49 US periph venous low extrem bi Stat 01/27/21 17:27 XR chest 2V Stat Complete Blood Count AUTO DIFF Stat Comprehensive Metabolic Panel Stat NT-proBNP (BNP-Adult 18+) Stat 01/27/21 18:35 Urinalysis and Microscopic Stat Vital Signs Vital signs: Vital Signs - 8 hr 01/27/21 14:20 Temperature 97.1 F L Pulse Rate 59 L Respiratory Rate 24 Blood Pressure 172/76 H Pulse Oximetry 100 <Michael Lopez DO - Last Filed: 01/28/21 08:35> Orders Ordered: ED Orders 01/27/21 14:49 US periph venous low extrem bi Stat 01/27/21 17:27 XR chest 2V Stat Complete Blood Count AUTO DIFF Stat Comprehensive Metabolic Panel Stat NT-proBNP (BNP-Adult 18+) Stat 01/27/21 18:35 Urinalysis and Microscopic Stat Vital Signs Vital signs: Vital Signs - 8 hr 01/27/21 14:20 Temperature 97.1 F L Pulse Rate 59 L Respiratory Rate 24 Blood Pressure 172/76 H Pulse Oximetry 100 MDM - Extremity (Nontraumatic) <Reji Caban PA-C - Last Filed: 01/27/21 19:31> Lab Data Result diagrams: 01/27/21 18:00 01/27/21 18:00 Labs: Lab Results 01/27/21 01/27/21 01/27/21 Range/Units 18:00 18:00 18:35 WBC 10.4 (4.5-11.0) X10^3/uL RBC 4.64 (4.0-5.2) X10^6/uL Hgb 13.2 (12.0-16.0) g/dL Hct 40.0 (36-46) % MCV 86.3 (80-100) fL MCH 28.4 (26-34) PG MCHC 32.9 (30-36) % RDW 14.3 (11.6-14.8) % Plt Count 288 (150-400) X10^3/uL Neut % (Auto) 63.1 (50-75) % Lymph % (Auto) 27.2 (25-40) % [place] % (Auto) 4.5 (3-14) % Eos % (Auto) 4.2 H (2-4) % Baso % (Auto) 1.0 (0-2) % Neut # (Auto) 6500 (0179-4319) /uL Lymph # (Auto) 2800 (5627-7262) /uL [place] # (Auto) 500 (0-900) /uL Eos # (Auto) 400 (0-450) /uL Baso # (Auto) 100 (0-100) /uL Sodium 142 (137-145) mmol/L Potassium 4.0 (3.4-5.1) mmol/L Chloride 103 (98-107) mmol/L Carbon Dioxide 30 (22-32) mmol/L BUN 23 H (7-17) mg/dL Creatinine 1.00 (0.52-1.04) mg/dL Estimated GFR 55.6 L (>60) mL/min BUN/Creatinine Ratio 23.0 H (6-22) Glucose 74 L (80-110) mg/dL Calcium 9.2 (8.4-10.2) mg/dL Total Bilirubin 0.4 (0.2-1.3) mg/dL AST 19 (14-36) IU/L ALT 22 (<35) IU/L Alkaline Phosphatase 103 (38-126) U/L NT-Pro-B Natriuret Pep 311 H (<125) pg/mL Total Protein 7.7 (6.3-8.2) g/dL Albumin 4.3 (3.5-5.0) g/dL Globulin 3.4 (1.7-4.1) g/dL Albumin/Globulin Ratio 1.3 (1.0-2.8) Urine Color Yellow Urine Appearance Clear Urine pH 5.5 (4.5-8.0) Ur Specific [place] 1.015 (1.000-1.035) Urine Protein Negative (Negative) Urine Glucose (UA) Trace H (Negative) g/dL Urine Ketones Negative (NEGATIVE) Urine Occult Blood Negative (Negative) Urine Nitrate Negative (Negative) Urine Bilirubin Negative (NEGATIVE) Urine Urobilinogen 0.2 (0.2) E.U./dL Ur Leukocyte Esterase Trace H (NEGATIVE) Urine RBC None seen (0-5/HPF) Urine WBC 5-10/hpf H (0-5/HPF) Ur Squamous Epith Cells 5-10 /hpf H (0-5/HPF) Urine Bacteria Few (2-10) H (None) Ur Culture Indicated? Cult not indicated Urine Dip Bedside Urine Glucose Negative Bedside Urine Bilirubin - Negative Bedside Urine Ketone - Negative Urine Specific [place] 1.025 Bedside Urine Occult Blood - Negative Bedside Urine pH 6.0 Bedside Urine Protein - Negative Bedside Urine Urobilinogen - Negative Bedside Urine Nitrite - Negative Bedside Urine Leukocytes - Negative Esterase Imaging Data US - DVT: Radiologist's Impression: PROCEDURE:? US PERIP VENOUS LOW EXTREM BI ? INDICATIONS:? PAIN, EDEMA ? TECHNIQUE:? Real-time imaging, as well as color and pulse Doppler interrogation, were performed of the deep veins of both legs from the inguinal ligament to the popliteal fossa.? ? COMPARISON:? [facility], [facility].PRAVEEN EXT BILAT, 08/15/2016, 22:37.? [facility], PERIP VENOUS LOW EXTREM LT, 07/27/2019, 13:05. ? FINDINGS:? ? Right: The common femoral, femoral and popliteal veins are normally compressible, and free of intraluminal thrombus.? Color and pulse Doppler demonstrate normal phasic intravascular flow.? There is normal augmentation response to distal compression maneuver.? ? Left: The common femoral, femoral and popliteal veins are normally compressible, and free of intraluminal thrombus.? Color and pulse Doppler demonstrate normal phasic intravascular flow.? There is normal augmentation response to distal compression maneuver.? ? This study is limited by body habitus.? ? ? IMPRESSION:? ? Negative for deep venous thrombosis. ? ? Dictated by: Rio Jackson M.D. on 01/27/2021 at 16:30 ? ? Approved by: Rio Jackson M.D. on 01/27/2021 at 16:32? Chest x-ray: Radiologist's Impression: PROCEDURE:? XR CHEST 2V ? INDICATIONS:? CHF ? TECHNIQUE:? 2 views of the chest were acquired.? ? COMPARISON:? [facility], , CHEST 2 VIEW, 05/20/2016, 16:21.? [facility], CR, XR CHEST 1V, 04/20/2018, 21:28. ? FINDINGS:? ? Surgical changes and devices:? None.? ? Lungs and pleura:? No focal infiltrates are seen. Mild generalized interstitial prominence can be seen. ? No pleural effusions or pneumothorax.? ? Mediastinum:? The cardiac contours are mildly enlarged. The aorta demonstrates calcification and tortuosity. ? Bones and chest wall:? No suspicious bony abnormalities.? Age-appropriate bony degenerative changes are seen.? Soft tissues appear unremarkable.? ? ? IMPRESSION:? Mild cardiomegaly and interstitial prominence, which are supportive the clinical diagnosis CHF. ? ? Dictated by: Rio Jackson M.D. on 01/27/2021 at 17:04 ? ? Approved by: Rio Jackson M.D. on 01/27/2021 at 17:05 ? MDM Narrative Medical decision making narrative: Patient is a 65-year-old female that presents to the emergency department today for an evaluation bilateral lower extremity swelling that began 3 days ago. To consider DVT versus CHF exacerbation. Diagnosis DVT less likely due to negative ultrasound of left lower extremity. Chest x-ray obtained due to history congestive heart failure and recent reports orthopnea. Chest x-ray results obtained are consistent with congestive heart failure findings, along with an elevated BNP of 311. Labs ordered are reassuring. <Michael Lopez, - Last Filed: 01/28/21 08:35> Lab Data Labs: Lab Results 01/27/21 01/27/21 01/27/21 Range/Units 18:00 18:00 18:35 WBC 10.4 (4.5-11.0) X10^3/uL RBC 4.64 (4.0-5.2) X10^6/uL Hgb 13.2 (12.0-16.0) g/dL Hct 40.0 (36-46) % MCV 86.3 (80-100) fL MCH 28.4 (26-34) PG MCHC 32.9 (30-36) % RDW 14.3 (11.6-14.8) % Plt Count 288 (150-400) X10^3/uL Neut % (Auto) 63.1 (50-75) % Lymph % (Auto) 27.2 (25-40) % [place] % (Auto) 4.5 (3-14) % Eos % (Auto) 4.2 H (2-4) % Baso % (Auto) 1.0 (0-2) % Neut # (Auto) 6500 (5810-0780) /uL Lymph # (Auto) 2800 (3681-7651) /uL [place] # (Auto) 500 (0-900) /uL Eos # (Auto) 400 (0-450) /uL Baso # (Auto) 100 (0-100) /uL Sodium 142 (137-145) mmol/L Potassium 4.0 (3.4-5.1) mmol/L Chloride 103 (98-107) mmol/L Carbon Dioxide 30 (22-32) mmol/L BUN 23 H (7-17) mg/dL Creatinine 1.00 (0.52-1.04) mg/dL Estimated GFR 55.6 L (>60) mL/min BUN/Creatinine Ratio 23.0 H (6-22) Glucose 74 L (80-110) mg/dL Calcium 9.2 (8.4-10.2) mg/dL Total Bilirubin 0.4 (0.2-1.3) mg/dL AST 19 (14-36) IU/L ALT 22 (<35) IU/L Alkaline Phosphatase 103 (38-126) U/L NT-Pro-B Natriuret Pep 311 H (<125) pg/mL Total Protein 7.7 (6.3-8.2) g/dL Albumin 4.3 (3.5-5.0) g/dL Globulin 3.4 (1.7-4.1) g/dL Albumin/Globulin Ratio 1.3 (1.0-2.8) Urine Color Yellow Urine Appearance Clear Urine pH 5.5 (4.5-8.0) Ur Specific [place] 1.015 (1.000-1.035) Urine Protein Negative (Negative) Urine Glucose (UA) Trace H (Negative) g/dL Urine Ketones Negative (NEGATIVE) Urine Occult Blood Negative (Negative) Urine Nitrate Negative (Negative) Urine Bilirubin Negative (NEGATIVE) Urine Urobilinogen 0.2 (0.2) E.U./dL Ur Leukocyte Esterase Trace H (NEGATIVE) Urine RBC None seen (0-5/HPF) Urine WBC 5-10/hpf H (0-5/HPF) Ur Squamous Epith Cells 5-10 /hpf H (0-5/HPF) Urine Bacteria Few (2-10) H (None) Ur Culture Indicated? Cult not indicated Urine Dip Bedside Urine Glucose Negative Bedside Urine Bilirubin - Negative Bedside Urine Ketone - Negative Urine Specific [place] 1.025 Bedside Urine Occult Blood - Negative Bedside Urine pH 6.0 Bedside Urine Protein - Negative Bedside Urine Urobilinogen - Negative Bedside Urine Nitrite - Negative Bedside Urine Leukocytes - Negative Esterase Discharge Plan Departure Patient Disposition: Home Clinical Impression: CHF exacerbation Qualifiers: Heart failure type: unspecified Qualified Code(s): I50.9 - Heart failure, unspecified Instructions: DI for Heart Failure Activity Restrictions/Additional Instructions: *You have been diagnosed with acute exacerbation of congestive heart failure *What to do: *Please continue to take your regular medications as directed. [ ] New medication prescriptions sent to your pharmacy: [ ] New medication written as a paper prescription [X] No new medications given - double your dosage of furosemide daily until he can be seen by your primary care doctor. *Please follow up with your primary care provider in 2-3 days, call for an appointment. Let them know you were seen in the Emergency Department and that we ask that you be seen in follow up. We will electronically transmit a record of today's note if your PCP is in our system. Please double your daily dosage of furosemide until you can be seen by your primary care provider. *If you do not have a primary care provider please contact the [facility] Resource line at [phone]. They will ask some questions about your medical history and help get you set up with a doctor in the community. *Return to Emergency Department if you should have any new, worsening or concerning symptoms, such as fever greater than 101 F, shaking chills, worsening pain, persistent vomiting, or other bothersome symptoms. Prescriptions: No Action fluconazole 150 mg tablet 150 mg PO Q3D Qty: 2 RF: 0 (DME) Glucose: Test Strips 0 .Route .MEDSUPPLY Qty: 100 RF: 11 metformin [Glucophage] 1,000 mg tablet 1,000 mg PO BIDCC Qty: 180 RF: 1 insulin syringe-needle U-100 [BD Insulin Syringe Ultra-Fine] 1 mL 31 gauge x 5/16 syringe See Rx Instructions .ROUTE .COMPLEX Qty: 100 RF: 3 metoprolol succinate 200 mg tablet extended release 24 hr 200 mg PO DAILY Qty: 90 RF: 3 furosemide [Lasix] 20 mg tablet 20 mg PO DAILY Qty: 90 RF: 1 gabapentin 300 mg capsule 300 mg PO BID Qty: 180 RF: 3 atorvastatin [Lipitor] 40 mg tablet 40 mg PO BEDTIME Qty: 90 RF: 2 Lantus U-100 Insulin 100 unit/mL solution 80 unit SUBCUT BID Qty: 50 RF: 2 insulin regular human [Humulin R Regular U-100 Insuln] 100 unit/mL solution See Rx Instructions .ROUTE .COMPLEX Qty: 30 RF: 10 omeprazole 40 mg capsule,delayed release(DR/EC) 40 mg PO DAILY Qty: 90 RF: 1 meloxicam [Mobic] 7.5 mg tablet 7.5 mg PO BIDCC Qty: 180 RF: 1 diltiazem HCl 120 mg capsule,extended release 12 hr 120 mg PO BID Qty: 180 RF: 2 oxycodone-acetaminophen 5-325 mg tablet 1 tab PO BID PRN (Reason: pain) Qty: 30 RF: 0 (DME) Glucose: Home Monitoring Kit 0 .Route .MEDSUPPLY Qty: 1 RF: 0 ketoconazole 2 % cream 1 applictn TOP BID Qty: 60 RF: 0 fluoxetine 20 mg capsule 20 mg PO DAILY Qty: 30 RF: 1 nystatin 100,000 unit/gram powder 1 applic TOP DAILY Qty: 30 RF: 0 lisinopril 40 mg tablet 40 mg PO QNOON RF: 0 Referrals: Florin Patel MD [Primary Care Provider] - <Michael Lopez DO - Last Filed: 01/28/21 08:35> [facility]ign[facility] Att[facility]: I was immediately available in the department for consultation. This documentation has been reviewed and I agree with assessment and plan. Supervised by Michael Lopez DO
--- NOTE | 2021-01-27 17:27 | DI.RAD.S_ITS ---
PROCEDURE: XR CHEST 2V INDICATIONS: CHF TECHNIQUE: 2 views of the chest were acquired. COMPARISON: [facility], , CHEST 2 VIEW, 05/20/2016, 16:21. [facility], , XR CHEST 1V, 04/20/2018, 21:28. FINDINGS: Surgical changes and devices: None. Lungs and pleura: No focal infiltrates are seen. Mild generalized interstitial prominence can be seen. No pleural effusions or pneumothorax. Mediastinum: The cardiac contours are mildly enlarged. The aorta demonstrates calcification and tortuosity. Bones and chest wall: No suspicious bony abnormalities. Age-appropriate bony degenerative changes are seen. Soft tissues appear unremarkable. IMPRESSION: Mild cardiomegaly and interstitial prominence, which are supportive the clinical diagnosis CHF. Dictated by: Rio Jackson M.D. on 01/27/2021 at 17:04 Approved by: Rio Jackson M.D. on 01/27/2021 at 17:05
[2021-01-27 18:23] LABS: Add Manual Diff / Slide Review NO; Alanine Aminotransferase 22 IU/L (<35); Albumin 4.3 g/dL (3.5-5.0); Albumin Globulin Ratio 1.3 (1.0-2.8); Alkaline Phosphatase 103 U/L (38-126); Aspartate Aminotransferase 19 IU/L (14-36); Basophils Absolute Auto 100 /uL (0-100); Bilirubin Total 0.4 mg/dL (0.2-1.3); Blood Urea Nitrogen 23 mg/dL (7-17); Calcium 9.2 mg/dL (8.4-10.2); Carbon Dioxide 30 mmol/L (22-32); Chloride 103 mmol/L (98-107); Eosinophils Absolute Auto 400 /uL (0-450); Eosinophils Percent Auto 4.2 % (2-4); Estimated Glomerular Filt Rate 55.6 mL/min (>60); Globulin 3.4 g/dL (1.7-4.1); Glucose 74 mg/dL (80-110); HEMOLYSIS < 15 (0-50); Hemoglobin 13.2 g/dL (12.0-16.0); Lymphocytes Absolute Auto 2800 /uL (1100-4500); Lymphocytes Percent Auto 27.2 % (25-40); Mean Corpuscular HGB Conc 32.9 % (30-36); Mean Corpuscular Hemoglobin 28.4 PG (26-34); Mean Corpuscular Volume 86.3 fL (80-100); Monocytes Absolute Auto 500 /uL (0-900); Monocytes Percent Auto 4.5 % (3-14); Neutrophils Absolute Auto 6500 /uL (1500-7000); Neutrophils Percent Auto 63.1 % (50-75); Platelet Count 288 X10^3/uL (150-400); Red Blood Cell Count 4.64 X10^6/uL (4.0-5.2); Red Cell Distribution Width 14.3 % (11.6-14.8); Sodium 142 mmol/L (137-145); Total Protein 7.7 g/dL (6.3-8.2); White Blood Cell Count 10.4 X10^3/uL (4.5-11.0)
[2021-01-27 18:31] LABS: NT-proBNP (BNP-Adult 18+) 311 pg/mL (<125)
[2021-01-27 18:50] LABS: Appearance Urine UA CLEAR; Bilirubin Urine UA NEGATIVE (NEGATIVE); Color Urine UA YELLOW; Glucose Urine UA TRACE g/dL (Negative); Ketones Urine UA NEGATIVE (NEGATIVE); Leukocyte Esterase Urine UA TRACE (NEGATIVE); Nitrite Urine UA NEGATIVE (Negative); Occult Blood Urine UA NEGATIVE (Negative); Protein Urine UA NEGATIVE (Negative); Specific Gravity Urine UA 1.015 (1.000-1.035); Urobilinogen Urine UA 0.2 E.U./dL (0.2)
[2021-01-27 18:51] LABS: RBC Urine None Seen (0-5/HPF); Squamous Epithelial Cell Urine 5-10 /HPF (0-5/HPF); WBC Urine 5-10/HPF (0-5/HPF); pH Urine UA 5.5 (4.5-8.0)
[2021-01-27 18:52] LABS: Bacteria Urine Few (2-10); Culture Indicated Urine Cult Not Indicated
[2021-01-27 19:34] VITALS: BP 182/82; PULSE 53; RESP 18; TEMP 36.4; O2SAT 96
== END 2021-01-27 19:35 | disposition home or self-care (01) ==
PROVIDERS: Emergency Medicine; Emergency Provider Physician Assistant; PCP Student in an Organized Health Care Education/Training Program
DX: I50.9 Heart failure, unspecified (principal); R60.0 Localized edema
CPT/HCPCS: 36415; 71046; 80053; 81001; 81003; 83880; 85025; 93970; 99284

== ENCOUNTER → 2021-02-06 15:18 | Outpatient (CLI) | payer OTHER, SELFPAY ==
[2021-02-06 15:11] VITALS: BMI 51.5
[2021-02-06 17:17] LABS: Hemoglobin A1C% w Est Avg Glu 8.8 % (4.0-6.0)
[2021-02-06 17:33] LABS: BUN Creatinine Ratio 20.5 (6-22); Blood Urea Nitrogen 18 mg/dL (7-17); Estimated Glomerular Filt Rate > 60.0 mL/min (>60)
== END ==
PROVIDERS: PCP Student in an Organized Health Care Education/Training Program; Referring Provider Student in an Organized Health Care Education/Training Program; Visit Provider Student in an Organized Health Care Education/Training Program
DX: E11.610 Type 2 diabetes mellitus with diabetic neuropathic arthropathy (principal); I10 Essential (primary) hypertension; Z79.4 Long term (current) use of insulin
CPT/HCPCS: 36415; 82565; 83036; 84520

== ENCOUNTER → 2022-01-18 16:06 | Outpatient (CLI) | payer OTHER, SELFPAY ==
[2021-02-06 15:11] VITALS: BMI 51.5
--- NOTE | 2022-01-18 16:06 | DI.MG.S_ITS ---
BILATERAL DIGITAL SCREENING MAMMOGRAM 3D/2D WITH CAD: 01/18/2022 CLINICAL: Routine screening. Comparison is made to exams dated: 12/15/2020 mammogram, 09/11/2018 mammogram, and 05/13/2017 mammogram - [facility]. There are scattered areas of fibroglandular density in both breasts (category b / 25%-50% glandular tissue). Current study was also evaluated with a Computer Aided Detection (CAD) system. There are benign vascular calcifications in both breasts. No significant masses, calcifications, or other findings are seen in either breast. There has been no significant interval change. IMPRESSION: BENIGN There is no mammographic evidence of malignancy. A 1 year screening mammogram is recommended. Based on the Tyrer Cuzick model (a risk assessment model) the patient's lifetime risk is 4.1% and her 10 year risk is 2.0%. According to the ACR, ACS, and NCCN guidelines, an annual breast MRI exam along with mammogram is recommended if the patient's lifetime risk is 20% or greater. This exam was interpreted at Station ID: [id number]. NOTE: For mammograms, a report in lay terms will be sent to the patient. Approximately 15% of breast malignancies will not be visualized mammographically. In the management of a palpable breast mass, a negative mammogram must not discourage biopsy of a clinically suspicious lesion. Electronically Signed By: Leonor chaves/jena:01/18/2022 18:07:15 letter sent: Normal Exam ACR BI-RADS Category 2: Benign Finding(s) [id number]
== END ==
PROVIDERS: PCP Student in an Organized Health Care Education/Training Program; Referring Provider Student in an Organized Health Care Education/Training Program; Visit Provider Student in an Organized Health Care Education/Training Program
DX: Z12.31 Encounter for screening mammogram for malignant neoplasm of breast (principal); Z78.0 Asymptomatic menopausal state; Z13.820 Encounter for screening for osteoporosis
CPT/HCPCS: 77063; 77067; 77080

== ENCOUNTER 2022-03-01 06:06 | Emergency (ER) | payer OTHER, SELFPAY ==
[2021-02-06 15:11] VITALS: BMI 51.5
[2022-03-01 06:40] VITALS: BP 158/74; PULSE 66; RESP 18; TEMP 36.1; O2SAT 97; BMI 53.2
--- NOTE | 2022-03-01 06:50 | PC.NURSE ---
pt c/o BLE cramping, states she is on a water pill and it begins with a F but denies it is furosemide, states she thinks there is potassium in the water pill
--- NOTE | 2022-03-01 07:19 | ED_ITS ---
HPI - Extremity Problem General Chief complaint: Extremity Problem,Nontraumatic Stated complaint: leg cramps and cant control bowels Time Seen by Provider: 03/01/22 07:01 Source: patient Mode of arrival: Wheelchair History of Present Illness HPI Narrative: 66-year-old female the history of insulin-dependent diabetes who is here for evaluation of bilateral but left greater than right leg cramps. Has had leg cramps in the past but never this bad. She woke up at approximately 0200 hours in the morning with pain in her left leg. She had a family member tried to massage her legs in did improve somewhat but it seems to come and go. Currently she feels somewhat better but states that it feels like it is just on edge ready to start cramping again. No skin rashes. Related Data Home Medications Medication Instructions Recorded Confirmed empagliflozin 25 mg tablet 25 mg PO DAILY 09/12/21 01/16/22 (Jardiance) Previous Rx's Medication Instructions Recorded Glucose: Home Monitoring Kit #1 device 04/29/18 Glucose: Test Strips #100 ea 12/16/18 furosemide 20 mg tablet (Lasix) 20 mg PO DAILY #90 tabs 07/03/20 fluoxetine 20 mg capsule 20 mg PO DAILY #30 caps 10/31/20 fexofenadine 180 mg tablet 180 mg PO BEDTIME #90 tabs 03/26/21 insulin syringe-needle U-100 1 mL See Rx Instructions .Route 06/08/21 31 gauge x 5/16 (BD Insulin .COMPLEX #100 ea Syringe Ultra-Fine) diltiazem HCl 120 mg 120 mg PO BID #180 caps 06/25/21 capsule,extended release 12 hr lisinopril 40 mg tablet 40 mg PO DAILY #90 tabs 06/25/21 metoprolol succinate 200 mg 200 mg PO DAILY #90 tabs 06/25/21 tablet,extended release 24 hr omeprazole 40 mg capsule,delayed 40 mg PO DAILY #90 caps 06/25/21 release meloxicam 7.5 mg tablet (Mobic) 7.5 mg PO BIDCC #180 tabs 07/25/21 gabapentin 300 mg capsule 300 mg PO BID #180 caps 09/25/21 insulin glargine 100 unit/mL 80 unit (0.8 mL) SUBCUT BID #50 mL 09/25/21 subcutaneous solution (Lantus U-100 Insulin) metformin 1,000 mg tablet 1,000 mg PO BIDCC #180 tabs 09/25/21 nystatin 100,000 unit/gram topical 1 applic topical DAILY #30 grams 09/25/21 powder insulin lispro 100 unit/mL 30 unit (0.3 mL) SUBCUT BID #60 mL 10/25/21 subcutaneous solution atorvastatin 40 mg tablet (Lipitor) 40 mg PO BEDTIME #90 tabs 12/14/21 oxycodone-acetaminophen 5 mg-325 1 tab PO BID PRN pain #60 tabs 02/26/22 mg tablet cyclobenzaprine 10 mg tablet 10 mg PO TID PRN muscle spasm #12 03/01/22 tabs Allergies Allergy/AdvReac Type Severity Reaction Status Date / Time No Known Drug Allergies Allergy Verified 01/16/22 14:14 Review of Systems Musculoskeletal Musculoskeletal: Reports system reviewed and no additional complaints, except as documented Neurologic Neurologic: Reports system reviewed and no additional complaints, except as documented Hematologic/Lymphatic On Anticoagulants: No Patient History Medical History Congestive heart failure Diabetes mellitus Heart disease Hypertension Morbid obesity with BMI of 50.0-59.9, adult Osteoarthritis Peripheral neuropathy Sleep apnea Urinary incontinence Surgical History History of cholecystectomy History of hysterectomy History of knee replacement (01/2015) Family History Mother Alcohol abuse Skin cancer Father Heart attack Social History household members: family and children Smoking Status: Never smoker Smoking Status: Never smoker alcohol intake frequency: 0-2 drinks per day Substance Use Type: does not use Exam Initial Vital Signs Initial Vital Signs: Vital Signs Temperature 97 F L 03/01/22 06:40 Pulse Rate 66 03/01/22 06:40 Respiratory Rate 18 03/01/22 06:40 Blood Pressure 158/74 H 03/01/22 06:40 Pulse Oximetry 97 03/01/22 06:40 Oxygen Delivery Method 03/01/22 06:40 Resp Effort & Inspection: normal respiratory effort Cardio Rate: regular rate Skin General: no rashes or lesions noted Neuro General: patient alert, patient awake and moves all extremities Extrem Other: No specific muscle spasms felt on bilateral lower extremities. Course Orders Ordered: ED Orders 03/01/22 07:32 Basic Metabolic Panel Stat Complete Blood Count AUTO DIFF Stat Magnesium Stat Discontinued Medications Cyclobenzaprine HCl (Cyclobenzaprine 10 Mg Tablet) 10 mg PO NOW ONE Stop: 03/01/22 07:20 Last Admin: 03/01/22 07:28 Dose: 10 mg Documented By: MARK Vital Signs Vital signs: Vital Signs - 8 hr 03/01/22 06:40 Temperature 97 F L Pulse Rate 66 Respiratory Rate 18 Blood Pressure 158/74 H Pulse Oximetry 97 Oxygen Delivery Method Room Air MDM - Extremity (Nontraumatic) Lab Data Result diagrams: 03/01/22 07:32 03/01/22 07:32 Labs: Lab Results 03/01/22 03/01/22 Range/Units 07:32 07:32 WBC 10.3 (4.5-11.0) X10^3/uL RBC 4.73 (4.0-5.2) X10^6/uL Hgb 13.8 (12.0-16.0) g/dL Hct 40.8 (36-46) % MCV 86.3 (80-100) fL MCH 29.1 (26-34) PG MCHC 33.8 (30-36) % RDW 13.8 (11.6-14.8) % Plt Count 305 (150-400) X10^3/uL Neut % (Auto) 74.9 (50-75) % Lymph % (Auto) 18.7 L (25-40) % [place] % (Auto) 3.7 (3-14) % Eos % (Auto) 1.6 L (2-4) % Baso % (Auto) 1.1 (0-2) % Neut # (Auto) 7700 H (2748-0774) /uL Lymph # (Auto) 1900 (3132-8846) /uL [place] # (Auto) 400 (0-900) /uL Eos # (Auto) 200 (0-450) /uL Baso # (Auto) 100 (0-100) /uL Sodium 131 L (137-145) mmol/L Potassium 4.0 (3.4-5.1) mmol/L Chloride 94 L (98-107) mmol/L Carbon Dioxide 24 (22-32) mmol/L BUN 19 H (7-17) mg/dL Creatinine 0.82 (0.52-1.04) mg/dL Estimated GFR > 60 (>60) mL/min BUN/Creatinine Ratio 23.2 H (6-22) Glucose 323 H (80-110) mg/dL Calcium 9.3 (8.4-10.2) mg/dL Magnesium 1.8 (1.6-2.3) mg/dL MDM Narrative Medical decision making narrative: Patient is having lower extremity muscle cramping. Her electrolytes are unrem arkable. Is hyperglycemic but not in DKA. She did drink some Gatorade prior to arrival. We can hold on further workup for now. Will send home with prescription for some muscle relaxers. We also discussed other conservative measures that she can try. We discussed her elevated blood sugar. She was given return precautions. She expressed understanding and agreement. Discharge Plan Departure Patient Disposition: Home Clinical Impression: Cramp in muscle Instructions: Nocturnal Leg Cramps Activity Restrictions/Additional Instructions: Your blood sugar today was elevated. You do need to check your blood sugars at home and talk with your primary doctor regarding this. Continue to take all of your medications as directed. Be sure to increase your fluid intake. Try conservative measures such as stretching and massage to help with the cramping if it occurs. Return to the emergency department for any new symptoms. Prescriptions: New cyclobenzaprine 10 mg tablet 10 mg PO TID PRN (Reason: muscle spasm) Qty: 12 0RF No Action (DME) Glucose: Test Strips 0 .Route .MEDSUPPLY Qty: 100 11RF Dose Instruction: As directed Rx Instructions: One Touch Ultra strips. Use to check blood sugar 3 times a day furosemide [Lasix] 20 mg tablet 20 mg PO DAILY Qty: 90 1RF fexofenadine 180 mg tablet 180 mg PO BEDTIME Qty: 90 3RF insulin syringe-needle U-100 [BD Insulin Syringe Ultra-Fine] 1 mL 31 gauge x 5/16 syringe See Rx Instructions .ROUTE .COMPLEX Qty: 100 3RF Dose Instruction: use 3 times a day with insulin Rx Instructions: use 3 times a day with insulin omeprazole 40 mg capsule,delayed release(DR/EC) 40 mg PO DAILY Qty: 90 2RF metoprolol succinate 200 mg tablet extended release 24 hr 200 mg PO DAILY Qty: 90 2RF Label Comments: patient states took 100mg 11/04/18 diltiazem HCl 120 mg capsule,extended release 12 hr 120 mg PO BID Qty: 180 2RF lisinopril 40 mg tablet 40 mg PO DAILY Qty: 90 2RF meloxicam [Mobic] 7.5 mg tablet 7.5 mg PO BIDCC Qty: 180 1RF Jardiance 25 mg tablet 25 mg PO DAILY metformin 1,000 mg tablet 1,000 mg PO BIDCC Qty: 180 1RF Label Comments: patient states took 500mg 11/04/18 Lantus U-100 Insulin 100 unit/mL solution 80 unit SUBCUT BID Qty: 50 5RF gabapentin 300 mg capsule 300 mg PO BID Qty: 180 3RF nystatin 100,000 unit/gram powder 1 applic TOP DAILY Qty: 30 0RF insulin lispro 100 unit/mL solution 30 unit SUBCUT BID Qty: 60 4RF Rx Instructions: with meals atorvastatin [Lipitor] 40 mg tablet 40 mg PO BEDTIME Qty: 90 3RF oxycodone-acetaminophen 5-325 mg tablet 1 tab PO BID PRN (Reason: pain) Qty: 60 0RF Rx Instructions: EXEMPT (DME) Glucose: Home Monitoring Kit 0 .Route .MEDSUPPLY Qty: 1 0RF Dose Instruction: As directed Rx Instructions: Use to check blood sugar 3 times a day fluoxetine 20 mg capsule 20 mg PO DAILY Qty: 30 1RF Referrals: Florin Patel MD [Primary Care Provider] -
[2022-03-01] MEDS: CYCLOBENZAPRINE 10 MG TABLET PO (07:28)
[2022-03-01 07:52] LABS: Add Manual Diff / Slide Review NO; Basophils Absolute Auto 100 /uL (0-100); Basophils Percent Auto 1.1 % (0-2); Eosinophils Absolute Auto 200 /uL (0-450); Eosinophils Percent Auto 1.6 % (2-4); Hematocrit 40.8 % (36-46); Hemoglobin 13.8 g/dL (12.0-16.0); Lymphocytes Absolute Auto 1900 /uL (1100-4500); Lymphocytes Percent Auto 18.7 % (25-40); Mean Corpuscular HGB Conc 33.8 % (30-36); Mean Corpuscular Hemoglobin 29.1 PG (26-34); Mean Corpuscular Volume 86.3 fL (80-100); Monocytes Absolute Auto 400 /uL (0-900); Monocytes Percent Auto 3.7 % (3-14); Neutrophils Absolute Auto 7700 /uL (1500-7000); Neutrophils Percent Auto 74.9 % (50-75); Platelet Count 305 X10^3/uL (150-400); Red Blood Cell Count 4.73 X10^6/uL (4.0-5.2); Red Cell Distribution Width 13.8 % (11.6-14.8); White Blood Cell Count 10.3 X10^3/uL (4.5-11.0)
[2022-03-01 08:00] LABS: BUN Creatinine Ratio 23.2 (6-22); Blood Urea Nitrogen 19 mg/dL (7-17); Calcium 9.3 mg/dL (8.4-10.2); Carbon Dioxide 24 mmol/L (22-32); Chloride 94 mmol/L (98-107); Estimated Glomerular Filt Rate > 60 mL/min (>60); Glucose 323 mg/dL (80-110); HEMOLYSIS < 15 (0-50); Magnesium 1.8 mg/dL (1.6-2.3); Sodium 131 mmol/L (137-145)
[2022-03-01 08:48] VITALS: BP 152/74; PULSE 61; O2SAT 95
== END 2022-03-01 08:49 | disposition home or self-care (01) ==
PROVIDERS: Emergency Provider Emergency Medicine; PCP Student in an Organized Health Care Education/Training Program
DX: R25.2 Cramp and spasm (principal)
CPT/HCPCS: 80048; 83735; 85025; 99283

== ENCOUNTER → 2022-04-15 08:26 | Outpatient (CLI) | payer OTHER, SELFPAY ==
[2021-02-06 15:11] VITALS: BMI 51.5
== END ==
PROVIDERS: PCP Student in an Organized Health Care Education/Training Program; Visit Provider Family Medicine
DX: N89.8 Other specified noninflammatory disorders of vagina (principal)
CPT/HCPCS: 87070; 87075; 87077; 87186; 87205

== ENCOUNTER → 2022-04-17 16:29 | Outpatient (CLI) | payer OTHER, SELFPAY ==
[2021-02-06 15:11] VITALS: BMI 51.5
== END ==
PROVIDERS: PCP Student in an Organized Health Care Education/Training Program; Referring Provider Family Medicine; Visit Provider Family Medicine
DX: N89.8 Other specified noninflammatory disorders of vagina (principal)

== ENCOUNTER → 2022-10-01 10:20 | Outpatient (CLI) | payer OTHER, SELFPAY ==
[2021-02-06 15:11] VITALS: BMI 51.5
[2022-10-01 11:43] LABS: Appearance Urine UA CLEAR; Bilirubin Urine UA NEGATIVE (NEGATIVE); Color Urine UA YELLOW; Glucose Urine UA 1+ g/dL (Negative); Ketones Urine UA NEGATIVE (NEGATIVE); Leukocyte Esterase Urine UA NEGATIVE (NEGATIVE); Nitrite Urine UA NEGATIVE (Negative); Occult Blood Urine UA NEGATIVE (Negative); Protein Urine UA TRACE (Negative)
[2022-10-01 11:46] LABS: pH Urine UA 6.5 (4.5-8.0)
[2022-10-01 11:52] LABS: Bacteria Urine Many (>30); Creatinine Urine Random 62.5 mg/dL; Culture Indicated Urine Specimen Cultured; RBC Urine None Seen (0-5/HPF); Squamous Epithelial Cell Urine 0-1 /HPF (0-5/HPF); WBC Urine 1-5/HPF (0-5/HPF)
[2022-10-01 11:57] LABS: Microalbumin Urine Random 13.5 mg/dL (0-1.6)
[2022-10-01 12:21] LABS: Free T4, Direct Thyroxine 0.92 ng/dL (0.78-2.19)
[2022-10-02 04:08] LABS: Labcorp Hemoglobin (Hb) A1c 8.5 % (4.8-5.6)
== END ==
PROVIDERS: PCP Pediatrics; Referring Provider Pediatrics; Visit Provider Pediatrics
DX: E66.01 Morbid (severe) obesity due to excess calories (principal); F11.20 Opioid dependence, uncomplicated; M15.9 Polyosteoarthritis, unspecified; T14.8XXA Other injury of unspecified body region, initial encounter; Z68.43 Body mass index [BMI] 50.0-59.9, adult
CPT/HCPCS: 36415; 81001; 82043; 82570; 83036; 84439; 84443; 87077; 87086; 87186

== ENCOUNTER 2022-11-17 23:39 | Emergency (ER) | payer OTHER, SELFPAY ==
[2021-02-06 15:11] VITALS: BMI 51.5
[2022-11-17 23:42] VITALS: BP 177/83; PULSE 61; RESP 16; TEMP 36.1; O2SAT 96; BMI 57.1
[2022-11-18 00:47] LABS: Add Manual Diff / Slide Review NO; Basophils Absolute Auto 100 /uL (0-100); Eosinophils Absolute Auto 300 /uL (0-450); Eosinophils Percent Auto 4.3 % (2-4); Hemoglobin 11.2 g/dL (12.0-16.0); Lymphocytes Absolute Auto 1800 /uL (1100-4500); Lymphocytes Percent Auto 22.3 % (25-40); Mean Corpuscular Hemoglobin 28.8 PG (26-34); Mean Corpuscular Volume 87.2 fL (80-100); Monocytes Absolute Auto 400 /uL (0-900); Monocytes Percent Auto 5.1 % (3-14); Neutrophils Absolute Auto 5300 /uL (1500-7000); Neutrophils Percent Auto 67.3 % (50-75); Platelet Count 243 X10^3/uL (150-400); Red Blood Cell Count 3.89 X10^6/uL (4.0-5.2); Red Cell Distribution Width 14.1 % (11.6-14.8); White Blood Cell Count 7.9 X10^3/uL (4.5-11.0)
[2022-11-18 00:57] LABS: Lactate (Lactic Acid) 1.5 mmol/L (0.7-2.1)
[2022-11-18 00:58] LABS: Alanine Aminotransferase 43 IU/L (<35); Albumin 3.8 g/dL (3.5-5.0); Albumin Globulin Ratio 1.1 (1.0-2.8); Alkaline Phosphatase 99 U/L (38-126); Aspartate Aminotransferase 43 IU/L (14-36); BUN Creatinine Ratio 22.5 (6-22); Bilirubin Total 0.6 mg/dL (0.2-1.3); Blood Urea Nitrogen 18 mg/dL (7-17); Calcium 8.1 mg/dL (8.4-10.2); Carbon Dioxide 32 mmol/L (22-32); Chloride 99 mmol/L (98-107); Creatine Kinase 80 U/L (30-135); Estimated Glomerular Filt Rate > 60 mL/min (>60); Globulin 3.6 g/dL (1.7-4.1); Glucose 139 mg/dL (80-110); HEMOLYSIS 35 (0-50); Magnesium 1.8 mg/dL (1.6-2.3); Potassium 4.1 mmol/L (3.4-5.1); Sodium 137 mmol/L (137-145); Total Protein 7.4 g/dL (6.3-8.2)
[2022-11-18 01:09] LABS: NT-proBNP (BNP-Adult 18+) 654 pg/mL (<125); Troponin I < 0.012 ng/mL (0.01-0.034)
[2022-11-18 01:30] VITALS: BP 168/77; PULSE 56; O2SAT 95
--- NOTE | 2022-11-18 01:34 | ED_ITS ---
HPI - Extremity Problem General Chief complaint: Extremity Problem,Nontraumatic Stated complaint: legs swollen, burning pain Time Seen by Provider: 11/17/22 23:46 Mode of arrival: Wheelchair History of Present Illness HPI Narrative: 67-year-old female nonsmoker with history of lower extremity edema, prior cellulitis, BMI greater than 50, diabetes, CHF presents with a chief complaint of increased swelling of her bilateral lower extremities over the past few wee ks. She is had some increasing pain and redness over the past few days but denies any fever or chills. She denies headaches or blurred vision. She has no chest pain or shortness of breath. She denies nausea, vomiting or diarrhea. She states that she had a similar experience a few weeks ago was put on antibiotics which seemed to help her symptoms significantly. Related Data Home Medications Medication Instructions Recorded Confirmed empagliflozin 25 mg tablet 25 mg PO DAILY 09/12/21 11/06/22 (Jardiance) Previous Rx's Medication Instructions Recorded Glucose: Home Monitoring Kit #1 device 04/29/18 Glucose: Test Strips #100 ea 12/16/18 furosemide 20 mg tablet (Lasix) 20 mg PO DAILY #90 tabs 07/03/20 insulin lispro 100 unit/mL 30 unit (0.3 mL) SUBCUT BID #60 mL 10/25/21 subcutaneous solution atorvastatin 40 mg tablet (Lipitor) 40 mg PO BEDTIME #90 tabs 12/14/21 cyclobenzaprine 10 mg tablet 10 mg PO TID PRN muscle spasm #12 03/01/22 tabs metformin 1,000 mg tablet 1,000 mg PO BIDCC #180 tabs 03/18/22 metoprolol succinate 200 mg 200 mg PO DAILY #90 tabs 03/18/22 tablet,extended release 24 hr omeprazole 40 mg capsule,delayed 40 mg PO DAILY #90 caps 03/18/22 release nystatin 100,000 unit/gram topical 1 applic topical DAILY #30 grams 04/15/22 powder fluoxetine 20 mg capsule 20 mg PO DAILY #90 caps 04/17/22 fexofenadine 180 mg tablet 180 mg PO BEDTIME #90 tabs 05/27/22 diltiazem HCl 120 mg 120 mg PO BID #180 caps 06/27/22 capsule,extended release 12 hr insulin syringe-needle U-100 1 mL See Rx Instructions .Route 09/13/22 31 gauge x 5/16 (BD Insulin .COMPLEX #100 ea Syringe Ultra-Fine) gabapentin 300 mg capsule See Rx Instructions .Route 09/23/22 .COMPLEX #180 caps lisinopril 40 mg tablet 40 mg PO DAILY #90 tabs 09/27/22 DISABLED PARKING PERMIT #1 ea 10/01/22 amoxicillin 500 mg-potassium 1 tab PO BID presumed skin 10/01/22 clavulanate 125 mg tablet infection #20 tabs (Augmentin) insulin glargine 100 unit/mL 80 unit (0.8 mL) SUBCUT BID #50 mL 10/30/22 subcutaneous solution (Lantus U-100 Insulin) oxycodone-acetaminophen 5 mg-325 1 tab PO BID PRN pain #60 tabs 10/31/22 mg tablet meloxicam 7.5 mg tablet 7.5 mg PO BIDCC #180 tabs 11/05/22 doxycycline hyclate 100 mg tablet 100 mg PO BID #20 tabs 11/18/22 Allergies Allergy/AdvReac Type Severity Reaction Status Date / Time No Known Drug Allergies Allergy Verified 11/17/22 23:47 Review of Systems Review of Systems Narrative: GENERAL: Denies chills, fatigue, malaise, fever, sweats. HEENT: Denies sinus pain, ear pain, sore throat, difficulty swallowing, dizziness. RESPIRATORY: Denies dyspnea, cough, wheezing, hemoptysis, sputum. CARDIOVASCULAR: Denies chest pain, palpitations, orthopnea, edema, GASTROINTESTINAL: Denies nausea, vomiting, abdominal pain, diarrhea, constipation, melena. : Denies dysuria, frequency, incontinence, hematuria, urinary retention. MUSCULOSKELETAL: See HPI SKIN: See HPI NEUROLOGIC: Denies weakness, headache, numbness, change in speech, confusion, seizures, incoordination. PSYCHIATRIC: No concerning psychosocial issues. 12 point review of systems is negative except for those stated above Patient History Medical History Congestive heart failure Diabetes mellitus Heart disease Hypertension Morbid obesity with BMI of 50.0-59.9, adult Osteoarthritis Peripheral neuropathy Sleep apnea Urinary incontinence Surgical History History of cholecystectomy History of hysterectomy History of knee replacement (01/2015) Family History Mother Alcohol abuse Skin cancer Father Heart attack Social History household members: family and children Smoking Status: Never smoker Smoking Status: Never smoker alcohol intake frequency: holidays/special occasions only Substance Use Type: does not use Exam Narrative Exam Narrative: GENERAL: [67] year old patient appears stated age. Well-developed patient, in mild distress. HEAD: Atraumatic. Normocephalic. EYES: Pupils equal round and reactive. Extraocular motions intact. No scleral icterus. No injection or drainage. ENT: Nose without bleeding, purulent drainage. Throat without erythema, tonsillar hypertrophy or exudate. Airway patent. NECK: Trachea midline. Non tender CARDIOVASCULAR: Regular rate and rhythm without murmurs, gallops, or rubs. RESPIRATORY: Clear to auscultation. Breath sounds equal bilaterally. No wheezes, rales, or rhonchi. No use of accessory muscles no hypoxemia GASTROINTESTINAL: Abdomen soft, non-tender, nondistended. EXTREMITIES: Significant swelling of bilateral lower extremities with evidence of chronic venous stasis, there is minimal erythema, no significant induration no fluctuance no drainage, no ulcers or breaks in the skin BACK: Nontender without deformity or crepitance. No flank tenderness. NEURO: AOx3. SKIN: No rash or erythema of visible areas Initial Vital Signs Initial Vital Signs: Vital Signs Temperature 97.0 F L 11/17/22 23:42 Pulse Rate 61 11/17/22 23:42 Respiratory Rate 16 11/17/22 23:42 Blood Pressure 177/83 H 11/17/22 23:42 Pulse Oximetry 96 11/17/22 23:42 Oxygen Delivery Method Room Air 11/17/22 23:42 Course Orders Ordered: ED Orders 11/18/22 00:30 Complete Blood Count AUTO DIFF Stat Comprehensive Metabolic Panel Stat Lactate (Lactic Acid) Stat Magnesium Stat NT-proBNP (BNP-Adult 18+) Stat Troponin & CK Cardiac Panel Stat Discontinued Medications Doxycycline Hyclate (Doxycycline Hyclate 100 Mg Tablet) 100 mg PO NOW ONE Stop: 11/18/22 01:54 Vital Signs Vital signs: Vital Signs - 8 hr 11/17/22 23:42 Temperature 97.0 F L Pulse Rate 61 Respiratory Rate 16 Blood Pressure 177/83 H Pulse Oximetry 96 Oxygen Delivery Method Room Air MDM - Extremity (Nontraumatic) Lab Data 11/18/22 00:30 11/18/22 00:30 Labs: Lab Results 11/18/22 11/18/22 11/18/22 Range/Units 00:30 00:30 00:30 WBC 7.9 (4.5-11.0) X10^3/uL RBC 3.89 L (4.0-5.2) X10^6/uL Hgb 11.2 L (12.0-16.0) g/dL Hct 34.0 L (36-46) % MCV 87.2 (80-100) fL MCH 28.8 (26-34) PG MCHC 33.0 (30-36) % RDW 14.1 (11.6-14.8) % Plt Count 243 (150-400) X10^3/uL Neut % (Auto) 67.3 (50-75) % Lymph % (Auto) 22.3 L (25-40) % [place] % (Auto) 5.1 (3-14) % Eos % (Auto) 4.3 H (2-4) % Baso % (Auto) 1.0 (0-2) % Neut # (Auto) 5300 (2415-1226) /uL Lymph # (Auto) 1800 (5689-5267) /uL [place] # (Auto) 400 (0-900) /uL Eos # (Auto) 300 (0-450) /uL Baso # (Auto) 100 (0-100) /uL Sodium 137 (137-145) mmol/L Potassium 4.1 (3.4-5.1) mmol/L Chloride 99 (98-107) mmol/L Carbon Dioxide 32 (22-32) mmol/L BUN 18 H (7-17) mg/dL Creatinine 0.80 (0.52-1.04) mg/dL Estimated GFR > 60 (>60) mL/min BUN/Creatinine Ratio 22.5 H (6-22) Glucose 139 H (80-110) mg/dL Lactate 1.5 (0.7-2.1) mmol/L Calcium 8.1 L (8.4-10.2) mg/dL Magnesium 1.8 (1.6-2.3) mg/dL Total Bilirubin 0.6 (0.2-1.3) mg/dL AST 43 H (14-36) IU/L ALT 43 H (<35) IU/L Alkaline Phosphatase 99 (38-126) U/L Total Creatine Kinase 80 (30-135) U/L Troponin I < 0.012 (0.01-0.034) ng/mL NT-Pro-B Natriuret Pep 654 H (<125) pg/mL Total Protein 7.4 (6.3-8.2) g/dL Albumin 3.8 (3.5-5.0) g/dL Globulin 3.6 (1.7-4.1) g/dL Albumin/Globulin Ratio 1.1 (1.0-2.8) MDM Narrative Medical decision making narrative: [67] year old patient presents with increasing swelling of both legs Multiple etiologies for patient's symptoms considered including, but not limited to: [CHF exacerbation versus cellulitis versus other] Prior Charts reviewed in our EMR Primary Historian: patient Labs reviewed and interpreted by myself: No leukocytosis or left shift, no signs of anemia, slight increase in her BNP, electrolytes and renal function within normal Patient's symptoms improved over duration of stay with above-stated therapies. History and physical exam are reassuring, increased swelling in bilateral lower extremities with minimal erythema most likely exacerbation of CHF, thankfully she has no respiratory distress or hypoxemia, no abnormal lung sounds. There is what she reports some increased redness, no signs of sepsis or drainage, no induration or fluctuance to suggest abscess. It is reasonable to consider treating with antibiotics given her history. Findings and discharge diagnosis discussed with patient/family followed by verbalization of understanding Return precautions discussed with patient/family whom verbalize understanding of diagnosis and plan Discharge Plan Departure Patient Disposition: Home Clinical Impression: Cellulitis of both lower extremities, Edema, peripheral Instructions: DI for Cellulitis -- Adult Activity Restrictions/Additional Instructions: *You have been diagnosed with [bilateral peripheral edema and early bilateral cellulitis] *What to do: * please take an extra Lasix (furosemide) each day for each of the next 3 days and then resume normal dosing. Otherwise, Please continue to take your regular medications as directed. [ x] New medication prescriptions sent to your pharmacy: [[facility] ] [ ] New medication written as a paper prescription [ ] No new medications given *Please follow up with your primary care provider in 2-3 days, call for an appointment. Let them know you were seen in the Emergency Department and that we ask that you be seen in follow up. We will electronically transmit a record of today's note if your PCP is in our system *If you do not have a primary care provider please contact the [facility] Resource line at [phone]. They will ask some questions about your medical history and help get you set up with a doctor in the community. *Return to Emergency Department if you should have any new, worsening or concerning symptoms, such as [fever greater than 101 F, shaking chills, worsening pain, persistent vomiting or other bothersome symptoms] Prescriptions: New doxycycline hyclate 100 mg tablet 100 mg PO BID Qty: 20 0RF No Action (DME) Glucose: Test Strips 0 .Route .MEDSUPPLY Qty: 100 11RF Dose Instruction: As directed Rx Instructions: One Touch Ultra strips. Use to check blood sugar 3 times a day furosemide [Lasix] 20 mg tablet 20 mg PO DAILY Qty: 90 1RF Jardiance 25 mg tablet 25 mg PO DAILY insulin lispro 100 unit/mL solution 30 unit SUBCUT BID Qty: 60 4RF Rx Instructions: with meals atorvastatin [Lipitor] 40 mg tablet 40 mg PO BEDTIME Qty: 90 3RF omeprazole 40 mg capsule,delayed release(DR/EC) 40 mg PO DAILY Qty: 90 2RF metoprolol succinate 200 mg tablet extended release 24 hr 200 mg PO DAILY Qty: 90 2RF Patient Comments: patient states took 100mg 11/04/18 metformin 1,000 mg tablet 1,000 mg PO BIDCC Qty: 180 1RF Patient Comments: patient states took 500mg 11/04/18 fexofenadine 180 mg tablet 180 mg PO BEDTIME Qty: 90 3RF diltiazem HCl 120 mg capsule,extended release 12 hr 120 mg PO BID Qty: 180 2RF insulin syringe-needle U-100 [BD Insulin Syringe Ultra-Fine] 1 mL 31 gauge x 5/16 syringe See Rx Instructions .ROUTE .COMPLEX Qty: 100 3RF Dose Instruction: use 3 times a day with insulin Rx Instructions: use 3 times a day with insulin gabapentin 300 mg capsule See Rx Instructions .ROUTE .COMPLEX Qty: 180 0RF Dose Instruction: TAKE ONE CAPSULE BY MOUTH TWICE DAILY Rx Instructions: TAKE ONE CAPSULE BY MOUTH TWICE DAILY lisinopril 40 mg tablet 40 mg PO DAILY Qty: 90 1RF Lantus U-100 Insulin 100 unit/mL solution 80 unit SUBCUT BID Qty: 50 5RF oxycodone-acetaminophen 5-325 mg tablet 1 tab PO BID PRN (Reason: pain) Qty: 60 0RF meloxicam 7.5 mg tablet 7.5 mg PO BIDCC Qty: 180 1RF (DME) Glucose: Home Monitoring Kit 0 .Route .MEDSUPPLY Qty: 1 0RF Dose Instruction: As directed Rx Instructions: Use to check blood sugar 3 times a day nystatin 100,000 unit/gram powder 1 applic TOP DAILY Qty: 30 1RF fluoxetine 20 mg capsule 20 mg PO DAILY Qty: 90 3RF amoxicillin-pot clavulanate [Augmentin] 500-125 mg tablet 1 tab PO BID Qty: 20 0RF (DME) DISABLED PARKING PERMIT See Rx Instructions .ROUTE .MEDSUPPLY Qty: 1 0RF Rx Instructions: I FIND THIS PATIENT TO BE MEDICALLY DISABLED AND QUALIFIED FOR DISABLE PARKING INDICATED, AND SIGNED ON THE ACCOMPANYING [employer] APPLICATION FOR INDIVIDUALS cyclobenzaprine 10 mg tablet 10 mg PO TID PRN (Reason: muscle spasm) Qty: 12 0RF Referrals: Andry Montenegro MD [Primary Care Provider] - Stand Alone Forms: Patient Portal/API
[2022-11-18 01:56] VITALS: BP 180/81; PULSE 57; O2SAT 94
[2022-11-18 02:00] VITALS: BP 173/84; PULSE 57; O2SAT 94
[2022-11-18] MEDS: DOXYCYCLINE HYCLATE 100 MG TABLET PO (02:02)
== END 2022-11-18 02:10 | disposition home or self-care (01) ==
PROVIDERS: Emergency Provider Emergency Medicine; PCP Pediatrics
DX: L03.116 Cellulitis of left lower limb (principal); L03.115 Cellulitis of right lower limb; R60.9 Edema, unspecified
CPT/HCPCS: 36415; 80053; 82550; 83605; 83735; 83880; 84484; 85025; 99283

== ENCOUNTER 2022-12-12 12:15 | Day surgery (SDC) | payer OTHER, SELFPAY ==
[2021-02-06 15:11] VITALS: BMI 51.5
[2022-12-12 12:38] VITALS: BP 208/103; PULSE 75; RESP 16; TEMP 36.1; O2SAT 98; BMI 56.2
--- NOTE | 2022-12-12 13:47 | SUR.PREOP ---
Procedure canceled. Patient left via personal wheelchair accompanied by son at 1443.
== END 2022-12-12 12:20 | disposition home or self-care (01) ==
PROVIDERS: PCP Pediatrics; Referring Provider Surgery; Visit Provider Surgery
DX: Z12.11 Encounter for screening for malignant neoplasm of colon (principal); Z53.8 Procedure and treatment not carried out for other reasons
CPT/HCPCS: 45380; J2704

== ENCOUNTER 2023-03-12 11:49 | Emergency (ER) | payer OTHER, SELFPAY ==
[2021-02-06 15:11] VITALS: BMI 51.5
[2023-03-12 12:03] VITALS: BP 174/75; PULSE 69; RESP 18; TEMP 36.6; O2SAT 93; BMI 54.9
--- NOTE | 2023-03-12 12:08 | DI.RAD.S_ITS ---
PROCEDURE: XR HAND RT MIN 3V INDICATIONS: pain, swelling TECHNIQUE: 3 views of the hand(s) acquired. COMPARISON: None. FINDINGS: Bones: No fractures or dislocations. Diffuse DIP joint degeneration and juxta-articular lucencies consistent with subchondral cystic change versus bony erosions, worse in the 2nd, 3rd and 4th digits. No suspicious bony lesions. Soft tissues: No suspicious soft tissue calcifications. Moderate diffuse soft tissue swelling of the hand. IMPRESSION: 1. No acute bony abnormality. 2. Diffuse DIP joint degeneration and juxta-articular lucencies consistent with subchondral cystic change versus bony erosions, worse in the 2nd, 3rd and 4th digits. Findings may represent osteoarthritis or inflammatory arthritis. Dictated by: Magda Márquez M.D. on 03/12/2023 at 12:35 Approved by: Magda Márquez M.D. on 03/12/2023 at 12:39
--- NOTE | 2023-03-12 14:22 | ED_ITS ---
HPI - Trauma <Marvin Armenta PA-C - Last Filed: 03/12/23 14:35> General Chief Complaint: Extremity Injury, Upper Stated Complaint: icedpacklastnight/woke up with right hand swollen Time Seen by Provider: 03/12/23 14:20 History of Present Illness HPI narrative: This is a 67-year-old female presents emergency department due to right wrist and hand pain onset yesterday. She reports the pain beginning yesterday as well as noticing a ?lump? to the dorsal aspect of the right wrist. She also knows some swelling to the knuckles of her right hand. Denies any fevers, numbness, or any other concerning signs or symptoms. Related Data Home Medications Medication Instructions Recorded Confirmed empagliflozin 25 mg tablet 25 mg PO DAILY 09/12/21 03/04/23 (Jardiance) Previous Rx's Medication Instructions Recorded furosemide 20 mg tablet (Lasix) 20 mg PO DAILY #90 tabs 07/03/20 cyclobenzaprine 10 mg tablet 10 mg PO TID PRN muscle spasm #12 03/01/22 tabs metformin 1,000 mg tablet 1,000 mg PO BIDCC #180 tabs 03/18/22 omeprazole 40 mg capsule,delayed 40 mg PO DAILY #90 caps 03/18/22 release fluoxetine 20 mg capsule 20 mg PO DAILY #90 caps 04/17/22 fexofenadine 180 mg tablet 180 mg PO BEDTIME #90 tabs 05/27/22 diltiazem HCl 120 mg 120 mg PO BID #180 caps 06/27/22 capsule,extended release 12 hr DISABLED PARKING PERMIT #1 ea 10/01/22 meloxicam 7.5 mg tablet 7.5 mg PO BIDCC #180 tabs 11/05/22 mupirocin 2 % topical ointment 1 applic topical TID #22 grams 12/20/22 metoprolol succinate 200 mg 200 mg PO DAILY #90 tabs 12/23/22 tablet,extended release 24 hr gabapentin 300 mg capsule See Rx Instructions .Route 12/24/22 .COMPLEX #180 caps atorvastatin 40 mg tablet (Lipitor) 40 mg PO BEDTIME #90 tabs 12/27/22 insulin lispro 100 unit/mL 30 unit (0.3 mL) SUBCUT QAC #60 mL 12/27/22 subcutaneous solution lisinopril 40 mg tablet 40 mg PO DAILY #90 tabs 01/14/23 triamcinolone acetonide 0.1 % 1 applic topical BID #80 grams 01/29/23 topical cream insulin glargine 100 unit/mL 80 unit (0.8 mL) SUBCUT BID #50 mL 02/19/23 subcutaneous solution (Lantus U-100 Insulin) semaglutide 0.25 mg or 0.5 mg (2 0.25 mg (0.368 mL) SUBCUT QWEEK #3 02/19/23 mg/3 mL) subcutaneous pen injector mL nystatin 100,000 unit/gram topical 1 applic topical DAILY #30 grams 02/24/23 powder ([facility]) insulin syringe-needle U-100 1 mL See Rx Instructions .Route 03/03/23 31 gauge x 5/16 (BD Insulin .COMPLEX #100 ea Syringe Ultra-Fine) Glucose: Home Monitoring Kit #1 unit 03/04/23 Glucose: Test Strips #100 ea 03/04/23 fluticasone propionate 50 1 spray intranasal BID #16 grams 03/04/23 mcg/actuation nasal spray,suspension (Flonase Allergy Relief) lancets 31 gauge (Comfort Touch #100 ea 03/04/23 Ultra Thin Lancets) oxycodone-acetaminophen 5 mg-325 1 tab PO BID PRN pain 28 days #56 03/04/23 mg tablet tabs Allergies Allergy/AdvReac Type Severity Reaction Status Date / Time No Known Drug Allergies Allergy Verified 03/12/23 12:08 Review of Systems <Marvin Armenta PA-C - Last Filed: 03/12/23 14:35> Review of Systems Narrative: GENERAL: Denies chills, fatigue, malaise, fever, sweats. HEENT: Denies sinus pain, ear pain, sore throat, difficulty swallowing, dizziness. RESPIRATORY: Denies dyspnea, cough, wheezing, hemoptysis, sputum. CARDIOVASCULAR: Denies chest pain, palpitations, orthopnea, edema, GASTROINTESTINAL: Denies nausea, vomiting, abdominal pain, diarrhea, constipation, melena. : Denies dysuria, frequency, incontinence, hematuria, urinary retention. MUSCULOSKELETAL: ?Lump? to the right wrist, swelling to the knuckles of the hand. SKIN: Denies rash, skin lesions, or other NEUROLOGIC: Denies weakness, headache, numbness, change in speech, confusion, seizures, incoordination. PSYCHIATRIC: No concerning psychosocial issues. 12 point review of systems is negative except for those stated above Patient History <Marvin Armenta PA-C - Last Filed: 03/12/23 14:35> Medical History (Updated 03/12/23 @ 14:35 by Marvin Armenta PA-C) Urinary incontinence Heart disease Congestive heart failure Osteoarthritis Morbid obesity with BMI of 50.0-59.9, adult Diabetes mellitus Hypertension Sleep apnea Peripheral neuropathy Surgical History (Updated 02/12/23 @ 15:02 by Dhruv Groves MD) History of hysterectomy History of cholecystectomy History of knee replacement (01/2015) Family History Mother Alcohol abuse Skin cancer Father Heart attack Social History household members: family and children Smoking Status: Never smoker Smoking Status: Never smoker alcohol intake frequency: holidays/special occasions only Substance Use Type: does not use Exam <Marvin Armenta PA-C - Last Filed: 03/12/23 14:35> Narrative Exam Narrative: GENERAL: Well-developed patient, in mild distress. HEAD: Atraumatic. Normocephalic. EYES: Pupils equal round and reactive. Extraocular motions intact. No scleral icterus. No injection or drainage. ENT: Nose without bleeding, purulent drainage. Throat without erythema, tonsillar hypertrophy or exudate. Airway patent. NECK: Trachea midline. Non tender CARDIOVASCULAR: Regular rate and rhythm without murmurs, gallops, or rubs. RESPIRATORY: Clear to auscultation. Breath sounds equal bilaterally. No wheezes, rales, or rhonchi. GASTROINTESTINAL: Abdomen soft, non-tender, nondistended. EXTREMITIES: Ganglion cyst to the dorsal aspect of the right wrist as well as mild edema to the MCP joints of the right hand. No erythema cool to the touch. BACK: Nontender without deformity or crepitance. No flank tenderness. NEURO: AOx3. SKIN: No rash or erythema of visible areas Initial Vital Signs Initial Vital Signs: Vital Signs Temperature 97.9 F 03/12/23 12:03 Pulse Rate 69 03/12/23 12:03 Respiratory Rate 18 03/12/23 12:03 Blood Pressure 174/75 H 03/12/23 12:03 Pulse Oximetry 93 03/12/23 12:03 Oxygen Delivery Method Room Air 03/12/23 12:03 <DO Chris Chaudhry Last Filed: 03/13/23 08:57> Initial Vital Signs Initial Vital Signs: Vital Signs Temperature 97.9 F 03/12/23 12:03 Pulse Rate 69 03/12/23 12:03 Respiratory Rate 18 03/12/23 12:03 Blood Pressure 174/75 H 03/12/23 12:03 Pulse Oximetry 93 03/12/23 12:03 Oxygen Delivery Method Room Air 03/12/23 12:03 Course <Marvin Armenta PA-C - Last Filed: 03/12/23 14:35> Orders Ordered: ED Orders 03/12/23 12:08 XR hand RT min 3V Stat Vital Signs Vital signs: Vital Signs - 8 hr 03/12/23 12:03 Temperature 97.9 F Pulse Rate 69 Respiratory Rate 18 Blood Pressure 174/75 H Pulse Oximetry 93 Oxygen Delivery Method Room Air <DO Chris Chaudhry Last Filed: 03/13/23 08:57> Orders Ordered: ED Orders 03/12/23 12:08 XR hand RT min 3V Stat Vital Signs Vital signs: Vital Signs - 8 hr 03/12/23 12:03 Temperature 97.9 F Pulse Rate 69 Respiratory Rate 18 Blood Pressure 174/75 H Pulse Oximetry 93 Oxygen Delivery Method Room Air MDM - Trauma <VINCE Sanchez Last Filed: 03/12/23 14:35> Imaging Data Extremity x-ray #1: Radiologist's Impression: [place] [address] XRay Report Signed Patient: Donald Jules MR#: [id number] : 1955 Acct:[id number] Age/Sex: 67 / F Date of Service: 03/12/23 Loc: ED Accession Number: [id number] Procedure: XR hand RT min 3V Ordering Provider: Michael Lopez D.O. PROCEDURE: XR HAND RT MIN 3V INDICATIONS: pain, swelling TECHNIQUE: 3 views of the hand(s) acquired. COMPARISON: None. FINDINGS: Bones: No fractures or dislocations. Diffuse DIP joint degeneration and juxta- articular lucencies consistent with subchondral cystic change versus bony erosions, worse in the 2nd, 3rd and 4th digits. No suspicious bony lesions. Soft tissues: No suspicious soft tissue calcifications. Moderate diffuse soft tissue swelling of the hand. IMPRESSION: 1. No acute bony abnormality. 2. Diffuse DIP joint degeneration and juxta-articular lucencies consistent with subchondral cystic change versus bony erosions, worse in the 2nd, 3rd and 4th digits. Findings may represent osteoarthritis or inflammatory arthritis. Dictated by: Magda Márquez M.D. on 03/12/2023 at 12:35 Approved by: Magda Márquez M.D. on 03/12/2023 at 12:39 MDM Narrative Medical decision making narrative: MDM * differential diagnosis includes but not limited to rheumatoid arthritis, septic arthritis, osteoarthritis, fracture * Prior records reviewed: Patient has not been here for similar symptoms in the past. * My lab interpretation: None obtained * My imgaing interpretation: X-ray findings as above. No fractures. Did show evidence of possible osteoarthritis or rheumatoid arthritis. * Clinical Decision Rules/Scores evaluated: None * Independent discussions with: None ED Course: This is a 67-year-old female presents to the emergency department due to suspected ganglion cyst of the right wrist. Recommended she speak with the primary care provider for possible referral to Orthopedics for drainage. The knuckles also appeared mildly edematous. Maybe possibly due to the osteoarthritis or rheumatoid arthritis noted on the x-ray. There was no evidence of infection and closed with the touch. Recommended she follow up with primary care for these findings. Recommended elevation and ice. Shared Decision Making: Discussed plan with the patient who is comfortable with the plan. Social Considerations: None Disposition: Discharged to home Discharge Plan Departure Patient Disposition: Home Clinical Impression: Ganglion cyst, Arthritis Instructions: DI Ganglion Cyst Activity Restrictions/Additional Instructions: Thank you for coming to the [facility] Emergency Department today. I suspect was on your risk of something called a ganglion cyst. Please read the attached information for more information about this. I recommend you speak with the primary care provider for possible referral to Orthopedics for further evaluation. You may ice the wrist and joints to help with the pain inflammation. I also recommend elevation and ibuprofen. The x-ray showed no fractures but did show evidence of possible arthritis. Please follow up with the primary care provider about this. I hope you feel better soon. Please follow up with your primary care provider within a week if your symptoms continue. If you do not have a primary care provider please contact the [facility] Resource line at [phone]. They will ask some questions about your medical history and help you get set up with a provider in the community. Prescriptions: No Action triamcinolone acetonide 0.1 % cream 1 applic topical BID Qty: 80 0RF Rx Instructions: Apply to affected area on both legs twice daily oxycodone-acetaminophen 5-325 mg tablet 1 tab PO BID PRN (Reason: pain) 28 Days Qty: 56 0RF fluticasone propionate [Flonase Allergy Relief] 50 mcg/actuation spray,suspension 1 spray intranasal BID Qty: 16 3RF Rx Instructions: administer into each nostril (DME) Glucose: Home Monitoring Kit 0 .Route .MEDSUPPLY Qty: 1 0RF Dose Instruction: As directed Rx Instructions: Use to check blood sugar 3 times a day (DME) Glucose: Test Strips 0 .Route .MEDSUPPLY Qty: 100 11RF Dose Instruction: As directed Rx Instructions: One Touch Ultra strips. Use to check blood sugar 2 times a day (DME) Comfort Touch Ult Thin Lancets 31 gauge misc See Rx Instructions .Route Qty: 100 3RF Rx Instructions: As directed furosemide [Lasix] 20 mg tablet 20 mg PO DAILY Qty: 90 1RF Jardiance 25 mg tablet 25 mg PO DAILY omeprazole 40 mg capsule,delayed release(DR/EC) 40 mg PO DAILY Qty: 90 2RF metformin 1,000 mg tablet 1,000 mg PO BIDCC Qty: 180 1RF Patient Comments: patient states took 500mg 11/04/18 fexofenadine 180 mg tablet 180 mg PO BEDTIME Qty: 90 3RF diltiazem HCl 120 mg capsule,extended release 12 hr 120 mg PO BID Qty: 180 2RF meloxicam 7.5 mg tablet 7.5 mg PO BIDCC Qty: 180 1RF metoprolol succinate 200 mg tablet extended release 24 hr 200 mg PO DAILY Qty: 90 1RF Patient Comments: patient states took 100mg 11/04/18 gabapentin 300 mg capsule See Rx Instructions .ROUTE .COMPLEX Qty: 180 2RF Dose Instruction: TAKE ONE CAPSULE BY MOUTH TWICE DAILY Rx Instructions: TAKE ONE CAPSULE BY MOUTH TWICE DAILY atorvastatin [Lipitor] 40 mg tablet 40 mg PO BEDTIME Qty: 90 1RF Rx Instructions: PLEASE CALL IN TO SCHEDULE NEW PATIENT APPT W/NEW PROVIDER. THANKS 12/27/22. insulin lispro 100 unit/mL solution 30 unit SUBCUT QAC MDD 240 units Qty: 60 4RF Rx Instructions: with meals lisinopril 40 mg tablet 40 mg PO DAILY Qty: 90 1RF semaglutide 0.25 mg or 0.5 mg (2 mg/3 mL) pen injector 0.25 mg SUBCUT QWEEK Qty: 3 2RF Rx Instructions: for 4 weeks; then increase to 0.5 mg every week Lantus U-100 Insulin 100 unit/mL solution 80 unit SUBCUT BID Qty: 50 5RF nystatin [Nyamyc] 100,000 unit/gram powder 1 applic topical DAILY Qty: 30 0RF insulin syringe-needle U-100 [BD Insulin Syringe Ultra-Fine] 1 mL 31 gauge x 5/16 syringe See Rx Instructions .ROUTE .COMPLEX Qty: 100 3RF Dose Instruction: use 3 times a day with insulin Rx Instructions: use 3 times a day with insulin fluoxetine 20 mg capsule 20 mg PO DAILY Qty: 90 3RF (DME) DISABLED PARKING PERMIT See Rx Instructions .ROUTE .MEDSUPPLY Qty: 1 0RF Rx Instructions: I FIND THIS PATIENT TO BE MEDICALLY DISABLED AND QUALIFIED FOR DISABLE PARKING INDICATED, AND SIGNED ON THE ACCOMPANYING [employer] APPLICATION FOR INDIVIDUALS mupirocin 2 % ointment 1 applic topical TID Qty: 22 1RF Rx Instructions: apply to any open ulcer/skin breakdown for 5-7 days total each time cyclobenzaprine 10 mg tablet 10 mg PO TID PRN (Reason: muscle spasm) Qty: 12 0RF Referrals: Dhruv Groves MD [Primary Care Provider] - Stand Alone Forms: Patient Portal/API ED Sign-out <Michael Lopez DO - Last Filed: 03/13/23 08:57> Cosign ED Attending [place] Attestation: I was immediately available in the department for consultation. Documentation has been reviewed. I agree with assessment and plan.
--- NOTE | 2023-03-12 14:49 | PC.NURSE ---
Awoke with pain in her wrists. CMS in tact. The patient does not remember how or why her wrist hurts.
[2023-03-12 14:51] VITALS: BP 189/84; PULSE 64; RESP 14; O2SAT 94
== END 2023-03-12 14:53 | disposition home or self-care (01) ==
PROVIDERS: Emergency Provider Physician Assistant Medical; PCP Family Medicine
DX: M67.431 Ganglion, right wrist (principal); M19.031 Primary osteoarthritis, right wrist
CPT/HCPCS: 73130; 99281

== ENCOUNTER → 2023-03-19 15:55 | Outpatient (CLI) | payer OTHER, SELFPAY ==
[2021-02-06 15:11] VITALS: BMI 51.5
--- NOTE | 2023-03-19 16:18 | DI.RAD.S_ITS ---
PROCEDURE: XR CHEST 2V INDICATIONS: L sided rib pain TECHNIQUE: 2 views of the chest were acquired. COMPARISON: [facility], , XR CHEST 2V, 01/27/2021, 17:24. FINDINGS: Surgical changes and devices: None. Lungs and pleura: Lungs are clear. No pleural effusions or pneumothorax. Mediastinum: Mediastinal contours are normal. Mild cardiomegaly. Bones and chest wall: No suspicious bony abnormalities. Soft tissues appear unremarkable. IMPRESSION: Mild cardiomegaly. No evidence acute pulmonary process. Dictated by: Angus Jimenez M.D. on 03/19/2023 at 19:18 Approved by: Angus Jimenez M.D. on 03/19/2023 at 19:18
[2023-03-19 17:50] LABS: Alanine Aminotransferase 28 IU/L (<35); Albumin 3.9 g/dL (3.5-5.0); Albumin Globulin Ratio 1.1 (1.0-2.8); Alkaline Phosphatase 86 U/L (38-126); Aspartate Aminotransferase 31 IU/L (14-36); BUN Creatinine Ratio 11.5 (6-22); Blood Urea Nitrogen 9 mg/dL (7-17); Calcium 9.1 mg/dL (8.4-10.2); Carbon Dioxide 29 mmol/L (22-32); Chloride 99 mmol/L (98-107); Estimated Glomerular Filt Rate > 60 mL/min (>60); Globulin 3.7 g/dL (1.7-4.1); Glucose 144 mg/dL (80-110); HEMOLYSIS < 15 (0-50); Magnesium 1.7 mg/dL (1.6-2.3); Phosphorous 3.4 mg/dL (2.8-4.1); Potassium 4.3 mmol/L (3.4-5.1); Sodium 136 mmol/L (137-145); Total Protein 7.6 g/dL (6.3-8.2)
[2023-03-19 18:18] LABS: TSH w/ Reflex to FT4 7.67 uIU/mL (0.47-4.68)
[2023-03-19 19:09] LABS: Free T4, Direct Thyroxine 1.06 ng/dL (0.78-2.19)
== END ==
LOC: LAB 16:03 → RAD 16:13
PROVIDERS: PCP Family Medicine; Referring Provider Family Medicine; Visit Provider Family Medicine
DX: I51.7 Cardiomegaly (principal); R07.81 Pleurodynia; M62.838 Other muscle spasm; R60.9 Edema, unspecified
CPT/HCPCS: 36415; 71046; 80053; 83735; 84100; 84439; 84443

== ENCOUNTER → 2023-04-08 | Outpatient (CLI) | payer OTHER, SELFPAY ==
[2021-02-06 15:11] VITALS: BMI 51.5
--- NOTE | 2023-04-08 | DI.MG.S_ITS ---
BILATERAL DIGITAL SCREENING MAMMOGRAM 3D/2D WITH CAD: 04/08/2023 CLINICAL: Routine screening. Comparison is made to exams dated: 01/18/2022 mammogram, 12/15/2020 mammogram, and 09/11/2018 mammogram - [facility]. There are scattered areas of fibroglandular density in both breasts (category b / 25%-50% glandular tissue). Current study was also evaluated with a Computer Aided Detection (CAD) system. There are benign vascular calcifications in both breasts. No significant masses, calcifications, or other findings are seen in either breast. There has been no significant interval change. IMPRESSION: BENIGN There is no mammographic evidence of malignancy. A 1 year screening mammogram is recommended. Based on the Tyrer Cuzick model (a risk assessment model) the patient's lifetime risk is 3.9% and her 10 year risk is 2.0%. According to the ACR, ACS, and NCCN guidelines, an annual breast MRI exam along with mammogram is recommended if the patient's lifetime risk is 20% or greater. This exam was interpreted at Station ID: [id number]. NOTE: For mammograms, a report in lay terms will be sent to the patient. Approximately 15% of breast malignancies will not be visualized mammographically. In the management of a palpable breast mass, a negative mammogram must not discourage biopsy of a clinically suspicious lesion. Electronically Signed By: Missy lazaro/jena:04/09/2023 09:17:59 letter sent: Normal Exam ACR BI-RADS Category 2: Benign Finding(s) 3342F
== END ==
PROVIDERS: PCP Family Medicine; Referring Provider Family Medicine; Visit Provider Family Medicine
DX: Z12.31 Encounter for screening mammogram for malignant neoplasm of breast (principal)
CPT/HCPCS: 77063; 77067

== ENCOUNTER → 2023-07-10 15:28 | Outpatient (CLI) | payer OTHER, SELFPAY ==
[2021-02-06 15:11] VITALS: BMI 51.5
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
== END ==
LOC: DIET 15:31
PROVIDERS: PCP Family Medicine; Referring Provider Family Medicine; Visit Provider Family Medicine
DX: E11.9 Type 2 diabetes mellitus without complications (principal); Z79.84 Long term (current) use of oral hypoglycemic drugs; Z79.85 Long-term (current) use of injectable non-insulin antidiabetic drugs; Z79.4 Long term (current) use of insulin
CPT/HCPCS: 97802

== ENCOUNTER → 2023-09-09 11:58 | Outpatient (CLI) | payer OTHER, SELFPAY ==
[2021-02-06 15:11] VITALS: BMI 51.5
[2023-09-09 12:37] LABS: D Dimer 551 ng/ml (<500)
[2023-09-09 13:15] LABS: Hematocrit 35.3 % (36-46); Hemoglobin 11.8 g/dL (12.0-16.0); Mean Corpuscular HGB Conc 33.3 % (30-36); Mean Corpuscular Hemoglobin 29.3 PG (26-34); Mean Corpuscular Volume 88.1 fL (80-100); Platelet Count 289 X10^3/uL (150-400); Red Blood Cell Count 4.01 X10^6/uL (4.0-5.2); Red Cell Distribution Width 13.8 % (11.6-14.8); White Blood Cell Count 9.2 X10^3/uL (4.5-11.0)
[2023-09-09 13:36] LABS: Hemoglobin A1C% w Est Avg Glu 7.3 % (4.0-6.0)
[2023-09-09 13:55] LABS: Cholesterol 102 mg/dL (140-199); HDL Cholesterol 39 mg/dL (40-60); LDL Cholesterol Calculated 35 mg/dL (<100); Triglycerides 141 mg/dL (35-150)
[2023-09-11 16:53] LABS: Hep C Virus Ab w/Reflex Quant NEGATIVE s/c (NEGATIVE)
== END ==
PROVIDERS: PCP Family Medicine; Referring Provider Family Medicine; Visit Provider Family Medicine
DX: I10 Essential (primary) hypertension (principal); E11.610 Type 2 diabetes mellitus with diabetic neuropathic arthropathy; Z79.4 Long term (current) use of insulin; E11.21 Type 2 diabetes mellitus with diabetic nephropathy; E11.69 Type 2 diabetes mellitus with other specified complication; E78.5 Hyperlipidemia, unspecified; E66.01 Morbid (severe) obesity due to excess calories; Z68.43 Body mass index [BMI] 50.0-59.9, adult; M79.605 Pain in left leg; Z11.59 Encounter for screening for other viral diseases; M79.89 Other specified soft tissue disorders
CPT/HCPCS: 36415; 80061; 83036; 85027; 85379; 86803

== ENCOUNTER → 2023-09-10 16:09 | Outpatient (CLI) | payer OTHER, SELFPAY ==
[2021-02-06 15:11] VITALS: BMI 51.5
--- NOTE | 2023-09-10 16:09 | DI.US.S_ITS ---
PROCEDURE: US [facility] VENOUS LOW EXTREM LT INDICATIONS: lower leg pain and swelling TECHNIQUE: Real-time imaging, as well as color and pulse Doppler interrogation, were performed of the lower extremity deep veins from the inguinal ligament to the popliteal fossa, with documentation of the visualized calf veins. COMPARISON: [facility], , [facility] VENOUS LOW EXTREM LT, 07/27/2019, 13:05. FINDINGS: The common femoral, femoral, popliteal, and the visualized calf veins are normally compressible, and free of intraluminal thrombus. Color and pulse Doppler demonstrate normal phasic intraluminal flow. There is normal augmentation response to distal compression maneuver. This study is limited by body habitus. IMPRESSION: No findings of lower extremity deep venous thrombosis. Dictated by: Rio Jackson M.D. on 09/10/2023 at 16:18 Approved by: Rio Jackson M.D. on 09/10/2023 at 16:19
== END ==
PROVIDERS: PCP Family Medicine; Referring Provider Family Medicine; Visit Provider Family Medicine
DX: M79.605 Pain in left leg (principal); M79.89 Other specified soft tissue disorders
CPT/HCPCS: 93971

== ENCOUNTER → 2023-10-14 13:20 | Outpatient (CLI) | payer OTHER, SELFPAY ==
[2021-02-06 15:11] VITALS: BMI 51.5
== END ==
PROVIDERS: PCP Family Medicine; Referring Provider Student in an Organized Health Care Education/Training Program; Visit Provider Surgery
DX: I89.0 Lymphedema, not elsewhere classified (principal); E11.628 Type 2 diabetes mellitus with other skin complications; I50.9 Heart failure, unspecified
CPT/HCPCS: 99203; 99213

== ENCOUNTER → 2023-12-09 13:38 | Outpatient (CLI) | payer OTHER, SELFPAY ==
[2021-02-06 15:11] VITALS: BMI 51.5
[2023-12-09 14:32] LABS: Appearance Urine UA SL CLOUDY; Bilirubin Urine UA NEGATIVE (NEGATIVE); Color Urine UA YELLOW; Glucose Urine UA 3+ g/dL (Negative); Ketones Urine UA NEGATIVE (NEGATIVE); Leukocyte Esterase Urine UA NEGATIVE (NEGATIVE); Nitrite Urine UA NEGATIVE (Negative); Occult Blood Urine UA NEGATIVE (Negative); Protein Urine UA NEGATIVE (Negative); Specific Gravity Urine UA 1.015 (1.000-1.035)
[2023-12-09 14:38] LABS: Bacteria Urine Many (>30); Culture Indicated Urine Specimen Cultured; RBC Urine None Seen (0-5/HPF); Squamous Epithelial Cell Urine 0-1 /HPF (0-5/HPF); Urine Volume 10mL (spun); WBC Urine 0-1/HPF (0-5/HPF)
[2023-12-09 16:46] LABS: Creatinine Urine Random 103.35 mg/dL
[2023-12-09 16:49] LABS: Microalbumin Urine Random 8.2 mg/dL (0-1.6)
== END ==
PROVIDERS: PCP Family Medicine; Referring Provider Family Medicine; Visit Provider Family Medicine
DX: R30.0 Dysuria (principal); E11.610 Type 2 diabetes mellitus with diabetic neuropathic arthropathy; I10 Essential (primary) hypertension; E11.21 Type 2 diabetes mellitus with diabetic nephropathy; E11.69 Type 2 diabetes mellitus with other specified complication; E78.5 Hyperlipidemia, unspecified; E66.01 Morbid (severe) obesity due to excess calories; Z68.43 Body mass index [BMI] 50.0-59.9, adult; Z79.4 Long term (current) use of insulin
CPT/HCPCS: 81001; 82043; 82570; 87077; 87086; 87186

== ENCOUNTER → 2024-04-20 16:57 | Outpatient (CLI) | payer OTHER, SELFPAY ==
[2024-01-13 12:14] VITALS: BMI 51.5
--- NOTE | 2024-04-20 | DI.MG.S_ITS ---
BILATERAL DIGITAL SCREENING MAMMOGRAM 3D/2D WITH CAD: 04/20/2024 CLINICAL: Routine screening. Comparison is made to exams dated: 04/08/2023 mammogram, 01/18/2022 mammogram, and 12/15/2020 mammogram - [facility]. There are scattered areas of fibroglandular density (category b / 25%-50% glandular tissue). Current study was also evaluated with a Computer Aided Detection (CAD) system. There is a round high density asymmetry in the right breast anterior depth lateral region seen on the craniocaudal view only. This is increased in size. No other significant masses, calcifications, or other findings are seen in either breast. IMPRESSION: INCOMPLETE: NEED ADDITIONAL IMAGING EVALUATION The round high density asymmetry in the right breast is indeterminate. Additional views with possible ultrasound are recommended. Based on the Tyrer Cuzick model (a risk assessment model) the patient's lifetime risk is 3.7% and her 10 year risk is 2.0%. According to the ACR, ACS, and NCCN guidelines, an annual breast MRI exam along with mammogram is recommended if the patient's lifetime risk is 20% or greater. This exam was interpreted at Station ID: [id number]. NOTE: For mammograms, a report in lay terms will be sent to the patient. Approximately 15% of breast malignancies will not be visualized mammographically. In the management of a palpable breast mass, a negative mammogram must not discourage biopsy of a clinically suspicious lesion. Electronically Signed By: Leonor chaves/jena:04/21/2024 14:23:19 letter sent: Additional Imaging Needed ACR BI-RADS Category 0: Incomplete: Need Additional Imaging Evaluation
== END ==
LOC: MAMMO 16:59
PROVIDERS: PCP Family Medicine; Referring Provider Family Medicine; Visit Provider Family Medicine
DX: Z12.31 Encounter for screening mammogram for malignant neoplasm of breast (principal)
CPT/HCPCS: 77063; 77067

== ENCOUNTER → 2024-06-30 13:23 | Outpatient (CLI) | payer OTHER, SELFPAY ==
[2024-01-13 12:14] VITALS: BMI 51.5
--- NOTE | 2024-06-30 13:26 | DI.MG.S_ITS ---
MM special view RT: 06/30/2024. BI-RADS: 1 CLINICAL: 69-year old female for right diagnostic mammogram that is a recall from screening, bilateral, digital, tomosynthesis, w/mammo cad on 04/20/2024. Tyrer-Cuzick lifetime risk of 4.7%. No personal or first-degree family history of breast cancer. PRIOR EXAMS 04/20/2024, 04/08/2023, 01/18/2022, 12/15/2020, 09/11/2018, 05/13/2017, 04/22/2016. MAMMOGRAPHY TECHNIQUE: 2D and 3D (tomosynthesis) digital mammographic views obtained, with additional images as needed for full coverage. Current study was also evaluated with a Computer Aided Detection (CAD) system. DENSITY Right: C. The breasts are heterogeneously dense, which may obscure small masses. MAMMOGRAPHY FINDINGS Right: CC only, Outer, Anterior depth: No suspicious mass, asymmetry, microcalcification, or other abnormality seen. The previously seen asymmetry is no longer visualized with the nipple in profile, likely representing benign fibroglandular tissue. IMPRESSION: Right * No evidence of malignancy. RECOMMENDATIONS Bilateral * Annual screening mammography in ten months. OVERALL ASSESSMENT CATEGORY BI-RADS-1: Negative. The [employer] recommends annual screening mammography beginning at age 40 for women with average risk of breast cancer. ELECTRONICALLY SIGNED: Briana Brandt M.D. on 06/30/2024 at 03:13:09 PM PT Interpreting Station ID: [id number]
== END ==
PROVIDERS: PCP Family Medicine; Referring Provider Family Medicine; Visit Provider Family Medicine
DX: R92.8 Other abnormal and inconclusive findings on diagnostic imaging of breast (principal); R92.333 Mammographic heterogeneous density, bilateral breasts
CPT/HCPCS: 77065; G0279

== ENCOUNTER → 2024-09-29 10:01 | Outpatient (CLI) | payer OTHER, SELFPAY ==
[2024-01-13 12:14] VITALS: BMI 51.5
--- NOTE | 2024-09-29 10:05 | DI.RAD.S_ITS ---
PROCEDURE: XR SHOULDER LT MIN 2V INDICATIONS: shoulder pain TECHNIQUE: Three views of the left shoulder were acquired. COMPARISON: None. FINDINGS: Bones: A 1.7 cm exostosis projects from the superior cortex of the distal clavicle Acromioclavicular and glenohumeral joints: Mild degeneration acromioclavicular and glenohumeral joints. Soft tissues: No soft tissue swelling, calcification or mass. IMPRESSION: Chronic findings Dictated by: Elie Liu M.D. on 09/30/2024 at 12:46 Approved by: Elie Liu M.D. on 09/30/2024 at 12:47
--- NOTE | 2024-09-29 10:05 | DI.RAD.S_ITS ---
PROCEDURE: XR HAND LT MIN 3V INDICATIONS: hand pain TECHNIQUE: 3 views of the hand(s) acquired. COMPARISON: [facility], CR, XR HAND RT MIN 3V, 03/12/2023, 12:22. FINDINGS: Bones: There are no osseous abnormalities Joints: Moderate 1st CMC degeneration appreciated. There is moderate erosive osteoarthritis in all DIP joints and moderate degenerative change in all PIP joints and the 1st and 3rd MCP joint Soft tissues: No soft tissue abnormality. IMPRESSION: Multilevel erosive osteoarthritis and degeneration Dictated by: Elie Liu M.D. on 09/30/2024 at 12:43 Approved by: Elie Liu M.D. on 09/30/2024 at 12:44
--- NOTE | 2024-09-29 10:05 | DI.RAD.S_ITS ---
PROCEDURE: XR HAND RT MIN 3V INDICATIONS: hand pain TECHNIQUE: 3 views of the hand(s) acquired. COMPARISON: [facility], CR, XR HAND RT MIN 3V, 03/12/2023, 12:22. 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 Soft tissues: No soft tissue abnormality. IMPRESSION: Erosive osteoarthritis and degeneration progressing modestly since 2022 Dictated by: Elie Liu M.D. on 09/30/2024 at 12:44 Approved by: Elie Liu M.D. on 09/30/2024 at 12:45
--- NOTE | 2024-09-29 10:05 | DI.RAD.S_ITS ---
PROCEDURE: XR SHOULDER RT MIN 2V INDICATIONS: shoulder pain TECHNIQUE: Three views of the right shoulder were acquired. COMPARISON: None. FINDINGS: Bones: There are no osseous abnormalities. Acromioclavicular and glenohumeral joints: Minimal degenerative change Soft tissues: No soft tissue swelling, calcification or mass. IMPRESSION: Minimal degeneration of the acromioclavicular and glenohumeral joint Dictated by: Elie Liu M.D. on 09/30/2024 at 12:47 Approved by: Elie Liu M.D. on 09/30/2024 at 12:47
[2024-09-29 10:51] LABS: Add Manual Diff / Slide Review NO; Basophils Absolute Auto 100 /uL (0-100); Basophils Percent Auto 1.1 % (0-2); Eosinophils Absolute Auto 300 /uL (0-450); Hematocrit 38.5 % (36-46); Hemoglobin 13.1 g/dL (12.0-16.0); Lymphocytes Absolute Auto 2200 /uL (1100-4500); Lymphocytes Percent Auto 25.7 % (25-40); Mean Corpuscular Hemoglobin 30.5 PG (26-34); Mean Corpuscular Volume 89.7 fL (80-100); Monocytes Absolute Auto 400 /uL (0-900); Monocytes Percent Auto 4.3 % (3-14); Neutrophils Absolute Auto 5600 /uL (1500-7000); Neutrophils Percent Auto 65.9 % (50-75); Platelet Count 277 X10^3/uL (150-400); Red Blood Cell Count 4.29 X10^6/uL (4.0-5.2); Red Cell Distribution Width 13.4 % (11.6-14.8); White Blood Cell Count 8.6 X10^3/uL (4.5-11.0)
[2024-09-29 11:20] LABS: Alanine Aminotransferase 19 IU/L (<35); Albumin 4.6 g/dL (3.5-5.0); Albumin Globulin Ratio 1.4 (1.0-2.8); Alkaline Phosphatase 69 U/L (38-126); Aspartate Aminotransferase 20 IU/L (14-36); BUN Creatinine Ratio 23.4 (6-22); Bilirubin Total 1.1 mg/dL (0.2-1.3); Blood Urea Nitrogen 18 mg/dL (7-17); C-Reactive Protein Quant < 0.5 mg/dL (<1.0); Calcium 9.5 mg/dL (8.4-10.2); Carbon Dioxide 23 mmol/L (22-32); Chloride 105 mmol/L (98-107); Cholesterol 139 mg/dL (140-199); Estimated Glomerular Filt Rate > 60 mL/min (>60); Globulin 3.4 g/dL (1.7-4.1); Glucose 108 mg/dL (70-99); HDL Cholesterol 49 mg/dL (40-60); HEMOLYSIS < 15 (0-50); LDL Cholesterol Calculated 73 mg/dL (<100); Potassium 4.2 mmol/L (3.4-5.1); Sodium 139 mmol/L (137-145); Triglycerides 84 mg/dL (35-150)
[2024-09-29 11:26] LABS: Rheumatoid Factor < 8.6 IU/mL (<12.0)
[2024-09-29 11:34] LABS: Vitamin D 25 Hydroxy (D3) 16.5 ng/mL (30.0-100.0)
[2024-09-29 11:36] LABS: Erythrocyte Sedimentation Rate 24 MM/HR (0-20)
[2024-10-01 11:10] LABS: CCP Antibodies IgG/IgA 10 units (0-19)
[2024-10-03 01:07] LABS: ANA Screen, IFA Negative (.)
== END ==
PROVIDERS: PCP Family Medicine; Referring Provider Family Medicine; Visit Provider Family Medicine
DX: M79.643 Pain in unspecified hand (principal); M89.49 Other hypertrophic osteoarthropathy, multiple sites; M25.519 Pain in unspecified shoulder; E11.610 Type 2 diabetes mellitus with diabetic neuropathic arthropathy; I10 Essential (primary) hypertension; E11.69 Type 2 diabetes mellitus with other specified complication; E78.5 Hyperlipidemia, unspecified; E66.01 Morbid (severe) obesity due to excess calories; M19.049 Primary osteoarthritis, unspecified hand; E55.9 Vitamin D deficiency, unspecified; Z68.43 Body mass index [BMI] 50.0-59.9, adult; Z79.4 Long term (current) use of insulin
CPT/HCPCS: 36415; 73030; 73130; 80053; 80061; 82306; 85025; 85651; 86038; 86140; 86200; 86430

== ENCOUNTER → 2025-01-07 07:19 | Outpatient (CLI) | payer OTHER, SELFPAY ==
[2024-01-13 12:14] VITALS: BMI 51.5
--- NOTE | 2025-01-28 04:10 | DI.NM.S_ITS ---
DATE OF SERVICE: 01/07/2025 PHARMACOLOGICAL PERFUSION STUDY This is a stress study only. The patient canceled rest appointment. RADIOPHARMACEUTICAL: 26.6 millicuries technetium-99m Myoview IV was injected during stress. CARDIAC STRESS: The patient underwent IV Lexiscan perfusion study under the supervision of an attending staff using standard intravenous Lexiscan as per protocol. The patient remained hemodynamically stable. Baseline blood pressure 154/82. Baseline rhythm sinus. During stress some nonspecific ST-T changes. No significant arrhythmias. No chest pain. The patient had minimal dyspnea. RAW DATA: Breast shadow was seen. GATED STUDY: Stress LV ejection fraction 84% without any obvious wall motion abnormalities. Stress end-diastolic volume 103 mL. MYOCARDIAL PERFUSION SCAN: Stress supine and stress prone images were compared to each other. Stress supine images revealed moderate size, moderate to severely decreased perfusion of distal anterior wall extending into the distal anteroseptum and anterior apex; however, during stress prone images, complete resolution of those defects. Stress prone images revealed normal myocardial perfusion. CONCLUSION: This is a normal myocardial perfusion study with evidence of breast tissue attenuation artifact which got resolved during the stress prone images. The patient had a perfusion study in October 2016. At that time patient had reversible perfusion defect of anterior wall, basal anterolateral wall as well as distal anteroseptum. In this study, during stress prone images, complete resolution of stress supine perfusion defect. Preserved LV function. No ischemic EKG changes. Overall, low-risk myocardial perfusion scan. Donald Jules - [employer]/anay/AY doc#: [id number]/job#: [id number] dd: 01/27/2025 17:05:00 dt: 01/28/2025 01:42:00 DICTATING MD/COPIES TO: Becka Lucero MD COPIES MNE: KEN;
== END ==
LOC: NUCM 07:20
PROVIDERS: PCP Family Medicine; Referring Provider Internal Medicine Cardiovascular Disease; Visit Provider Internal Medicine Cardiovascular Disease
DX: I25.10 Atherosclerotic heart disease of native coronary artery without angina pectoris (principal)
CPT/HCPCS: 78451; 93017; A9502; J2785

== ENCOUNTER → 2025-01-18 15:57 | Outpatient (CLI) | payer OTHER, SELFPAY ==
[2024-01-13 12:14] VITALS: BMI 51.5
[2025-01-18 17:16] LABS: Hemoglobin A1C% w Est Avg Glu 8.5 % (4.0-6.0)
[2025-01-18 17:23] LABS: Blood Urea Nitrogen 10 mg/dL (7-17); Estimated Glomerular Filt Rate > 60 mL/min (>60)
== END ==
PROVIDERS: PCP Family Medicine; Referring Provider Family Medicine; Visit Provider Family Medicine
DX: E11.610 Type 2 diabetes mellitus with diabetic neuropathic arthropathy (principal); Z79.4 Long term (current) use of insulin; I10 Essential (primary) hypertension
CPT/HCPCS: 36415; 82565; 83036; 84520

== ENCOUNTER 2025-03-05 21:27 | Emergency (ER) | payer OTHER, SELFPAY ==
[2024-01-13 12:14] VITALS: BMI 51.5
--- NOTE | 2025-03-05 21:47 | ED_ITS ---
HPI - Fall General Chief Complaint: Fall Stated Complaint: GLF Time Seen by Provider: 03/05/25 21:47 History of Present Illness HPI Narrative: 69-year-old female past medical history of diabetes, hypertension, CHF, comes into the ED from home for evaluation mechanical trip and fall she states that she was getting out of her car proximally 15 minutes prior to arrival, she states that she hit her face no LOC not on blood thinners she was able to stand bear weight ambulate after, she is not sure of tetanus vaccine status she is okay with getting this updated here, she just wanted to be evaluated states that she does not want any pain medications states that she has some at home. She states that she is having some pain to her palms and her knees but states that she fell in gravel and states that this is not for concern. Related Data Home Medications ?Medication ?Instructions ?Recorded ?Confirmed metoprolol succinate 100 mg 200 mg PO ONCE PM 01/18/25 01/18/25 tablet,extended release 24 hr nitroglycerin 0.4 mg sublingual mg sublingual 01/18/25 01/18/25 tablet Previous Rx's ?Medication ?Instructions ?Recorded fexofenadine 180 mg tablet 180 mg PO BEDTIME #90 tabs 05/27/22 DISABLED PARKING PERMIT #1 ea 10/01/22 gabapentin 300 mg capsule See Rx Instructions .Route 0 12/24/22 .COMPLEX #180 caps triamcinolone acetonide 0.1 % 1 applic topical BID #80 grams 01/29/23 topical cream Glucose: Home Monitoring Kit #1 unit 03/04/23 omeprazole 40 mg capsule,delayed 40 mg PO DAILY #90 ca ps 04/08/23 release Glucose: Test Strips #100 ea 06/19/23 fluticasone propionate 50 1 spray intranasal BID #16 g cedric 08/04/23 mcg/actuation nasal spray,suspension (Flonase Allergy Relief) fluoxetine 20 mg capsule 20 mg PO DAILY #90 caps 05/31 amlodipine 10 mg tablet 10 mg PO DAILY #90 tabs 11/28 furosemide 20 mg tablet (Lasix) 20 mg PO BID #180 tabs 04/13/24 metformin 1,000 mg tablet 1,000 mg PO BIDCC #180 tabs 04/13/24 insulin lispro 100 unit/mL 30 unit (0.3 mL) SUBCUT .AC meals 07/23/24 subcutaneous solution (Humalog #60 mL U-100 Insulin) atorvastatin 40 mg tablet 40 mg PO ONCE PM #90 tabs clotrimazole-betamethasone 1 1 applic topical BID #60 mL 09/03/24 %-0.05 % lotion insulin glargine 100 unit/mL 80 unit (0.8 mL) SUBCUT B ID #50 mL 09/03/24 subcutaneous solution (Lantus U-100 Insulin) insulin syringe-needle U-100 1 mL See Rx Instructions .Route 09/03/24 31 gauge x /16 .COMPLEX #100 ea lancets 31 gauge (Comfort Touch #100 ea 09/03/24 Ultra Thin Lancets) lisinopril 40 mg tablet 40 mg PO DAILY #90 tabs 08/07 0 nystatin 100,000 unit/gram topical 1 applic topical [place] #30 grams 09/03/24 powder ([facility]) celecoxib 100 mg capsule 100 mg PO BID #180 caps 11/05 08/29 meloxicam 15 mg tablet 15 mg PO DAILY #30 tabs 11/06 05/01 nystatin 100,000 unit/gram topical 1 applic topical BI D #60 grams 01/06/25 powder terbinafine HCl 250 mg tablet 250 mg PO DAILY #30 tabs 01/18/25 tirzepatide 10 mg/0.5 mL 10 mg (0.5 mL) SUBCUT QWEEK #2 mL 01/25/25 subcutaneous pen injector oxycodone-acetaminophen 5 mg-325 1 tab PO BID PRN pain #60 tabs 02/17/25 mg tablet amoxicillin 875 mg-potassium 1 tab PO BID 5 days #10 t abs 03/05/25 clavulanate 125 mg tablet Allergies Allergy/AdvReac Type Severity Reaction Status Date / Time empagliflozin (From AdvReac Severe severe Verified 03/05/25 21:49 Jardiance) genital rash Review of Systems Review of Systems Narrative: General: Denies fever, chills, weight loss HEENT: Positive closed head injury, Denies headache, eye drainage, eye irritation, head trauma, sore throat, voice change Cardiovascular: Denies any chest pain, palpitations, tachycardia Respiratory: Denies any shortness of breath, cough, wheeze, stridor GI/: Denies any abdominal pain, nausea, vomiting, diarrhea, bright red blood per rectum, melanotic stools, urinary frequency, urinary retention, dysuria, hematuria MSK: Denies any joint pain, muscle pains, swelling Skin: Denies any rashes, lesions, discoloration Neuro: Denies any headache, lightheadedness, dizziness, fainting, weakness Psych: Denies SI/HI Patient History Medical History (Updated 03/05/25 @ 23:53 by Eduardo Hurst DO) Urinary incontinence Heart disease Congestive heart failure Osteoarthritis Morbid obesity with BMI of 50.0-59.9, adult Diabetes mellitus Hypertension Sleep apnea Peripheral neuropathy Surgical History (Updated 02/12/23 @ 15:02 by Dhruv Groves MD) History of hysterectomy History of cholecystectomy History of knee replacement (01/2015) Family History Mother Alcohol abuse Skin cancer Father Heart attack Social History household members: family and children alcohol intake frequency: holidays/special occasions only Exam Narrative Exam Narrative: General: Cooperative, well-developed, not in acute distress HEENT: Patient with abrasion noted to the top of her nose, no laceration noted, no septal hematoma, mild tenderness to palpation, PERRLA, normal sclera, eyelids normal Neck: Active full range of motion, atraumatic Chest: Normal to inspection, negative crepitus, no overlying erythema ecchymosis Respiratory: Normal respiratory effort, not in acute respiratory distress, clear to auscultation bilaterally negative cough, wheeze, tachypnea, rhonchi, rales Cardiology: Regular rate rhythm negative gallop, murmur, rubs GI/: No tenderness to palpation, soft, non rigid, normal to inspection, exam deferred MSK: Full active range of motion in all 4 extremities, atraumatic, patient does have some mild tenderness to palpation of right knee but she is able to stand bear weight ambulate unassisted, Skin: Patient does have some small scattered abrasions noted to her bilateral palms and knees Neuro: Alert awake oriented x3, moves all 4 extremities spontaneously, cranial nerves intact, able to answer all questions appropriately follows commands appropriately Psych: Cooperative, negative suicidal or homicidal ideations Initial Vital Signs Initial Vital Signs: Vital Signs Temperature 97.9 F 03/05/25 21:49 Pulse Rate 92 H 03/05/25 21:49 Respiratory Rate 18 03/05/25 21:49 Blood Pressure 167/84 H 03/05/25 21:49 Pulse Oximetry 97 03/05/25 21:49 Oxygen Delivery Method Room Air 03/05/25 21:49 Course Orders Ordered: ED Orders 03/05/25 21:51 CT facial bones wo con Stat CT head/brain wo con Stat 03/05/25 21:52 CT cervical spine wo con Stat Discontinued Medications Diphtheria/Tetanus/Acell Pertussis (Tet,Diph,Pertuss(Acell),Vac/Pf 0.5 Ml Syringe) 0.5 ml IM .ONCE ONE Stop: 03/05/25 21:52 Last Admin: 03/05/25 23:16 Dose: 0.5 ml Documented By: JORJE Vital Signs Vital signs: Vital Signs - 8 hr 03/05/25 21:49 Temperature 97.9 F Pulse Rate 92 H Respiratory Rate 18 Blood Pressure 167/84 H Pulse Oximetry 97 Oxygen Delivery Method Room Air MDM - Fall MDM Narrative Medical decision making narrative: 69-year-old female with a past medical history of hypertension diabetes hyperlipidemia coming into the ED from home for evaluation of mechanical trip and fall, she states that proximally 15 minutes prior to arrival she fell slipped on something when she was getting out of her car states she landed face 1st no LOC not on blood thinners was complaining of some other pain abrasions to her palms and knees but she is neurovascularly intact otherwise no signs of laceration repair no septal hematoma on the nose but does have superficial abrasion, patient otherwise neurovascularly intact NIH of 0. Tetanus was updated here, CT scan of the head without any acute findings, CT face does show mildly displaced nasal bone fracture however patient without any septal hematoma patient will be treated prophylactically with Augmentin, CT scan of the cervical spine without any fracture Discharge Plan Departure Patient Disposition: Home Clinical Impression: Closed fracture nasal bone, Closed head injury, Ground-level fall Instructions: DI for Nose Fracture, DI for Closed Head Injury Activity Restrictions/Additional Instructions: Please follow up with your primary care doctor as needed Please read the discharge instructions sheet carefully and bring all papers to all doctor follow-up visits, as it may contain information that your doctor may want to see. Disease processes change and evolve, if your symptoms worsen or if you develop any new symptoms that are concerning to you please return for evaluation. Your evaluation today does not show any evidence of any life- threatening/serious illnesses requiring admission to the hospital or surgery. Please follow-up with your doctor for re-evaluation in approximately 1 day. Seek immediate medical attention for any worrisome symptoms. *If you do not have a primary care provider please contact the [facility] Resource line at [phone]. They will ask some questions about your medical history and help get you set up with a doctor in the community. Prescriptions: New amoxicillin-pot clavulanate 875-125 mg tablet 1 tab PO BID 5 Days Qty: 10 0RF No Action insulin lispro [Humalog U-100 Insulin] 100 unit/mL solution 30 unit SUBCUT .AC meals MDD 120 U Qty: 60 5RF celecoxib 100 mg capsule 100 mg PO BID Qty: 180 1RF terbinafine HCl 250 mg tablet 250 mg PO DAILY Qty: 30 0RF metoprolol succinate 100 mg tablet extended release 24 hr 200 mg PO ONCE PM nitroglycerin 0.4 mg tablet, sublingual sublingual nystatin 100,000 unit/gram powder 1 applic topical BID Qty: 60 0RF triamcinolone acetonide 0.1 % cream 1 applic topical BID Qty: 80 0RF Rx Instructions: Apply to affected area on both legs twice daily (DME) Glucose: Home Monitoring Kit 0 .Route .MEDSUPPLY Qty: 1 0RF Dose Instruction: As directed Rx Instructions: Use to check blood sugar 3 times a day (DME) Glucose: Test Strips 0 .Route .MEDSUPPLY Qty: 100 11RF Dose Instruction: As directed Rx Instructions: One Touch Ultra strips. Use to check blood sugar 2 times a day amlodipine 10 mg tablet 10 mg PO DAILY Qty: 90 2RF fexofenadine 180 mg tablet 180 mg PO BEDTIME Qty: 90 3RF gabapentin 300 mg capsule See Rx Instructions .ROUTE .COMPLEX Qty: 180 2RF Dose Instruction: TAKE ONE CAPSULE BY MOUTH TWICE DAILY Rx Instructions: TAKE ONE CAPSULE BY MOUTH TWICE DAILY omeprazole 40 mg capsule,delayed release(DR/EC) 40 mg PO DAILY Qty: 90 2RF fluticasone propionate [Flonase Allergy Relief] 50 mcg/actuation spray, suspension 1 spray intranasal BID Qty: 16 3RF Rx Instructions: administer into each nostril fluoxetine 20 mg capsule 20 mg PO DAILY Qty: 90 3RF furosemide [Lasix] 20 mg tablet 20 mg PO BID Qty: 180 3RF metformin 1,000 mg tablet 1,000 mg PO BIDCC Qty: 180 3RF Patient Comments: patient states took 500mg 11/04/18 atorvastatin 40 mg tablet 40 mg PO ONCE PM Qty: 90 3RF clotrimazole-betamethasone 1-0.05 % lotion 1 applic topical BID Qty: 60 4RF Rx Instructions: Apply to affected area twice daily for 2-4 weeks Lantus U-100 Insulin 100 unit/mL solution 80 unit SUBCUT BID Qty: 50 5RF insulin syringe-needle U-100 1 mL 31 gauge x 5/16 syringe See Rx Instructions .ROUTE .COMPLEX Qty: 100 3RF Dose Instruction: use 3 times a day with insulin Rx Instructions: use 3 times a day with insulin (DME) Comfort Touch Ult Thin Lancets 31 gauge misc See Rx Instructions .Route Qty: 100 3RF Rx Instructions: As directed lisinopril 40 mg tablet 40 mg PO DAILY Qty: 90 1RF nystatin [Nyamyc] 100,000 unit/gram powder 1 applic topical DAILY Qty: 30 5RF tirzepatide 10 mg/0.5 mL pen injector 10 mg SUBCUT QWEEK Qty: 2 5RF oxycodone-acetaminophen 5-325 mg tablet 1 tab PO BID PRN (Reason: pain) Qty: 60 0RF Rx Instructions: EXEMPT (DME) DISABLED PARKING PERMIT See Rx Instructions .ROUTE .MEDSUPPLY Qty: 1 0RF Rx Instructions: I FIND THIS PATIENT TO BE MEDICALLY DISABLED AND QUALIFIED FOR DISABLE PARKING INDICATED, AND SIGNED ON THE ACCOMPANYING [employer] APPLICATION FOR INDIVIDUALS meloxicam 15 mg tablet 15 mg PO DAILY Qty: 30 0RF Referrals: Dhruv Groves MD [Primary Care Provider, Family Practice] Stand Alone Forms: Patient Portal/API
[2025-03-05 21:49] VITALS: BP 167/84; PULSE 92; RESP 18; TEMP 36.6; O2SAT 97; BMI 46.0
--- NOTE | 2025-03-05 21:51 | DI.CT.S_ITS ---
PROCEDURE: CT FACIAL BONES WO CON INDICATIONS: contusion to nose TECHNIQUE: Noncontrast 2.5 mm thick axial images acquired from the mandible through the frontal sinuses, with coronal and sagittal reformatting. For radiation dose reduction, the following was used: automated exposure control, adjustment of mA and/or kV according to patient size. COMPARISON: None. FINDINGS: Image quality: Streak artifact from dental amalgam mildly limits evaluation of surrounding structures. Bones and teeth: Mildly displaced nasal bone fracture. Nasal septum is intact. Orbital evans are intact. Sinus evans show no fracture or deformity. Visualized portions of the mandible demonstrate no fractures or subluxation. Zygomatic arches are intact. Pterygoid plates are intact. Visualized portions of the skull base and auditory canals are intact. Sinuses: Paranasal sinuses are aerated, without fluid levels, mucosal thickening, or mucoceles. Mastoid air cells are aerated. Soft tissues: No edema, masses, or fluid collections. No enlarged lymph nodes. No soft tissue lacerations or debris. Vascular: Visualized vascular structures appear normal in the absence of contrast. Bony vascular foramina and canals are intact. IMPRESSION: Mildly displaced nasal bone fracture. Approved by: Richelle Suarez M.D.,Ph.D. on 03/05/2025 at 23:48
--- NOTE | 2025-03-05 21:51 | DI.CT.S_ITS ---
PROCEDURE: CT HEAD/BRAIN WO CON INDICATIONS: Trauma TECHNIQUE: Noncontrast 4.5 mm thick angled axial sections acquired from the foramen magnum to the vertex, with coronal and sagittal reformats. For radiation dose reduction, the following was used: automated exposure control, adjustment of mA and/or kV according to patient size. COMPARISON: None. FINDINGS: Image quality: Diagnostic. CSF spaces: Basal cisterns are patent. No extra-axial fluid collections. Ventricles are normal in size and shape. Brain: No midline shift. No intracranial mass effect or hemorrhage. [place]- white matter interface is within normal limits. Skull and face: Calvarium and visualized facial bones are intact, without suspicious lesions. Sinuses: Visualized sinuses and mastoids are clear. IMPRESSION: No acute intracranial hemorrhage. Dictated by: Hoang Up M.D. on 03/05/2025 at 23:32 Approved by: Hoang Up M.D. on 03/05/2025 at 23:34
--- NOTE | 2025-03-05 21:52 | DI.CT.S_ITS ---
PROCEDURE: CT CERVICAL SPINE WO CON INDICATIONS: trauma TECHNIQUE: Noncontrast 3 mm thick sections acquired from the skull base to the T4 level. Sagittal and coronal reformats were then constructed. For radiation dose reduction, the following was used: automated exposure control, adjustment of mA and/or kV according to patient size. COMPARISON: None. FINDINGS: Image quality: Diagnostic Bones: No fractures or dislocations. Visualized superior ribs are intact. Multilevel degenerative changes. Soft tissues: Prevertebral soft tissues are normal in thickness. No paravertebral hematomas. No apical pneumothoraces. IMPRESSION: No acute displaced fracture or traumatic subluxation. Approved by: Richelle Suarez M.D.,Ph.D. on 03/05/2025 at 23:50
[2025-03-05] MEDS: TET,DIPH,PERTUSS(ACELL),VAC/PF 0.5 ML SYRINGE IM (23:16)
[2025-03-06] MEDS: AMOXICILLIN/CLAV 875/125 MG 1 TAB PO (00:02)
[2025-03-06 00:15] VITALS: BP 180/90; PULSE 81; RESP 16; O2SAT 96
== END 2025-03-06 00:17 | disposition home or self-care (01) ==
PROVIDERS: Emergency Provider Student in an Organized Health Care Education/Training Program; PCP Family Medicine
DX: S02.2XXA Fracture of nasal bones, initial encounter for closed fracture (principal); S09.8XXA Other specified injuries of head, initial encounter; S60.512A Abrasion of left hand, initial encounter; S60.511A Abrasion of right hand, initial encounter; S80.212A Abrasion, left knee, initial encounter; S80.211A Abrasion, right knee, initial encounter; W18.30XA Fall on same level, unspecified, initial encounter; Z23 Encounter for immunization
CPT/HCPCS: 70450; 70486; 72125; 90471; 99283; 99284; 90715